=== PATIENT | male | born 1940 | race Caucasian/White ===

== ENCOUNTER → 2018-05-08 | Day surgery (SDC) | payer OTHER ==
[2018-04-22 16:24] VITALS: BMI 30.8
[~2018-05-08] MED LIST: DESFLURANE GAS 240 ML BOTTLE IH ONE; LIDOCAINE 1%/EPI 1:100000 (20 ML MULTI DOSE VIAL) ONE; LIDOCAINE HCL 1%, 10 MG/ML (20ML VIAL) INF ONE; LIDOCAINE HCL 1%, 10 MG/ML (20ML VIAL) ONE; MIDAZOLAM HCL 2 MG/2 ML SINGLE DOSE VIAL ONE; PROPOFOL 20 ML ONE; SUCCINYLCHOLINE CHLORIDE 200 MG/10 ML VIAL ONE; ceFAZolin SODIUM 1 GM VIAL ONE
[2018-05-08 06:16] VITALS: TEMP 97.6
--- NOTE | 2018-05-08 11:03 | OP ---
Operative Note - Note: Operative Date: 05/08/18 Pre-Operative Diagnosis: Multiple Basal Cell Carcinomas- Scalp, Neck, Back Operation: Excision of Basal Cell Carcinoma Right Parietal Region with Frozen Section and Double Rotation Flap Closure, Excision Basal Cell Carcinoma Left Neck with Frozen section and Flap closure, Excision Basal Cell Carcinomas Left temporal scalp and Right Upper Back. Post-Operative Diagnosis: Same as Pre-op Surgeon: Shailesh Ramires Anesthesia: Fractional Specimens Removed: Basal Cell Carcinomas Scalp x 2, LEft neck, Right upper Back Operative Report Dictated: Yes
--- NOTE | 2018-05-08 11:35 | OP ---
DATE OF OPERATION: 05/08/2018 AGE: 78. SEX: Male. PREOPERATIVE DIAGNOSIS: Multiple basal cell carcinomas of the scalp, neck, and back. POSTOPERATIVE DIAGNOSIS: Multiple basal cell carcinomas of the scalp, neck, and back. PROCEDURE PERFORMED: 1. Excision of basal cell carcinoma, right parietal region with frozen section and double rotation flap closure. 2. Excision of basal cell carcinoma, left neck with frozen section and flap closure. 3. Excision of basal cell carcinoma, left temporal scalp. 4. Excision of basal cell carcinoma, right upper back. SURGEON: Shailesh Ramires MD ANESTHESIA: Fractional. PROCEDURE: The patient was on the operating table in supine position, and fractional anesthesia was administered by the anesthesiologist. The surgical areas were each injected with a solution of 1% lidocaine with epinephrine using a 30-gauge needle. After allowing sufficient time for the epinephrine to take effect, the right parietal scalp lesion was addressed first. This lesion was approximately 2 cm in width and required approximately a 2.5-cm excision. This was designed in rhomboid fashion with the plan of using bilateral rhomboid flaps for closure. The incision was made as marked, and the lesion was excised down to galea. Hemostasis was achieved with electrocautery, and the lesion was tagged both anteriorly and inferiorly for pathological orientation. While this lesion was pending frozen section, the second lesion requiring frozen section of the left neck was infiltrated with a solution of 1% lidocaine with epinephrine and excised and also sent for frozen section. Simple excisions of the left temporal scalp lesion and left upper back lesion were performed with elliptical excisions and closed primarily. These closures were performed in layered fashion. Deep tissues were closed with number 4-0 Biosyn suture in interrupted, buried fashion, and skin was closed with number 5-0 nylon suture in simple interrupted fashion. Frozen section of the other 2 lesions revealed complete excisions; so, closure was performed. Closure of the left neck lesion was performed by undermining both sides of the flap modestly using electrocautery and advancing closure in layered fashion. Deep tissues were closed with number 4-0 Biosyn suture in interrupted buried fashion, and skin was closed with number 4-0 and 5-0 nylon suture in continuous horizontal mattress fashion. The right parietal lesion was then approached for closure, and the bilateral rhomboid-type flap closure was designed. These incisions were made as marked, and flaps were undermined and rotated and inset in layered fashion. Deep tissues closed with number 4-0 Biosyn suture in interrupted buried fashion and skin closed with number 4-0 and 5-0 nylon suture in simple interrupted fashion. Sterile dressings were then applied and secured with Tegaderm dressings. The patient was then awoken from anesthesia without any difficulty and taken from the operating room to the recovery room in satisfactory condition, having tolerated the procedure well. Bernardo ROCHE/[id number]
[2018-05-08 13:00] VITALS: BP 127/56; PULSE 75
--- NOTE | 2018-05-13 14:21 | PATH ---
Surgical Pathology Report Patient Name: ELENA MARTINEZ Med. Rec. #: [id number] /Age/Gender: 1940 (Age: 78) / M Account: [id number] Location: [facility] SURGICAL Taken: 05/08/2018 Received: 05/08/2018 Reported: 05/13/2018 Physicians: Shailesh Ramires M.D. Specimen(s) Received A: SCALP RIGHT TEMPORAL AREA B: LEFT NECK C: RIGHT UPPER BACK SKIN LESION Clinical History Basal cell carcinoma Intraoperative Consult Diagnosis A. Lesion right temporal area, excision: Closest inferior (en face) margin is negative. B. Left neck lesion, excision: Medical Office Asst surgical margins are negative. Fran West, 05/08/18. Final Diagnosis A. SKIN, SCALP, TEMPORAL, LESION, RIGHT, EXCISION (FS): INVASIVE SQUAMOUS CELL CARCINOMA, MODERATELY DIFFERENTIATED, KERATINIZING TYPE, ULCERATED AND INFLAMED. TUMOR MEASURES 1.1 x 0.5 CM. NO LYMPHOVASCULAR OR PERINEURAL INVASION IDENTIFIED PRIOR BIOPSY SITE CHANGES PRESENT. SURGICAL MARGINS ARE NEGATIVE; CLOSEST INFERIOR (EN FACE MARGIN IS NEGATIVE). B. SKIN, NECK, LEFT, EXCISION (FS): INVASIVE SQUAMOUS CELL CARCINOMA, MODERATELY DIFFERENTIATED, WITH FOCAL BASALOID FEATURES. TUMOR MEASURES 1 x 0.4 CM IN GREATEST DIMENSION. NO LYMPHOVASCULAR OR PERINEURAL INVASION IDENTIFIED SURGICAL MARGINS ARE NEGATIVE. SEE COMMENT. C. SKIN, UPPER BACK, RIGHT, EXCISION: INVASIVE BASAL CELL CARCINOMA. TUMOR MEASURES 1 x 0.2 CM. NO LYMPHOVASCULAR OR PERINEURAL INVASION IDENTIFIED SURGICAL MARGINS ARE NEGATIVE. Comment: Part B, Immunohistochemical stains performed at [place], [place] ([id number]) and interpreted at [facility] show the tumor is positive for high molecular cytokeratin and ERASMO (patchy); while negative for Butch-Ep4. Overall immunophenotype is consistent with squamous cell carcinoma with focal basaloid features. Prior materials are noted. Electronically Signed Dayana Reddy M.D. Gross Description A. Received fresh for intraoperative consultation, labeled "lesion right temporal area" is a 3 x 1.6 skin ellipse excised to a depth of 0.4 cm, with a short suture designating inferior margin and a long suture designating anterior margin, per surgeon. Clock orientation is used. The specimen is inked as follows: 11-5: blue (including inferior margin, 3:00), 5-11: red (9:00, superior); black deep margin. The surface shows a variegated ulcerated lesion measuring 1.1 x 0.5 cm which abuts the inferior (3:00) margin, 0.2 from superior (9:00) margin, 0.5 cm from superior, 0.7 cm from anterior, and 0.3 from deep margin. Medical Office Asst en face sections are submitted for frozen section analysis. The specimen is entirely submitted in 6 cassettes as follows: FSA1: Frozen section residue (enface margins: inferior (3:00), 12-3, 3-6); FSA2: Perpendicular section, lesion with deep margin; 3-4: Sequential sections of lesion, anterior-posterior; 5- bisected tips (anterior,12:00); 6- bisected tips (posterior,6:00). B. Received fresh for intraoperative consultation, labeled "left neck basal cell carcinoma" is a 3.2 x 1.7 cm skin ellipse excised to a depth of 4 mm, with a short suture designating the anterior margin and a long suture indicating the superior margin, per surgeon. The specimen is inked as follows: anterior-blue, posterior-red, deep margin, superior and inferior tips - black. The surface of the skin shows a 0.9 x 0.4 cm ill-defined brown depressed lesion, 5 mm from the anterior margin and > 1 cm from all other radial margins. Medical Office Asst sections are submitted for frozen section analysis. The specimen is entirely submitted in four cassettes as follows: FSB1: frozen section residue; B2, additional renewals representative sections of lesion with anterior, posterior and deep margins; B3- superior tip; B4: inferior tip. C. Received in formalin labeled "right upper back skin lesion," is a 2.6 x 1.4 cm brown, elliptical, unoriented portion of skin excised to depth of 0.6 cm. The epidermal surface displays a 1.0 x 0.9 cm brown-pink, crusted lesion. The lesion is 0.1 cm from the closest radial margin. The base is inked green and the specimen is serially sectioned. The specimen is entirely submitted in 5 cassettes as follows: 1-undesignated tips; 6-7-zhiyqflkuzfh submitted remainder of specimen (lesion in cassettes 3-4). DL/05/08/2018 ebram/05/08/2018
== END | disposition home or self-care (01) ==
LOC: JASU-SURG 05:07
PROVIDERS: ATTEND Plastic Surgery
PROC: 0JB50ZZ Excision of Left Neck Subcutaneous Tissue and Fascia, Open Approach (ICD-10-PCS; 2018-05-08)
PROC: 0JX50ZZ Transfer Left Neck Subcutaneous Tissue and Fascia, Open Approach (ICD-10-PCS; principal; 2018-05-08 08:00)
DX: C44.41 Basal cell carcinoma of skin of scalp and neck (principal); C44.319 Basal cell carcinoma of skin of other parts of face; C44.519 Basal cell carcinoma of skin of other part of trunk; I10 Essential (primary) hypertension; E11.9 Type 2 diabetes mellitus without complications; Z79.4 Long term (current) use of insulin
CPT/HCPCS: 82962; 88305-TC; 88331-TC

== ENCOUNTER 2019-09-06 16:13 | Inpatient (IN) | payer OTHER ==
--- NOTE | 2019-09-06 17:17 | PDOC ---
Documentation entered by Wesley Pratt SCRIBE, acting as scribe for Camille Schroeder MD. Camille Schroeder MD: This documentation has been prepared by the Terence garcía Daniel, SCRIBE, under my direction and personally reviewed by me in its entirety. I confirm that the documentation accurately reflects all work, treatment, procedures, and medical decision making performed by me. Attending Attestation - Resident Resident Name: Santos Gao - ED Attending Attestation I have performed the following: I have examined & evaluated the patient, The case was reviewed & discussed with the resident, I agree w/resident's findings & plan, Exceptions are as noted - HPI HPI: 09/06/19 17:17 79 yo male BIBA from or hemoglobin of 6 and right lower lobe infiltrate seen on chest x-ray Past medical history significant for chronic blood infusions for chronic anemia Patient has a chronic Tracheostomy 09/06/19 17:43 - Physicial Exam PE: 09/06/19 19:11 alert 79 yo male with chronic trach had c/o shortness of breath when I saw him lungs decreased bs b/l abd g tube, no eboun,nontender neuro alert,poor historian 09/06/19 21:01 - Medical Decision Making 09/06/19 17:46 Due to the reported right lower lobe infiltrate on the anterior chest x-ray patient was given Zosyn and vancomycin after ultrasound was used to establish IV access EKG is normal sinus rhythm with occasional PVCs , premature atrial complexes at a rate of 100 bpm, QTC is equal to 410 no signs of acute ischemia appreciated 09/06/19 17:48 Low grade fever 100.4 09/06/19 18:42 Review of the labs shows a leukocytocysis of about 15,000, hemoglobin 8.3, hematocrit 26.7 and normal platelets The LFTs are elevated Troponin is less than 0.02 INR is 1.74 and review his chemistry shows bumped BNP of 47 and glucose of 218 cxr reveals bilateral infiltrates 09/06/19 21:03 pr admitted to ICU pt is FULL CODE
[2019-09-06] MEDS ORDERED: VANCOMYCIN 1,000 MG in DEXTROSE 5%-WATER - 250 ML IVPB ONE (17:35)
[2019-09-06] MEDS ORDERED: PIPERACILLIN/TAZOB 4.5 GM 4.5 GM in DEXTROSE 5%-WATER 100 ML IVPB ONE (17:35)
[2019-09-06 17:42] LABS: BASO % 0.3 % (0-2.0); EOS % 1.9 % (0-4.5); HEMATOCRIT 26.7 % (35.4-49); HEMOGLOBIN 8.3 GM/dL (11.7-16.9); LYMPH % 7.5 % (8-40); MCH 28.6 pg (25.7-33.7); MCHC 30.9 g/dl (32.0-35.9); MEAN CELL VOLUME 92.4 fl (80-96); MEAN PLT VOLUME 9.3 fl (7.5-11.1); MONO % 9.8 % (3.8-10.2); NEUT % 80.5 % (42.8-82.8); PLATELET COUNT 304 K/MM3 (134-434); RBC 2.89 M/mm3 (4.00-5.60); RDW 19.5 % (11.9-15.9); WHITE BLOOD COUNT 14.9 K/mm3 (4.0-10.0)
[2019-09-06 17:48] LABS: VENOUS PC02 62.9 mmHg (38-52); VENOUS PH 7.34 (7.31-7.41)
[2019-09-06 17:49] LABS: VENOUS PO2 < 49 mmHg (28-48)
[2019-09-06] MEDS ORDERED: PIPERACILLIN/TAZOB 4.5 GM 4.5 GM/100 ML BAG IVPB ONE (17:55)
[2019-09-06 17:56] LABS: INR 1.74 (0.83-1.09); PROTHROMBIN TIME (PATIENT) 20.6 SEC (9.7-13.0)
[2019-09-06] MEDS ORDERED: VANCOMYCIN 1 GRAM (PRE-DOCKED) 1,000 MG/250 ML BAG IVPB ONE (17:56)
[2019-09-06 17:59] LABS: ACTIVATED PTT 43.5 SECONDS (25.2-36.5)
--- NOTE | 2019-09-06 18:03 | PDOC ---
History of Present Illness - General Chief Complaint: Abnormal Lab Results (Outside) Stated Complaint: Abnormal Labs Time Seen by Provider: 09/06/19 16:47 History Source: Patient, Family, Alf Records Exam Limitations: Clinical Condition - History of Present Illness Initial Comments: 09/06/19 18:03 79M with a PMH of COPD, DM, HTN, GERD, hypothyroidism who presents to to the ER from [facility] for abnormal labs. Pt is with his and daughters who help provide the history. The states that the patient had bloodwork that was was abnormal 2 days ago. They state that he had a "high WBC" and he "always has low hemoglobin" secondary to anemia of chronic disease per pt's PCP. The patient admits to a worsening cough x "a few days" with fever and chills. Denies CP, worsening SOB. Past History - Past Medical History Allergies/Adverse Reactions: Allergies Allergy/AdvReac Type Severity Reaction Status Date / Time heparin Allergy Verified 09/06/19 16:50 Home Medications: Ambulatory Orders Atenolol [Tenormin -] 50 mg PO DAILY 12/22/12 Atorvastatin Ca [Lipitor] 40 mg PO DAILY 12/22/12 Colchicine/Probenecid [Col-Benemid] 1 tab PO DAILY 12/22/12 Ezetimibe [Zetia] 10 mg PO DAILY 12/22/12 Insulin Lispro [Humalog] 12 unit SQ AC 12/22/12 Latanoprost 0.005% Eye Drops [Xalatan 0.005% Eye Drops -] 1 drop OU HS 12/22/12 Lisinopril/Hydrochlorothiazide [Lisinopril-Hctz 20-12.5 mg Tab] 1 each PO HS Aspirin [ASA -] 325 mg PO DAILY #0 03/23/15 Exenatide Microspheres [Bydureon Pen] 3.08 mg SQ WEEKLY 03/23/15 Insulin Glargine,Hum.rec.anlog [Lantus (10mL VIAL) -] 40 units SCJ HS 03/23/15 Levothyroxine [Synthroid -] 1 tab PO DAILY 03/23/15 [place]-3 Fatty Acids [Fish Oil] 1 cap PO DAILY 03/23/15 Anemia: No Asthma: No Cancer: Yes (squamous cell on back 2017) Cardiac Disorders: Yes (PAROXYSMAL ATRIAL FIBRILLATION x 1 episode) CVA: No COPD: No CHF: No Dementia: No Diabetes: Yes (IDDM) GI Disorders: Yes (DIVERTICULOSIS,COLON POLYPS,12 ADENOMAS) Disorders: Yes (NEPHROLITHIASIS) HTN: Yes Hypercholesterolemia: Yes Kidney Stones: Yes Liver Disease: No Seizures: No Thyroid Disease: Yes (HYPOTHYROIDISM) - Surgical History Abdominal Surgery: No Appendectomy: No Cardiac Surgery: No (ANGIOPLASTY) Cholecystectomy: No Lung Surgery: No Neurologic Surgery: No Orthopedic Surgery: Yes (FX LEG 1960S, CLOSED REDUCTION OF R ANKLE) - Psycho Social/Smoking Cessation Hx Smoking History: Former smoker Have you smoked in the past 12 months: No If you are a former smoker, when did you quit?: 45 years ago Information on smoking cessation initiated: No Hx Alcohol Use: No Drug/Substance Use Hx: No Substance Use Type: None Hx Substance Use Treatment: No Review of Systems - Review of Systems Able to Perform ROS?: Yes Comments:: 09/06/19 18:45 GENERAL/CONSTITUTIONAL: + for fever or chills. No weakness. HEAD, EYES, EARS, NOSE AND THROAT: No change in vision. No ear pain or discharge. No sore throat. CARDIOVASCULAR: No chest pain, palpitations, or lightheadedness. RESPIRATORY: + for cough. No wheezing, shortness of breath, or hemoptysis. GASTROINTESTINAL: No abdominal pain, nausea, vomiting, diarrhea, or constipation. GENITOURINARY: No dysuria, frequency, hematuria, or change in urination. MUSCULOSKELETAL: No joint or muscle swelling or pain. No neck or back pain. SKIN: No rash or lesions. NEUROLOGIC: No headache, numbness, tingling, focal weakness, loss of consciousness, or change in strength/sensation. Is the patient limited Portuguese proficient: No *Physical Exam - Vital Signs Last Vital Signs Temp Pulse Resp BP Pulse Ox 100.4 F H 102 H 20 161/70 99 09/06/19 17:38 09/06/19 17:38 09/06/19 17:38 09/06/19 16:50 09/06/19 17:38 - Physical Exam 09/06/19 18:46 GENERAL: Well developed, well nourished. Awake and alert. No acute distress. HEENT: Normocephalic, atraumatic. Hearing grossly normal. Moist mucous membranes. PERRLA, EOMI. No conjunctival pallor. Sclera are non-icteric. NECK: Trach in place. No JVD. CARDIOVASCULAR: Regular rate and rhythm. No murmurs, rubs, or gallops. PULMONARY: Decreased lung sounds in b/l lower lobes. Not in respiratory distress. ABDOMINAL: Soft. Non-tender. Non-distended. No rebound or guarding. GENITOURINARY: No CVA tenderness bilaterally. MUSCULOSKELETAL: Normal range of motion at all joints. No bony deformities or tenderness. EXTREMITIES: No cyanosis. No clubbing. No edema. No calf tenderness or swelling. SKIN: Sacral wound noted, stage 3. R heel wound noted. R latissimus wound noted. Otherwise, warm and dry. Normal capillary refill. No rashes. No jaundice. NEUROLOGICAL: Alert, awake, appropriate. Cranial nerves 2-12 grossly intact. Normal speech. PSYCHIATRIC: Cooperative. Good eye contact. Appropriate mood and affect. ED Treatment Course - LABORATORY CBC & Chemistry Diagram: 09/06/19 17:00 09/06/19 17:00 - ADDITIONAL ORDERS Additional order review: Laboratory Results 09/06/19 17:00 VBG pH 7.34 POC VBG pCO2 62.9 H POC VBG pO2 < 49 H VBG HCO3 32.7 H VBG O2 Sat (Gayle) 50.6 L VBG Base Excess 6.3 H 09/06/19 17:00 RBC 2.89 L MCV 92.4 MCHC 30.9 L RDW 19.5 H MPV 9.3 Neutrophils % 80.5 D Lymphocytes % 7.5 L D Monocytes % 9.8 Eosinophils % 1.9 Basophils % 0.3 - RADIOLOGY Radiology Studies Ordered: Category Date Time Status CHEST X-RAY PORTABLE* [RAD] Stat Radiology 09/06/19 16:53 Taken Medical Decision Making - Medical Decision Making 09/06/19 18:47 79M with MMP who presents to the ER with abnormal labs (increased WBC and decreased Hgb). CXR here shows b/l PNA. WBC 14. Hgb 8.4, not requiring immediate transfusion. Will give broad spectrum abx and admit. Discharge - Discharge Information Problems reviewed: Yes Clinical Impression/Diagnosis: Pneumonia Qualifiers: Pneumonia type: due to unspecified organism Laterality: bilateral Lung location : lower lobe of lung Qualified Code(s): J18.9 - Pneumonia, unspecified organism Sepsis Qualifiers: Sepsis type: sepsis due to unspecified organism Sepsis acute organ dysfunction status: unspecified Qualified Code(s): A41.9 - Sepsis, unspecified organism Condition: Guarded - Admission Yes - Follow up/Referral Referrals: Ed Jackson MD [Primary Care Provider] - - Patient Discharge Instructions - Post Discharge Activity
[2019-09-06 18:11] LABS: BILIRUBIN,TOTAL 0.3 mg/dL (0.2-1); BLOOD UREA NITROGEN 47.4 mg/dL (7-18); CALCIUM 8.5 mg/dL (8.5-10.1); CREATININE 0.7 mg/dL (0.55-1.3); POTASSIUM 4.3 mmol/L (3.5-5.1); TOT PROT 6.9 g/dl (6.4-8.2)
[2019-09-06] MEDS ORDERED: ACETAMINOPHEN 1000 MG/100 ML VIAL (NON FORMULARY) IVPB ONE (18:32)
[2019-09-06] MEDS ORDERED: SODIUM CHLORIDE 0.9% 1000 ML INFUS.BAG IV ONE (18:52)
[2019-09-06] MEDS ORDERED: ACETAMINOPHEN INJECTION 100 ML IVPB ONE (19:21)
[2019-09-06] MEDS ORDERED: LACTATED RINGERS SOLUTION 1,000 ML/1,000 ML INFUS.BAG IV SCH (22:00)
[2019-09-06] MEDS ORDERED: CHLORHEXIDINE GLUCONATE 4% CLEANSER FOR DECOLONIZATION TP SCH (22:00)
[2019-09-06] MEDS ORDERED: MUPIROCIN 2% TOPICAL OINTMENT FOR DECOLONIZATION NS SCH (22:00)
--- NOTE | 2019-09-06 22:09 | HP ---
Admitting History and Physical - Primary Care Physician PCP: Cheryl Joseph ([facility]) - Admission Chief Complaint: Abnormal Lab Values, Cough, Fever, Chills History of Present Illness: This is a 79 y/o man from [facility] with a PMHx of Chronic Respiratory Failure s/ p Trach, COPD, Chronic Anemia (blood transfusions), pAfib, HTN, HLD, DM, GERD, Nephrolithasis, Squamous Ca (Back,2017). Who presents to the ED for abnormal lab value- hemoglobin of 6 and right lower lobe infiltrate seen on chest x-ray done at the facility. The patient's family reported to the ED that the patient has had increased cough, fever and chills for several days. ED course was noted for: (1) T max 100.4 (2) Hgb 8.5, Hct 26.7 (3) Chest Xray image- bilateral infiltrates History Source: Family Member, Transfer Record Limitations to Obtaining History: Clinical Condition - Past Medical History Cardiovascular: Yes: AFIB, HTN, Hyperlipdemia Pulmonary: Yes: COPD, O2 Dependent (trach-vent) Gastrointestinal: Yes: GERD Renal/: Yes: Renal Calculi Heme/Onc: Yes: Anemia Infectious Disease: Yes: MRSA (sputum) Endocrine: Yes: Diabetes Mellitus, Hypothyroidism Dermatology: Yes: Squamous Cell (lumbar) - Past Surgical History Additional Past Surgical History: Tracheotomy G-Tube R-Ankle - Smoking History Smoking history: Former smoker Have you smoked in the past 12 months: No If you are a former smoker, when did you quit?: 45 years ago - Alcohol/Substance Use Hx Alcohol Use: No History of Substance Use: reports: None - Social History Usual Living Arrangement: Yes: [facility]pc ADL: Support Services History of Recent Travel: No Home Medications - Allergies Allergies/Adverse Reactions: Allergies Allergy/AdvReac Type Severity Reaction Status Date / Time heparin Allergy Verified 09/06/19 16:50 - Home Medications Home Medications: Ambulatory Orders Atorvastatin Ca [Lipitor] 80 mg PO DAILY 12/22/12 Colchicine/Probenecid [Col-Benemid] 1 tab PO DAILY 12/22/12 Ezetimibe [Zetia] 10 mg PO DAILY 12/22/12 Insulin Lispro [Humalog] 12 unit SQ AC 12/22/12 Latanoprost 0.005% Eye Drops [Xalatan 0.005% Eye Drops -] 1 drop OU HS 12/22/12 Lisinopril/Hydrochlorothiazide [Lisinopril-Hctz 20-12.5 mg Tab] 1 each PO HS Aspirin [ASA -] 325 mg PO DAILY #0 03/23/15 Exenatide Microspheres [Bydureon Pen] 3.08 mg SQ WEEKLY 03/23/15 Insulin Glargine,Hum.rec.anlog [Lantus (10mL VIAL) -] 40 units SCJ HS 03/23/15 Levothyroxine [Synthroid -] 1 tab PO DAILY 03/23/15 Banks-3 Fatty Acids [Fish Oil] 1 cap PO DAILY 03/23/15 Albuterol 2.5/Ipratropium 0.5 [Duoneb -] 1 neb NEB Q4H 09/06/19 Amiodarone HCl 200 mg PO DAILY 09/06/19 Apixaban [Eliquis] 5 mg PO BID 09/06/19 Metoprolol Tartrate 25 mg PO DAILY 09/06/19 Family Medical History Family History: Unable to Obtain Review of Systems - Review of Systems Constitutional: reports: Chills, Fever Eyes: reports: No Symptoms HENT: reports: No Symptoms Neck: reports: No Symptoms Respiratory: reports: Cough Gastrointestinal: reports: No Symptoms Genitourinary: reports: Incontinence Breasts: reports: No Symptoms Reported Musculoskeletal: reports: No Symptoms Integumentary: reports: No Symptoms Neurological: reports: No Symptoms Endocrine: reports: No Symptoms Hematology/Lymphatic: reports: No Symptoms Psychiatric: reports: No Symptoms Pain Intensity: 0 Physical Examination Vital Signs: Vital Signs Temperature 100.4 F H 09/06/19 17:38 Pulse Rate 102 H 09/06/19 17:38 Respiratory Rate 23 H 09/06/19 20:00 Blood Pressure 161/70 09/06/19 16:50 O2 Sat by Pulse Oximetry (%) 99 09/06/19 17:38 Constitutional: Yes: Mild Distress Eyes: Yes: WNL, Conjunctiva Clear, EOM Intact, PERRL HENT: Yes: WNL, Atraumatic, Normocephalic Neck: Yes: Other (trach- vent dependent) Cardiovascular: Yes: Tachycardia, Pulse Irregular, S1, S2 Respiratory: Yes: Diminished, Rhonchi, Wheezes, Other (trach- vent) Gastrointestinal: Yes: Soft, Other (PEG) Renal/: Yes: Incontinence Breast(s): Yes: WNL Musculoskeletal: Yes: WNL Extremities: Yes: WNL Edema: No Peripheral Pulses WNL: Yes Integumentary: Yes: Pressure Ulcer (stage 3- sacrum stage 2- right heel unstageable- left heel) Neurological: Yes: Alert, Oriented, Cran Nerves II-XII Intact ...Motor Strength: WNL Psychiatric: Yes: WNL, Alert, Oriented Labs: CBC, BMP 09/06/19 17:00 09/06/19 17:00 Laboratory Results - last 24 hr 09/06/19 09/06/19 09/06/19 17:00 17:00 17:00 WBC 14.9 H RBC 2.89 L Hgb 8.3 L Hct 26.7 L D MCV 92.4 MCH 28.6 MCHC 30.9 L RDW 19.5 H Plt Count 304 MPV 9.3 Absolute Neuts (auto) 12.0 H Neutrophils % 80.5 D Lymphocytes % 7.5 L D Monocytes % 9.8 Eosinophils % 1.9 Basophils % 0.3 Nucleated RBC % 0 PT with INR 20.60 H INR 1.74 H PTT (Actin FS) 43.5 H VBG pH POC VBG pCO2 POC VBG pO2 VBG HCO3 VBG O2 Sat (Gayle) VBG Base Excess Sodium Potassium Chloride Carbon Dioxide Anion Gap BUN Creatinine Est GFR (CKD-EPI)AfAm Est GFR (CKD-EPI)NonAf POC Glucometer Random Glucose Lactic Acid Calcium Total Bilirubin AST ALT Alkaline Phosphatase Troponin I < 0.02 Total Protein Albumin Influenza A (Rapid) Influenza B (Rapid) Blood Type Antibody Screen 09/06/19 09/06/19 09/06/19 17:00 17:00 17:00 WBC RBC Hgb Hct MCV MCH MCHC RDW Plt Count MPV Absolute Neuts (auto) Neutrophils % Lymphocytes % Monocytes % Eosinophils % Basophils % Nucleated RBC % PT with INR INR PTT (Actin FS) VBG pH 7.34 POC VBG pCO2 62.9 H POC VBG pO2 < 49 H VBG HCO3 32.7 H VBG O2 Sat (Gayle) 50.6 L VBG Base Excess 6.3 H Sodium 150 H Potassium 4.3 Chloride 113 H Carbon Dioxide 33 H Anion Gap 5 L BUN 47.4 H Creatinine 0.7 Est GFR (CKD-EPI)AfAm 104.03 Est GFR (CKD-EPI)NonAf 89.76 POC Glucometer Random Glucose 218 H Lactic Acid Calcium 8.5 Total Bilirubin 0.3 AST 79 H ALT 96 H Alkaline Phosphatase 159 H Troponin I Total Protein 6.9 Albumin 2.0 L Influenza A (Rapid) Influenza B (Rapid) Blood Type A NEGATIVE Antibody Screen Negative 09/06/19 09/06/19 09/06/19 17:15 18:50 19:05 WBC RBC Hgb Hct MCV MCH MCHC RDW Plt Count MPV Absolute Neuts (auto) Neutrophils % Lymphocytes % Monocytes % Eosinophils % Basophils % Nucleated RBC % PT with INR INR PTT (Actin FS) VBG pH POC VBG pCO2 POC VBG pO2 VBG HCO3 VBG O2 Sat (Gayle) VBG Base Excess Sodium Potassium Chloride Carbon Dioxide Anion Gap BUN Creatinine Est GFR (CKD-EPI)AfAm Est GFR (CKD-EPI)NonAf POC Glucometer Random Glucose Lactic Acid 1.3 Calcium Total Bilirubin AST ALT Alkaline Phosphatase Troponin I Total Protein Albumin Influenza A (Rapid) Negative Influenza B (Rapid) Negative Blood Type Cancelled Antibody Screen Cancelled 09/06/19 22:36 WBC RBC Hgb Hct MCV MCH MCHC RDW Plt Count MPV Absolute Neuts (auto) Neutrophils % Lymphocytes % Monocytes % Eosinophils % Basophils % Nucleated RBC % PT with INR INR PTT (Actin FS) VBG pH POC VBG pCO2 POC VBG pO2 VBG HCO3 VBG O2 Sat (Gayle) VBG Base Excess Sodium Potassium Chloride Carbon Dioxide Anion Gap BUN Creatinine Est GFR (CKD-EPI)AfAm Est GFR (CKD-EPI)NonAf POC Glucometer 289 Random Glucose Lactic Acid Calcium Total Bilirubin AST ALT Alkaline Phosphatase Troponin I Total Protein Albumin Influenza A (Rapid) Influenza B (Rapid) Blood Type Antibody Screen Current Medications Generic Name Dose Route Start Last Admin Trade Name Freq PRN Reason Stop Dose Admin Albuterol/Ipratropium 1 amp 09/07/19 00:00 09/07/19 01:05 Duoneb - NEB 1 amp RQ4H EFREN Administration Amiodarone HCl 200 mg 09/07/19 10:00 Cordarone - PO DAILY EFREN Apixaban 5 mg 09/07/19 10:00 Eliquis - PO BID EFREN Atorvastatin Calcium 80 mg 09/07/19 22:00 Lipitor - PO HS EFREN Chlorhexidine Gluconate 1 applic 09/06/19 22:00 Hibiclens For Decolonization - TP HS EFREN Lactated Ringer's 1,000 ml in 1,000 mls @ 60 mls/hr 09/06/19 22:00 09/06/19 23:24 Lactated Ringers Solution IV 60 mls/hr ASDIR EFREN Administration Piperacillin Sod/Tazobactam 100 mls @ 200 mls/hr 09/07/19 02:00 Sod 4.5 gm/ Dextrose IVPB Q8H-IV EFREN Protocol Piperacillin Sod/Tazobactam 100 mls @ 200 mls/hr 09/07/19 02:00 Sod 4.5 gm/ Dextrose IVPB 09/07/19 18:29 Q8H-IV EFREN Protocol Insulin Aspart 1 vial 09/06/19 22:00 09/06/19 23:25 Novolog Vial Sliding Scale - SQ 6 units ACHS EFREN Administration Protocol Levothyroxine Sodium 50 mcg 09/07/19 07:00 Synthroid - PO ACBK EFREN Metoprolol Tartrate 25 mg 09/07/19 10:00 Lopressor - PO DAILY EFREN Mupirocin 1 applic 09/06/19 22:00 Bactroban Ointment (For Decolonization) - NS 09/11/19 21:59 BID EFREN Intake & Output 09/04/19 09/05/19 09/06/19 09/07/19 23:59 23:59 23:59 23:59 Weight 86.137 kg Imaging - Results Chest X-ray: Image Reviewed EKG: Image Reviewed Problem List - Problems (1) Sepsis Assessment/Plan: Likely due to Pneumonia Blood Cultures-pending Urine Cultures-pending Urine Legionella-pending Sputum Culture-pending Sepsis Criteria Met IV: T Max 100.4, P 119,WBC 15.0, BUN 47 qSOFA 2 Zosyn and Vancomycin given in ED, will continue Appreciate ID consult Monitor CBC, BMP MAP>65 Gentle IVF Code(s): A41.9 - SEPSIS, UNSPECIFIED ORGANISM Qualifiers: Sepsis type: sepsis due to unspecified organism Sepsis acute organ dysfunction status: unspecified Qualified Code(s): A41.9 - Sepsis, unspecified organism (2) Pneumonia Assessment/Plan: Will treat for HAP vs VAP [id number] 2 Chest xray from [place]- right infiltrate Chest xray image obtained today- bilateral infiltrates +Leukocytosis T Max 100.4 Blood Cultures, Urine Cultures, Urine Legionella-pending Sputum Culture-pending Zosyn, Vancomycin given in ED, will continue Appreciate ID consult Monitor CBC, BMP O2- trach-vent Monitor vent settings Duonebs Code(s): J18.9 - PNEUMONIA, UNSPECIFIED ORGANISM Qualifiers: Pneumonia type: due to unspecified organism Laterality: bilateral Lung location: lower lobe of lung Qualified Code(s): J18.9 - Pneumonia, unspecified organism (3) Chronic respiratory failure with hypoxia and hypercapnia Assessment/Plan: s/p Trach- vent dependent Appreciate Pulm consult Monitor Spo2 Duonebs Code(s): J96.11 - CHRONIC RESPIRATORY FAILURE WITH HYPOXIA; J96.12 - CHRONIC RESPIRATORY FAILURE WITH HYPERCAPNIA (4) COPD (chronic obstructive pulmonary disease) Assessment/Plan: Continue Duonebs Chest Xray image- bilateral infiltrates Appreciate Pulm consult Monitor vitals Code(s): J44.9 - CHRONIC OBSTRUCTIVE PULMONARY DISEASE, UNSPECIFIED (5) Paroxysmal A-fib Assessment/Plan: stable Continue cardiac monitoring EKG- NSR with occasional PVCs, QTc 410 [id number] Continue BB, Eliquis Code(s): I48.0 - PAROXYSMAL ATRIAL FIBRILLATION (6) HTN (hypertension) Assessment/Plan: stable Monitor BP Continue Metoprolol Monitor renal function Code(s): I10 - ESSENTIAL (PRIMARY) HYPERTENSION (7) Diabetes mellitus Assessment/Plan: stable BGMs ISS Continue home med Code(s): E11.9 - TYPE 2 DIABETES MELLITUS WITHOUT COMPLICATIONS (8) HLD (hyperlipidemia) Code(s): E78.5 - HYPERLIPIDEMIA, UNSPECIFIED (9) GERD (gastroesophageal reflux disease) Code(s): K21.9 - GASTRO-ESOPHAGEAL REFLUX DISEASE WITHOUT ESOPHAGITIS Assessment/Plan This is a 79 y/o man from [facility] with a PMHx of Chronic Respiratory Failure s/ p Trach, COPD, Chronic Anemia (blood transfusions), pAfib, HTN, HLD, DM, GERD, Nephrolithasis, Squamous Ca (Back,2016). Admitted to ICU for Sepsis secondary to Pneumonia for further evaluation of their emergent condition. Plan: See Problem List FEN Replete lytes prn NPO DVT ppx OOB SCDs Continue Eliquis Code Status: Full Code Dispo: Requires Inpatient Care Visit type - Emergency Visit Emergency Visit: Yes ED Registration Date: 09/06/19 Care time: The patient presented to the Emergency Department on the above date and was hospitalized for further evaluation of their emergent condition. - New Patient This patient is new to me today: Yes Date on this admission: 09/06/19 - Critical Care Critical Care patient: Yes Total Critical Care Time (in minutes): 35 Critical Care Statement: The care of this patient involved high complexity decision making to prevent further life threatening deterioration of the patient 's condition and/or to evaluate & treat vital organ system(s) failure or risk of failure.
--- NOTE | 2019-09-06 22:23 | CONSULT ---
Consultation: REQUESTING PROVIDER: CONSULT REQUEST: We have been asked to medically evaluate this patient for acute respiratory distress. HISTORY OF PRESENT ILLNESS: 79 y.o. M PMH A-fib (on eliquis), cardiac stent placements, COPD, DM, HTN, GERD , diverticulosis, gout, chronic anemia, bladder & renal stones, hypothyroidism, multiple basal cell CA's (s/p excision) presenting from [facility] for pulmonary infiltrates seen on chest XR w/ complaints of mild dyspnea as well as anemia w/ hgb to 7.8. As per patient's (also his HCP), the patient was seen at a [facility] facility ([facility]) in July for respiratory distress 2/2 aspiration PNA; was subsequently intubated and trached after ~2weeks intubation; had + MRSA in sputum at this time. Since this time he has had chronic LLL infiltrates but as per [place] records CXR infiltrates are now b/l-- started on Ceftin @ [facility]. Pt also presenting with low grade fever, tachycardia & leukocytosis. Of note, pt's states he has been altered from baseline x 2-3 days. REVIEW OF SYSTEMS: CONSTITUTIONAL: Absent: fever, chills, diaphoresis, generalized weakness, malaise, loss of appetite, weight change HEENT: Absent: rhinorrhea, nasal congestion, throat pain, throat swelling, difficulty swallowing, mouth swelling, ear pain, eye pain, visual changes CARDIOVASCULAR: Absent: chest pain, syncope, palpitations, irregular heart rate, lightheadedness , peripheral edema RESPIRATORY: cough, shortness of breath, dyspnea Absent: orthopnea, wheezing, stridor, hemoptysis GASTROINTESTINAL: Absent: abdominal pain, abdominal distension, nausea, vomiting, diarrhea, constipation, melena, hematochezia GENITOURINARY: Absent: dysuria, frequency, urgency, hesitancy, hematuria, flank pain, genital pain MUSCULOSKELETAL: Absent: myalgia, arthralgia, joint swelling, back pain, neck pain SKIN: Absent: rash, itching, pallor HEMATOLOGIC/IMMUNOLOGIC: Absent: easy bleeding, easy bruising, lymphadenopathy, frequent infections ENDOCRINE: Absent: unexplained weight gain, unexplained weight loss, heat intolerance, cold intolerance NEUROLOGIC: mental status changes Absent: headache, focal weakness or paresthesias, dizziness, unsteady gait, seizure, bladder or bowel incontinence PSYCHIATRIC: Absent: anxiety, depression, suicidal or homicidal ideation, hallucinations. PHYSICAL EXAMINATION Vital Signs - 24 hr 09/06/19 09/06/19 09/06/19 16:40 16:50 17:38 Temperature 100.4 F H 100.4 F H Pulse Rate 94 H 102 H Respiratory 31 H 16 20 Rate Blood Pressure 161/70 O2 Sat by Pulse 98 99 Oximetry (%) 09/06/19 20:00 Temperature Pulse Rate Respiratory 23 H Rate Blood Pressure O2 Sat by Pulse Oximetry (%) GENERAL: AOx3. NAD. HEENT: Trached to vent, trach site C/D/I. Conjunctiva clear. LUNGS: Diffuse crackling throughout lower lung lobes HEART: RRR S1S2 heard no mrg ABDOMEN: Soft, nontender, not distended, normoactive bowel sounds, no guarding, no rebound, no masses. No hepatomegaly or splenomegaly. EXTR: no peripheral edema. 2+ pulses present b/l UE & LE NEUROLOGICAL: Cranial nerves II-XII intact. Able to speak relatively clearly w / trach. PSYCHIATRIC: Cooperative. Good eye contact. Appropriate mood and affect. SKIN: stage II sacral ulcer, unstageable L heel ulcer Laboratory Results - last 24 hr 09/06/19 09/06/19 09/06/19 17:00 17:00 17:00 WBC 14.9 H RBC 2.89 L Hgb 8.3 L Hct 26.7 L D MCV 92.4 MCH 28.6 MCHC 30.9 L RDW 19.5 H Plt Count 304 MPV 9.3 Absolute Neuts (auto) 12.0 H Neutrophils % 80.5 D Lymphocytes % 7.5 L D Monocytes % 9.8 Eosinophils % 1.9 Basophils % 0.3 Nucleated RBC % 0 PT with INR 20.60 H INR 1.74 H PTT (Actin FS) 43.5 H VBG pH POC VBG pCO2 POC VBG pO2 VBG HCO3 VBG O2 Sat (Gayle) VBG Base Excess Sodium Potassium Chloride Carbon Dioxide Anion Gap BUN Creatinine Est GFR (CKD-EPI)AfAm Est GFR (CKD-EPI)NonAf Random Glucose Lactic Acid Calcium Total Bilirubin AST ALT Alkaline Phosphatase Troponin I < 0.02 Total Protein Albumin Influenza A (Rapid) Influenza B (Rapid) Blood Type Antibody Screen 09/06/19 09/06/19 09/06/19 17:00 17:00 17:00 WBC RBC Hgb Hct MCV MCH MCHC RDW Plt Count MPV Absolute Neuts (auto) Neutrophils % Lymphocytes % Monocytes % Eosinophils % Basophils % Nucleated RBC % PT with INR INR PTT (Actin FS) VBG pH 7.34 POC VBG pCO2 62.9 H POC VBG pO2 < 49 H VBG HCO3 32.7 H VBG O2 Sat (Gayle) 50.6 L VBG Base Excess 6.3 H Sodium 150 H Potassium 4.3 Chloride 113 H Carbon Dioxide 33 H Anion Gap 5 L BUN 47.4 H Creatinine 0.7 Est GFR (CKD-EPI)AfAm 104.03 Est GFR (CKD-EPI)NonAf 89.76 Random Glucose 218 H Lactic Acid Calcium 8.5 Total Bilirubin 0.3 AST 79 H ALT 96 H Alkaline Phosphatase 159 H Troponin I Total Protein 6.9 Albumin 2.0 L Influenza A (Rapid) Influenza B (Rapid) Blood Type A NEGATIVE Antibody Screen Negative 09/06/19 09/06/19 09/06/19 17:15 18:50 19:05 WBC RBC Hgb Hct MCV MCH MCHC RDW Plt Count MPV Absolute Neuts (auto) Neutrophils % Lymphocytes % Monocytes % Eosinophils % Basophils % Nucleated RBC % PT with INR INR PTT (Actin FS) VBG pH POC VBG pCO2 POC VBG pO2 VBG HCO3 VBG O2 Sat (Gayle) VBG Base Excess Sodium Potassium Chloride Carbon Dioxide Anion Gap BUN Creatinine Est GFR (CKD-EPI)AfAm Est GFR (CKD-EPI)NonAf Random Glucose Lactic Acid 1.3 Calcium Total Bilirubin AST ALT Alkaline Phosphatase Troponin I Total Protein Albumin Influenza A (Rapid) Negative Influenza B (Rapid) Negative Blood Type Cancelled Antibody Screen Cancelled ASSESSMENT/PLAN: 79 y.o. M PMH A-fib (on eliquis 5mg BID), cardiac stent placements, COPD, DM, HTN, GERD, diverticulosis, gout, chronic anemia, bladder & renal stones, hypothyroidism, multiple basal cell CA's (s/p excision) presenting from [facility] for pneumonia. 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 pneumo ag -C/w duonebs, -Flu negative #Endo -hold home oral agents -ISS -BGMs ACHS -C/w synthroid 50mcg/daily -Sees Dr. elder outpatient #ID -leukocytosis, trend cbc -c/w vanc, zosyn; s/p 1 day Ceftin as per [facility] records -Hx +MRSA sputum cx -Contact precautions -ID consulted, Dr. Roberts -F/u urine, blood, sputum cx's #Heme/Onc -normocytic anemia -trend h&h; hgb today 8.3 -no signs of bleeding #GI -Transaminitis in setting of sepsis; trend lfts -f/u abd U/S #PPX -DVT: on eliquis #FEN -s/p 500mL NS bolus in ED; started LR @ 60mL/hr -hypernatremia -F/u speech & swallow #Code status: FULL CODE Dispo: We will continue to follow the patient. Thank you for this consultative opportunity. Visit type - Emergency Visit Emergency Visit: Yes ED Registration Date: 09/06/19 Care time: The patient presented to the Emergency Department on the above date and was hospitalized for further evaluation of their emergent condition. - New Patient This patient is new to me today: Yes Date on this admission: 09/07/19 - Critical Care Critical Care patient: Yes Total Critical Care Time (in minutes): 36 Critical Care Statement: The care of this patient involved high complexity decision making to prevent further life threatening deterioration of the patient 's condition and/or to evaluate & treat vital organ system(s) failure or risk of failure. ATTENDING PHYSICIAN STATEMENT I saw and evaluated the patient. I reviewed the resident's note and discussed the case with the resident. I agree with the resident's findings and plan as documented. SUBJECTIVE: OBJECTIVE: ASSESSMENT AND PLAN:
[2019-09-06] MEDS: INSULIN SLIDING SCALE (NOVOLOG) 1 VIAL SQ SCH (23:25)
[2019-09-07] MEDS: ALBUTEROL SO4 2.5/IPRATROPIUM 0.5 INH SOL 3 ML VIAL.NEB. NEB SCH ×5 (01:05→20:45)
[2019-09-07] MEDS ORDERED: PIPERACILLIN/TAZOB 4.5 GM 4.5 GM in DEXTROSE 5%-WATER 100 ML IVPB SCH (02:00)
[2019-09-07] MEDS: PIPERACILLIN/TAZOB 4.5 GM 4.5 GM in DEXTROSE 5%-WATER 100 ML IVPB SCH ×2 (02:30→10:01)
[2019-09-07] MEDS ORDERED: PIPERACILLIN/TAZOBACTAM 4.5 GM VIAL IVPB ONE ×2 (03:56→08:55)
[2019-09-07] MEDS ORDERED: DEXTROSE 5%-WATER 100 ML IVPB ONE ×2 (03:57→08:55)
[2019-09-07] MEDS: INSULIN SLIDING SCALE (NOVOLOG) 1 VIAL SQ SCH ×4 (06:00→22:23)
[2019-09-07] MEDS: LEVOTHYROXINE NA 50 MCG TABLET (FP) PO SCH (06:00)
[2019-09-07 06:31] LABS: BASO % 0.6 % (0-2.0); EOS % 1.9 % (0-4.5); HEMATOCRIT 25.6 % (35.4-49); LYMPH % 8.1 % (8-40); MCH 28.7 pg (25.7-33.7); MCHC 31.4 g/dl (32.0-35.9); MEAN CELL VOLUME 91.4 fl (80-96); MEAN PLT VOLUME 9.2 fl (7.5-11.1); MONO % 9.3 % (3.8-10.2); NEUT % 80.1 % (42.8-82.8); PLATELET COUNT 258 K/MM3 (134-434); RBC 2.81 M/mm3 (4.00-5.60); WHITE BLOOD COUNT 12.5 K/mm3 (4.0-10.0)
[2019-09-07 07:09] LABS: ALBUMIN 1.7 g/dl (3.4-5.0); BILIRUBIN,TOTAL 0.3 mg/dL (0.2-1); BLOOD UREA NITROGEN 36.6 mg/dL (7-18); CREATININE 0.6 mg/dL (0.55-1.3); MAGNESIUM 2.4 mg/dL (1.8-2.4); PHOSPHOROUS 4.3 mg/dL (2.5-4.9); POTASSIUM 4.3 mmol/L (3.5-5.1); TOT PROT 5.9 g/dl (6.4-8.2)
[2019-09-07 08:04] LABS: URINE APPEARANCE CLEAR; URINE BILIRUBIN NEGATIVE (NEGATIVE); URINE COLOR YELLOW; URINE GLUCOSE (UA) NEGATIVE (NEGATIVE); URINE KETONE NEGATIVE (NEGATIVE); URINE LEUK ESTERASE NEGATIVE (NEGATIVE); URINE NITRITE NEGATIVE (NEGATIVE); URINE PROTEIN NEGATIVE (NEGATIVE)
[2019-09-07] MEDS ORDERED: VANCOMYCIN HCL 1,500 MG in DEXTROSE 5%-WATER - 500 ML IVPB SCH (09:00)
--- NOTE | 2019-09-07 09:36 | PN ---
Progress Note, Physician - Current Medication List Current Medications: Active Medications Albuterol/Ipratropium (Duoneb -) 1 amp NEB RQ4H [facility] Last Admin: 09/07/19 05:22 Dose: 1 amp Amiodarone HCl (Cordarone -) 200 mg PO DAILY [facility] Apixaban (Eliquis -) 5 mg PO BID [facility] Atorvastatin Calcium (Lipitor -) 80 mg PO HS [facility] Chlorhexidine Gluconate (Hibiclens For Decolonization -) 1 applic TP HS [facility] Lactated Ringer's (Lactated Ringers Solution) 1,000 ml in 1,000 mls @ 60 mls/ hr IV ASDIR [facility] Last Admin: 09/06/19 23:24 Dose: 60 mls/hr Piperacillin Sod/Tazobactam (Sod 4.5 gm/ Dextrose) 100 mls @ 200 mls/hr IVPB Q8H-IV [facility]; Protocol Piperacillin Sod/Tazobactam (Sod 4.5 gm/ Dextrose) 100 mls @ 200 mls/hr IVPB Q8H-IV [facility]; Protocol Stop: 09/07/19 18:29 Last Admin: 09/07/19 02:30 Dose: 200 mls/hr Vancomycin HCl 1,500 mg/ (Dextrose) 250 mls @ 125 mls/hr IVPB Q12H [facility]; Protocol Vancomycin HCl 1,500 mg/ (Dextrose) 500 mls @ 250 mls/hr IVPB Q12H [facility] Stop: 09/07/19 22:59 Insulin Aspart (Novolog Vial Sliding Scale -) 1 vial SQ ACHS [facility]; Protocol Last Admin: 09/07/19 06:00 Dose: 4 units Levothyroxine Sodium (Synthroid -) 50 mcg PO ACBK [facility] Last Admin: 09/07/19 06:00 Dose: Not Given Metoprolol Tartrate (Lopressor -) 25 mg PO DAILY [facility] Mupirocin (Bactroban Ointment (For Decolonization) -) 1 applic NS BID [facility] Stop: 09/12/19 21:59 - Objective Vital Signs: Vital Signs Temperature 99.8 F H 09/07/19 02:00 Pulse Rate 118 H 09/07/19 07:44 Respiratory Rate 30 H 09/07/19 07:44 Blood Pressure 130/75 09/07/19 07:44 O2 Sat by Pulse Oximetry (%) 100 09/07/19 06:48 Cardiovascular: Yes: S1, S2 Respiratory: Yes: Mechanically Ventilated Gastrointestinal: Yes: Normal Bowel Sounds, Soft Labs: CBC, BMP 09/07/19 05:35 09/07/19 05:35 INR, PTT INR 1.74 (0.83-1.09) H 09/06/19 17:00 Problem List - Problems (1) Paroxysmal A-fib Assessment/Plan: - stable Continue icu monitoring Continue Alba FATIMA Code(s): I48.0 - PAROXYSMAL ATRIAL FIBRILLATION (2) Sepsis Assessment/Plan: Likely due to Pneumonia Microbiology 09/07/19 05:30 Urine For Antigen Detection Legionella Antigen - Preliminary 09/07/19 05:30 Urine For Antigen Detection Streptococcus pneumoniae Antigen (M - Preliminary Zosyn and Vancomycin Appreciate ID consult Monitor CBC, BMP Code(s): A41.9 - SEPSIS, UNSPECIFIED ORGANISM Qualifiers: Sepsis type: sepsis due to unspecified organism Sepsis acute organ dysfunction status: unspecified Qualified Code(s): A41.9 - Sepsis, unspecified organism (3) Pneumonia Assessment/Plan: Microbiology 09/06/19 17:00 Blood - Peripheral Venous Blood Culture - Preliminary NO GROWTH OBTAINED AFTER 24 HOURS, INCUBATION TO CONTINUE FOR 4 DAYS. 09/06/19 17:15 Blood - Peripheral Venous Blood Culture - Preliminary NO GROWTH OBTAINED AFTER 24 HOURS, INCUBATION TO CONTINUE FOR 4 DAYS. 09/07/19 05:30 Sputum - Endotrachea Suction/Ventilator Gram Stain - Final 09/07/19 05:30 Urine For Antigen Detection Legionella Antigen - Preliminary 09/07/19 05:30 Urine For Antigen Detection Streptococcus pneumoniae Antigen (M - Preliminary Zosyn, Vancomycin given in ED, will continue Appreciate ID consult Monitor CBC, BMP O2- trach-vent Monitor vent settings Duonebs Code(s): J18.9 - PNEUMONIA, UNSPECIFIED ORGANISM Qualifiers: Pneumonia type: due to unspecified organism Laterality: bilateral Lung location: lower lobe of lung Qualified Code(s): J18.9 - Pneumonia, unspecified organism (4) Chronic respiratory failure with hypoxia and hypercapnia Assessment/Plan: s/p Trach- vent dependent Appreciate Pulm consult Monitor Spo2 Duonebs Code(s): J96.11 - CHRONIC RESPIRATORY FAILURE WITH HYPOXIA; J96.12 - CHRONIC RESPIRATORY FAILURE WITH HYPERCAPNIA
[2019-09-07] MEDS ORDERED: VANCOMYCIN HCL 1,500 MG in DEXTROSE 5%-WATER - 250 ML IVPB SCH (10:00)
[2019-09-07] MEDS: APIXABAN 5 MG TABLET PO SCH ×2 (10:02→22:10)
[2019-09-07] MEDS: AMIODARONE HCL 200 MG TABLET PO SCH (10:02)
[2019-09-07] MEDS: METOPROLOL TARTRATE 25 MG TABLET (FP) PO SCH (10:02)
--- NOTE | 2019-09-07 10:08 | EKG ---
Test Reason : Blood Pressure : / mmHG Vent. Rate : 100 BPM Atrial Rate : 100 BPM P-R Int : 136 ms QRS Dur : 078 ms QT Int : 318 ms P-R-T Axes : 000 025 -74 degrees QTc Int : 410 ms SINUS RHYTHM WITH OCCASIONAL PREMATURE VENTRICULAR COMPLEXES AND PREMATURE ATRIAL COMPLEXES NONSPECIFIC ST AND T WAVE ABNORMALITY ABNORMAL ECG WHEN COMPARED WITH ECG OF 06-JUL-2015 17:07, PREMATURE VENTRICULAR COMPLEXES ARE NOW PRESENT Confirmed by LAUREN GRUBBS, DICK ([id number]) on 09/07/2019 10:07:47 AM Referred By: Confirmed By:DICK AGUILAR MD
--- NOTE | 2019-09-07 11:59 | PN ---
Progress Note (short form) - Note Progress Note: ID CONSULT DICTATED PNEUMONIA R/O SEPSIS SECONDARY TO PNEUMONIA CHRONIC RESP FAILURE LEUKOCYTOSIS ANEMIA HX MRSA AWAIT CULTURES EMPIRIC ZOSYN/ ZITHROMAX RESP SUPPORT CRITICAL CARE TIME 35MIN
[2019-09-07] MEDS: AZITHROMYCIN IVPB 500 MG/250 ML BAG IVPB SCH (12:37)
[2019-09-07] MEDS: SODIUM CHLORIDE 0.45% 1,000 ML IV SCH (12:38)
--- NOTE | 2019-09-07 12:50 | CONSULT ---
Admitting History and Physical - Primary Care Physician PCP: Cheryl Joseph - Admission History of Present Illness: Per emr- 79 y/o man from [facility] with a PMHx of Chronic Respiratory Failure s/p Trach, COPD, Chronic Anemia (blood transfusions), pAfib, HTN, HLD, DM, GERD, Nephrolithasis, Squamous Ca (Back,2016) who presents to the ED for abnormal lab value- hemoglobin of 6 and right lower lobe infiltrate at [facility]. PNEUMONIA R/O SEPSIS SECONDARY TO PNEUMONIA CHRONIC RESP FAILURE LEUKOCYTOSIS ANEMIA HX MRSA AWAIT CULTURES EMPIRIC ZOSYN/ ZITHROMAX RESP SUPPORT CRITICAL CARE TIME 35MIN Pt has had recurrent PNA, at [facility], [facility] and now at [facility]. Pt has been on GT feedings, will trial of PO at [facility] and at [facility] by speech pathology only. Pt was on PMV at [facility] when they were visiting. History Source: Patient (verbal confused, periods of delerium reported by family ), Family Member Limitations to Obtaining History: Clinical Condition (vent, speaking around the cuff of trach tube) - Past Medical History Cardiovascular: Yes: AFIB, HTN, Hyperlipdemia Pulmonary: Yes: COPD, O2 Dependent (trach-vent) Gastrointestinal: Yes: GERD Renal/: Yes: Renal Calculi Heme/Onc: Yes: Anemia Infectious Disease: Yes: MRSA (sputum) Endocrine: Yes: Diabetes Mellitus, Hypothyroidism Dermatology: Yes: Squamous Cell (lumbar) - Past Surgical History Additional Past Surgical History: Tracheotomy G-Tube R-Ankle - Smoking History Smoking history: Former smoker Have you smoked in the past 12 months: No If you are a former smoker, when did you quit?: 45 years ago - Alcohol/Substance Use Hx Alcohol Use: No History of Substance Use: reports: None - Social History ADL: Support Services History of Recent Travel: No History - Admission Reason For Visit: PNEUMONIA, SEPSIS - Diagnostics X-ray: Report Reviewed - General Mental Status: Awake and Alert, Able to Follow Commands, Forgetful, Vague, Intermittently Confused Attention: Distractible, Mild Impairment Ability to Follow Directions: Fair Head/Neck Control: Good - Hearing Hearing: Functional Speech Evaluation - Communication Primary Language: VIET[place]ESE Communication: Yes: Simple Responses - Speech Production Intelligibility: Yes: WNL (when able to speak over cuff) - Speech Characteristics Voice Loudness: Normal Voice Pitch: Yes: Normal Voice Phonatory-based Quality: Yes: Normal Nasal Resonance: Normal Articulation: Yes: Precise - Language/Auditory Comprehension Follows: Yes: 1 Stage Simple Commands - Swallow Evaluation/Bedside Assessment Current Nutritional Intake: NPO Oral Secretions: Yes: Copious Secretions (reported) Tracheostomy Present: Yes Patient on Ventilator: Yes Facial Symmetry at Rest: Symmetrical Facial Symmetry on Retraction: Symmetrical Facial Movement: Controlled Against Resistance Opening: Normal Against Resistance Closing: Normal Pucker Lips: Normal Smile: Normal Lingual Movement: Normal Lingual Speed of Movement: Normal Lingual Movement Strgth Against Opposition: Normal Lingual Movement Characteristics: Normal Velopharyngeal Movement: Normal Laryngeal Movement: Able to Palpate Recommendations - Speech Evaluation, Impression/Plan Impression: Ventilator dependent pt with recurrent PNA. Recent use of PMV at [facility] and PO trials by Speech Pathology, per family report. Pt speaking over the trach cuff-Insufficiently inflated or not functioning? - Disposition Discharge to: [facility] Facility - Dysphagia Impressions/Plan Dysphagia Impressions: Ongoing Evaluation, Suspect Aspiration *Silent aspiration: cannot be R/O at bedside Recommendations: Modified Barium Swallow, Passy Castaner Valve, Other (GT feedings per RD) - Recommendations Diet Consistency: NPO Liquids: NPO
--- NOTE | 2019-09-07 13:12 | PN ---
Teaching Attending Note Name of Resident: Wade Larios ATTENDING PHYSICIAN STATEMENT I saw and evaluated the patient. I reviewed the resident's note and discussed the case with the resident. I agree with the resident's findings and plan as documented. SUBJECTIVE: Pt seen and examined in the ICU. Vented, awake. Fever curve trending down. + thick secretions upon suctioning. OBJECTIVE: Vital Signs Period Temp Pulse Resp BP Sys/Wynne Pulse Ox Last 24 Hr 98 F-100.4 F 94-119 16-31 116-162/59-93 98-100 Intake & Output 09/04/19 09/05/19 09/06/19 09/07/19 23:59 23:59 23:59 23:59 Intake Total 700 Output Total 600 Balance 100 Weight 86.137 kg 83.325 kg Gen: vented, awake Heart: RRR Lung: bilateral rhonchi Abd: soft, nontender Ext: no edema CBC, BMP 09/07/19 05:35 09/07/19 05:35 Active Medications Albuterol/Ipratropium (Duoneb -) 1 amp NEB RQID [facility] Amiodarone HCl (Cordarone -) 200 mg PO DAILY [facility] Last Admin: 09/07/19 10:02 Dose: 200 mg Apixaban (Eliquis -) 5 mg PO BID [facility] Last Admin: 09/07/19 10:02 Dose: 5 mg Atorvastatin Calcium (Lipitor -) 80 mg PO HS [facility] Chlorhexidine Gluconate (Hibiclens For Decolonization -) 1 applic TP HS [facility] Sodium Chloride (1/2 Normal Saline) 1,000 mls @ 75 mls/hr IV ASDIR [facility] Last Admin: 09/07/19 12:38 Dose: 75 mls/hr Piperacillin Sod/Tazobactam (Sod 3.375 gm/ Dextrose) 50 mls @ 100 mls/hr IVPB Q8H-IV [facility]; Protocol Azithromycin (Zithromax 500mg Ivpb (Pre-Docked)) 500 mg in 250 mls @ 250 mls/ hr IVPB DAILY [facility] Last Admin: 09/07/19 12:37 Dose: 250 mls/hr Insulin Aspart (Novolog Vial Sliding Scale -) 1 vial SQ ACHS [facility]; Protocol Last Admin: 09/07/19 12:38 Dose: 4 units Levothyroxine Sodium (Synthroid -) 50 mcg PO ACBK [facility] Last Admin: 09/07/19 06:00 Dose: Not Given Metoprolol Tartrate (Lopressor -) 25 mg PO DAILY [facility] Last Admin: 09/07/19 10:02 Dose: 25 mg Mupirocin (Bactroban Ointment (For Decolonization) -) 1 applic NS BID [facility] Stop: 09/12/19 21:59 ASSESSMENT AND PLAN: Chronic Respiratory Failure Pneumonia Sepsis COPD Atrial Fibrillation CAD HTN DM Hypothyroidism Diverticulosis Anemia - continue antibiotics per ID - f/u cultures - inhaled bronchodilators - O2 to keep SpO2 >90% - IVF - monitor lytes - rate controlled - continue anticoagulation - spontaneous breathing trials when stable - enteral feeds - DVT/GI prophylaxis - can monitor on vent floor
--- NOTE | 2019-09-07 14:04 | CONS ---
INFECTIOUS DISEASE CONSULTATION DATE OF CONSULTATION: 09/07/2019 HISTORY: Patient is a 79-year-old male with a history of chronic respiratory failure status post tracheostomy, recent LTAC admission transferred from a detention facility for evaluation of anemia. According to the notes, the patient was noted at the facility to have a hemoglobin of 6. In addition, he has had a worsening cough over the past several days as well as fever and elevated white blood cell count to 22.9. He had been treated with Ceftin at the halfway for a right lower lobe pneumonia. He was evaluated in the emergency room where his temperature was 100.4, white blood cell count 15,000. Chest x-ray shows bibasilar infiltrates. Cultures were obtained. He was empirically treated with vancomycin and Zosyn. He is awake and alert. He has no complaints at the present time. When questioned, he denied chest pain, shortness of breath. No complaints of abdominal pain. No reported rigors. PAST MEDICAL HISTORY: Positive for respiratory failure status post tracheostomy. Patient reports he had a cholecystectomy complicated by respiratory failure subsequently required tracheostomy and feeding gastrostomy. Past medical history also includes COPD, atrial fibrillation, insulin-dependent diabetes mellitus, hypertension, gastroesophageal reflux, hypothyroidism, chronic anemia, nephrolithiasis, coronary artery disease, basal cell carcinoma. PAST SURGICAL HISTORY: Status post tracheostomy, feeding gastrostomy, and coronary artery stents. ALLERGIES: HEPARIN. MEDICATIONS: Albuterol, amiodarone, Eliquis, Lipitor, Synthroid, metoprolol, vancomycin, Zosyn. SOCIAL HISTORY: Resides in a detention facility. Former smoker. 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 SYSTEMS REVIEW: Neurologic: No loss of consciousness, seizure activity, focal weakness. Cardiac: Positive for atrial fibrillation. Respiratory: As per HPI. Gastrointestinal: Status post feeding gastrostomy. Genitourinary: Negative for urinary tract infection. LABORATORY DATA: White count on admission 14.9, presently 12.5, hematocrit 25.6, platelets 258. Sodium 149, creatinine 0.6, lactic acid 1.3, total bilirubin 0.3, alkaline phosphatase 130, AST 55, ALT 79. Urinalysis negative. Flu swab negative. PHYSICAL EXAMINATION: General: He is awake and alert in no acute distress. Breathing nonlabored on tracheostomy collar. Vital Signs: Temperature 99.8, maximum temperature 100.4, blood pressure 130/75, pulse 118 irregular, respirations 22 per minute. HEENT: Sclerae anicteric. Tracheostomy in place. Heart: S1, S2. Irregular. Lungs: Air entry bilaterally. Abdomen: Soft. Nontender. Feeding gastrostomy tube is in place. No evidence of infection. Extremities: 1+ edema. Stage 3 sacral decubitus. IMPRESSION: 1. Bibasilar pneumonia. 2. Rule out sepsis secondary to pneumonia. 3. Chronic renal failure. 4. Leukocytosis. 5. Anemia. PLAN: Would empirically cover for nosocomial respiratory treatment pathogens with Zosyn. Add Zithromax for coverage of atypical pathogens. Continue respiratory support. Prognosis is guarded. Critical care time spent, 35 minutes. Thank you for the kind referral. DORA DUARTE M.D. [id number]
--- NOTE | 2019-09-07 14:35 | PN ---
Physical Exam: SUBJECTIVE: Patient seen and examined in the morning. Patient was admitted to ICU overnight, no events on cardiac monitoring overnight. Patient has no complaints of chest pain, shortness of breath, abdominal pain, nausea, vomiting, diarrhea. OBJECTIVE: Vital Signs Period Temp Pulse Resp BP Sys/Wynne Pulse Ox Last 24 Hr 98 F-100.4 F 94-119 16-31 116-162/59-93 98-100 GENERAL: Alert and oriented x3. Not in acute distress. HEENT: Trached to vent. LUNGS: Diffuse crackles HEART: normal rate and rhythm, s1 s2 present, no murmurs rubs or gallops ABDOMEN: Soft, nontender, not distended, normoactive bowel sounds, no guarding, no rebound, no masses. No hepatomegaly or splenomegaly. EXTREMITIES: Peripheral pulses present, 2+. Non edematous. NEUROLOGICAL: Cranial nerves II-XII intact. PSYCHIATRIC: Cooperative. Good eye contact. Appropriate mood and affect. Laboratory Results - last 24 hr 09/06/19 09/06/19 09/06/19 17:00 17:00 17:00 WBC 14.9 H RBC 2.89 L Hgb 8.3 L Hct 26.7 L D MCV 92.4 MCH 28.6 MCHC 30.9 L RDW 19.5 H Plt Count 304 MPV 9.3 Absolute Neuts (auto) 12.0 H Neutrophils % 80.5 D Lymphocytes % 7.5 L D Monocytes % 9.8 Eosinophils % 1.9 Basophils % 0.3 Nucleated RBC % 0 PT with INR 20.60 H INR 1.74 H PTT (Actin FS) 43.5 H VBG pH POC VBG pCO2 POC VBG pO2 VBG HCO3 VBG O2 Sat (Gayle) VBG Base Excess Sodium Potassium Chloride Carbon Dioxide Anion Gap BUN Creatinine Est GFR (CKD-EPI)AfAm Est GFR (CKD-EPI)NonAf POC Glucometer Random Glucose Lactic Acid Calcium Phosphorus Magnesium Total Bilirubin AST ALT Alkaline Phosphatase Troponin I < 0.02 Total Protein Albumin TSH Urine Color Urine Appearance Urine pH Ur Specific Guffey Urine Protein Urine Glucose (UA) Urine Ketones Urine Blood Urine Nitrite Urine Bilirubin Urine Urobilinogen Ur Leukocyte Esterase Influenza A (Rapid) Influenza B (Rapid) Blood Type Antibody Screen 09/06/19 09/06/19 09/06/19 17:00 17:00 17:00 WBC RBC Hgb Hct MCV MCH MCHC RDW Plt Count MPV Absolute Neuts (auto) Neutrophils % Lymphocytes % Monocytes % Eosinophils % Basophils % Nucleated RBC % PT with INR INR PTT (Actin FS) VBG pH 7.34 POC VBG pCO2 62.9 H POC VBG pO2 < 49 H VBG HCO3 32.7 H VBG O2 Sat (Gayle) 50.6 L VBG Base Excess 6.3 H Sodium 150 H Potassium 4.3 Chloride 113 H Carbon Dioxide 33 H Anion Gap 5 L BUN 47.4 H Creatinine 0.7 Est GFR (CKD-EPI)AfAm 104.03 Est GFR (CKD-EPI)NonAf 89.76 POC Glucometer Random Glucose 218 H Lactic Acid Calcium 8.5 Phosphorus Magnesium Total Bilirubin 0.3 AST 79 H ALT 96 H Alkaline Phosphatase 159 H Troponin I Total Protein 6.9 Albumin 2.0 L TSH Urine Color Urine Appearance Urine pH Ur Specific Guffey Urine Protein Urine Glucose (UA) Urine Ketones Urine Blood Urine Nitrite Urine Bilirubin Urine Urobilinogen Ur Leukocyte Esterase Influenza A (Rapid) Influenza B (Rapid) Blood Type A NEGATIVE Antibody Screen Negative 09/06/19 09/06/19 09/06/19 17:15 18:50 19:05 WBC RBC Hgb Hct MCV MCH MCHC RDW Plt Count MPV Absolute Neuts (auto) Neutrophils % Lymphocytes % Monocytes % Eosinophils % Basophils % Nucleated RBC % PT with INR INR PTT (Actin FS) VBG pH POC VBG pCO2 POC VBG pO2 VBG HCO3 VBG O2 Sat (Gayle) VBG Base Excess Sodium Potassium Chloride Carbon Dioxide Anion Gap BUN Creatinine Est GFR (CKD-EPI)AfAm Est GFR (CKD-EPI)NonAf POC Glucometer Random Glucose Lactic Acid 1.3 Calcium Phosphorus Magnesium Total Bilirubin AST ALT Alkaline Phosphatase Troponin I Total Protein Albumin TSH Urine Color Urine Appearance Urine pH Ur Specific Guffey Urine Protein Urine Glucose (UA) Urine Ketones Urine Blood Urine Nitrite Urine Bilirubin Urine Urobilinogen Ur Leukocyte Esterase Influenza A (Rapid) Negative Influenza B (Rapid) Negative Blood Type Cancelled Antibody Screen Cancelled 09/06/19 09/07/19 09/07/19 22:36 05:35 05:35 WBC 12.5 H RBC 2.81 L Hgb 8.0 L Hct 25.6 L MCV 91.4 MCH 28.7 MCHC 31.4 L RDW 19.0 H Plt Count 258 MPV 9.2 Absolute Neuts (auto) 10.0 H Neutrophils % 80.1 Lymphocytes % 8.1 Monocytes % 9.3 Eosinophils % 1.9 Basophils % 0.6 Nucleated RBC % 0 PT with INR INR PTT (Actin FS) VBG pH POC VBG pCO2 POC VBG pO2 VBG HCO3 VBG O2 Sat (Gayle) VBG Base Excess Sodium 149 H Potassium 4.3 Chloride 113 H Carbon Dioxide 30 Anion Gap 6 L BUN 36.6 H Creatinine 0.6 Est GFR (CKD-EPI)AfAm 110.83 Est GFR (CKD-EPI)NonAf 95.63 POC Glucometer 289 Random Glucose 247 H Lactic Acid Calcium 8.0 L Phosphorus 4.3 Magnesium 2.4 Total Bilirubin 0.3 AST 55 H ALT 79 H Alkaline Phosphatase 130 H Troponin I Total Protein 5.9 L Albumin 1.7 L TSH 2.01 Urine Color Urine Appearance Urine pH Ur Specific Guffey Urine Protein Urine Glucose (UA) Urine Ketones Urine Blood Urine Nitrite Urine Bilirubin Urine Urobilinogen Ur Leukocyte Esterase Influenza A (Rapid) Influenza B (Rapid) Blood Type Antibody Screen 09/07/19 09/07/19 09/07/19 05:39 06:30 12:21 WBC RBC Hgb Hct MCV MCH MCHC RDW Plt Count MPV Absolute Neuts (auto) Neutrophils % Lymphocytes % Monocytes % Eosinophils % Basophils % Nucleated RBC % PT with INR INR PTT (Actin FS) VBG pH POC VBG pCO2 POC VBG pO2 VBG HCO3 VBG O2 Sat (Gayle) VBG Base Excess Sodium Potassium Chloride Carbon Dioxide Anion Gap BUN Creatinine Est GFR (CKD-EPI)AfAm Est GFR (CKD-EPI)NonAf POC Glucometer 240 268 Random Glucose Lactic Acid Calcium Phosphorus Magnesium Total Bilirubin AST ALT Alkaline Phosphatase Troponin I Total Protein Albumin TSH Urine Color Yellow Urine Appearance Clear Urine pH 7.0 D Ur Specific Guffey 1.023 Urine Protein Negative Urine Glucose (UA) Negative Urine Ketones Negative Urine Blood Negative Urine Nitrite Negative Urine Bilirubin Negative Urine Urobilinogen 1.0 Ur Leukocyte Esterase Negative Influenza A (Rapid) Influenza B (Rapid) Blood Type Antibody Screen Active Medications Generic Name Dose Route Start Last Admin Trade Name Freq PRN Reason Stop Dose Admin Albuterol/Ipratropium 1 amp 09/07/19 16:00 Duoneb - NEB RQID [facility] Amiodarone HCl 200 mg 09/07/19 10:00 09/07/19 10:02 Cordarone - PO 200 mg DAILY [facility] Administration Apixaban 5 mg 09/07/19 10:00 09/07/19 10:02 Eliquis - PO 5 mg BID [facility] Administration Atorvastatin Calcium 80 mg 09/07/19 22:00 Lipitor - PO HS [facility] Chlorhexidine Gluconate 1 applic 09/07/19 22:00 Hibiclens For Decolonization - TP HS [facility] Sodium Chloride 1,000 mls @ 75 mls/hr 09/07/19 11:45 09/07/19 12:38 1/2 Normal Saline IV 75 mls/hr ASDIR [facility] Administration Piperacillin Sod/Tazobactam 50 mls @ 100 mls/hr 09/07/19 18:00 Sod 3.375 gm/ Dextrose IVPB Q8H-IV [facility] Protocol Azithromycin 500 mg in 250 mls @ 250 mls/hr 09/07/19 12:15 09/07/19 12:37 Zithromax 500mg Ivpb (Pre-Docked) IVPB 250 mls/hr DAILY [facility] Administration Insulin Aspart 1 vial 09/06/19 22:00 09/07/19 12:38 Novolog Vial Sliding Scale - SQ 4 units ACHS [facility] Administration Protocol Levothyroxine Sodium 50 mcg 09/07/19 07:00 09/07/19 06:00 Synthroid - PO Not Given ACBK [facility] Metoprolol Tartrate 25 mg 09/07/19 10:00 09/07/19 10:02 Lopressor - PO 25 mg DAILY [facility] Administration Mupirocin 1 applic 09/07/19 22:00 Bactroban Ointment (For Decolonization) - NS 09/12/19 21:59 BID [facility] ASSESSMENT/PLAN: 79 M PMH Afib (Eliquis 5mg BID), cardiac stent placements, COPD, DM, HTN, GERD, Diverticulosis, gout, chronic anemia, bladder &renal stones, hypothyroidism, multiple basal cell carcinomas (s/p excision) presenting with pneumonia. Neuro - noted that patient was Altered the past few days at CT. -Patient is AOx3 today Cardiovascular -Hx of A-fib. Continuing Eliquis -EKG NSR, PVCs, PAC rate 100 bpm, QTc 410 no signs of ischemia -Continue metoprolol 25mg, amiodarone 200 mg, lipitor -Continue telemetry monitoring Pulmonary -Hx of Afib on Eliquis -Patient has history of LLL infiltrate -Patient has new infiltrate in right lung -Continue duonebs QID -Vent: 400, RR 16, PEEP 5 ID -Continue Vanc/zoysn -Continue fluids GI -Follow up Abdomen U/S -Restart feeds -Glucerna 1.5 PEG Renal -Continue /2 NS @ 75ml/hr Endo -Hx of hypothyroid and DM -Synthroid -ISS F: 1/2 NS @ 75 ml/hr E: Monitor CMP N: Restart tube feeds Dispo: Transfer to Med/Surg Visit type - Emergency Visit Emergency Visit: Yes ED Registration Date: 09/06/19 Care time: The patient presented to the Emergency Department on the above date and was hospitalized for further evaluation of their emergent condition. - New Patient This patient is new to me today: Yes Date on this admission: 09/07/19 - Critical Care Critical Care patient: Yes Total Critical Care Time (in minutes): 45 Critical Care Statement: The care of this patient involved high complexity decision making to prevent further life threatening deterioration of the patient's condition and/or to evaluate & treat vital organ system(s) failure or risk of failure. ATTENDING PHYSICIAN STATEMENT I saw and evaluated the patient. I reviewed the resident's note and discussed the case with the resident. I agree with the resident's findings and plan as documented. SUBJECTIVE: OBJECTIVE: ASSESSMENT AND PLAN:
--- NOTE | 2019-09-07 14:38 | CONSULT ---
Passy-[place] Valve Eval - Assessment Prior to PMV Placement Patient and/or family educated re PMV: Yes Mental Status: Awake, Alert, Attempting to Communicate O2 Sat by Pulse Oximetry (%): 100 Secretions: Moderate Amount Patient on Ventilator: Yes Patient on Trach Collar: No Suctioned: Yes Cuff Status: Inflated (but voice audible over inflated cuff.) Passy-[place] Valve in Place - Speech Characteristics Able to Phonate with PMV in place: Yes Voice Loudness: Normal Voice Pitch: Normal Voice Phonatory-based Quality: Normal Speech Pattern: Normal Speech Clarity: < 100% Nasal Resonance: Normal Articulation: Precise Rate of Speech: Intact - Assessment with PMV in Place O2 Sat by Pulse Oximetry (%): 100 Change in Mental Status with PMV in Place: No Able to Manage Secretions: Yes Length of time with PMV in place: 20 min - Recommendations Recommendations: PMV as tolerated, Remove PMV while sleeping, Monitor Pulse Ox PMV on, Supervision while PMV on, Other (Increase time on PMV, as tolerated to improve upper airway function and communication, improve swallowing function and expedite weaning from vent. MBS to assess swallowing function.)
[2019-09-07] MEDS ORDERED: DEXTROSE 5%-WATER - 50 ML IVPB ONE (16:45)
[2019-09-07] MEDS ORDERED: PIPERACILLIN/TAZOBACTAM 3.375 GM VIAL IVPB ONE (16:45)
[2019-09-07] MEDS: PIPERACILLIN/TAZOB 3.375 GM 3.375 GM in DEXTROSE 5%-WATER - 50 ML IVPB SCH (17:10)
[2019-09-07] MEDS: MUPIROCIN 2% TOPICAL OINTMENT FOR DECOLONIZATION NS SCH (22:09)
[2019-09-07] MEDS: CHLORHEXIDINE GLUCONATE 4% CLEANSER FOR DECOLONIZATION TP SCH (22:10)
[2019-09-07] MEDS: ATORVASTATIN CA 40 MG TABLET (FP) PO SCH (22:10)
[2019-09-07] MEDS ORDERED: LORazepam 2 MG/ML SDV VIAL IVPUSH ONE (23:19)
[2019-09-08] MEDS: PIPERACILLIN/TAZOB 3.375 GM 3.375 GM in DEXTROSE 5%-WATER - 50 ML IVPB SCH ×3 (02:30→17:28)
[2019-09-08] MEDS ORDERED: PIPERACILLIN/TAZOBACTAM 3.375 GM VIAL IVPB ONE ×3 (04:55→16:22)
[2019-09-08] MEDS ORDERED: DEXTROSE 5%-WATER - 50 ML IVPB ONE ×3 (04:56→16:22)
[2019-09-08] MEDS: SODIUM CHLORIDE 0.45% 1,000 ML IV SCH ×2 (04:58→12:00)
[2019-09-08] MEDS: INSULIN SLIDING SCALE (NOVOLOG) 1 VIAL SQ SCH ×4 (06:04→22:49)
[2019-09-08] MEDS: LEVOTHYROXINE NA 50 MCG TABLET (FP) PO SCH (06:05)
[2019-09-08 06:49] LABS: BASO % 0.6 % (0-2.0); EOS % 5.7 % (0-4.5); HEMATOCRIT 22.8 % (35.4-49); HEMOGLOBIN 7.1 GM/dL (11.7-16.9); LYMPH % 9.1 % (8-40); MCH 28.7 pg (25.7-33.7); MCHC 31.3 g/dl (32.0-35.9); MEAN CELL VOLUME 91.7 fl (80-96); MONO % 7.8 % (3.8-10.2); NEUT % 76.8 % (42.8-82.8); PLATELET COUNT 279 K/MM3 (134-434); RBC 2.49 M/mm3 (4.00-5.60); RDW 18.2 % (11.9-15.9); WHITE BLOOD COUNT 11.3 K/mm3 (4.0-10.0)
[2019-09-08 07:26] LABS: ALBUMIN 1.7 g/dl (3.4-5.0); BILIRUBIN,TOTAL 0.4 mg/dL (0.2-1); BLOOD UREA NITROGEN 28.5 mg/dL (7-18); CALCIUM 8.4 mg/dL (8.5-10.1); CREATININE 0.7 mg/dL (0.55-1.3); MAGNESIUM 2.6 mg/dL (1.8-2.4); PHOSPHOROUS 3.8 mg/dL (2.5-4.9); POTASSIUM 4.7 mmol/L (3.5-5.1); TOT PROT 5.7 g/dl (6.4-8.2)
[2019-09-08] MEDS: ALBUTEROL SO4 2.5/IPRATROPIUM 0.5 INH SOL 3 ML VIAL.NEB. NEB SCH ×4 (07:35→20:58)
--- NOTE | 2019-09-08 08:46 | PN ---
Progress Note, Physician - Current Medication List Current Medications: Active Medications Albuterol/Ipratropium (Duoneb -) 1 amp NEB RQID [facility] Last Admin: 09/08/19 07:35 Dose: 1 amp Amiodarone HCl (Cordarone -) 200 mg PO DAILY [facility] Last Admin: 09/07/19 10:02 Dose: 200 mg Apixaban (Eliquis -) 5 mg PO BID [facility] Last Admin: 09/07/19 22:10 Dose: 5 mg Atorvastatin Calcium (Lipitor -) 80 mg PO HS [facility] Last Admin: 09/07/19 22:10 Dose: 80 mg Chlorhexidine Gluconate (Hibiclens For Decolonization -) 1 applic TP HS [facility] Last Admin: 09/07/19 22:10 Dose: 1 applic Sodium Chloride (1/2 Normal Saline) 1,000 mls @ 75 mls/hr IV ASDIR [facility] Last Admin: 09/08/19 04:58 Dose: 75 mls/hr Piperacillin Sod/Tazobactam (Sod 3.375 gm/ Dextrose) 50 mls @ 100 mls/hr IVPB Q8H-IV [facility]; Protocol Last Admin: 09/08/19 02:30 Dose: 100 mls/hr Azithromycin (Zithromax 500mg Ivpb (Pre-Docked)) 500 mg in 250 mls @ 250 mls/ hr IVPB DAILY [facility] Last Admin: 09/07/19 12:37 Dose: 250 mls/hr Insulin Aspart (Novolog Vial Sliding Scale -) 1 vial SQ ACHS [facility]; Protocol Last Admin: 09/08/19 06:04 Dose: 2 units Levothyroxine Sodium (Synthroid -) 50 mcg PO ACBK [facility] Last Admin: 09/08/19 06:05 Dose: 50 mcg Metoprolol Tartrate (Lopressor -) 25 mg PO DAILY [facility] Last Admin: 09/07/19 10:02 Dose: 25 mg Mupirocin (Bactroban Ointment (For Decolonization) -) 1 applic NS BID [facility] Stop: 09/12/19 21:59 Last Admin: 09/07/19 22:09 Dose: 1 applic - Objective Vital Signs: Vital Signs Temperature 98.2 F 09/08/19 02:00 Pulse Rate 78 09/08/19 08:25 Respiratory Rate 28 H 09/08/19 08:03 Blood Pressure 109/64 09/08/19 08:03 O2 Sat by Pulse Oximetry (%) 99 09/08/19 08:25 Cardiovascular: Yes: Pulse Irregular, S1, S2 Respiratory: Yes: Mechanically Ventilated, Rhonchi Gastrointestinal: Yes: Normal Bowel Sounds, Soft Labs: CBC, BMP 09/08/19 05:38 09/08/19 05:38 INR, PTT INR 1.74 (0.83-1.09) H 09/06/19 17:00 Problem List - Problems (1) Paroxysmal A-fib Assessment/Plan: - stable Continue icu Continue BB, Eliquis Code(s): I48.0 - PAROXYSMAL ATRIAL FIBRILLATION (2) Sepsis Assessment/Plan: Likely due to Pneumonia Zosyn and Vancomycin Appreciate ID consult Monitor CBC, BMP Microbiology 09/06/19 17:00 Blood - Peripheral Venous Blood Culture - Preliminary NO GROWTH OBTAINED AFTER 24 HOURS, INCUBATION TO CONTINUE FOR 4 DAYS. 09/06/19 17:15 Blood - Peripheral Venous Blood Culture - Preliminary NO GROWTH OBTAINED AFTER 24 HOURS, INCUBATION TO CONTINUE FOR 4 DAYS. 09/07/19 05:30 Sputum - Endotrachea Suction/Ventilator Gram Stain - Final 09/07/19 05:30 Urine For Antigen Detection Legionella Antigen - Preliminary 09/07/19 05:30 Urine For Antigen Detection Streptococcus pneumoniae Antigen (M - Preliminary Code(s): A41.9 - SEPSIS, UNSPECIFIED ORGANISM Qualifiers: Sepsis type: sepsis due to unspecified organism Sepsis acute organ dysfunction status: unspecified Qualified Code(s): A41.9 - Sepsis, unspecified organism (3) Pneumonia Assessment/Plan: Microbiology 09/06/19 17:00 Blood - Peripheral Venous Blood Culture - Preliminary NO GROWTH OBTAINED AFTER 24 HOURS, INCUBATION TO CONTINUE FOR 4 DAYS. 09/06/19 17:15 Blood - Peripheral Venous Blood Culture - Preliminary NO GROWTH OBTAINED AFTER 24 HOURS, INCUBATION TO CONTINUE FOR 4 DAYS. 09/07/19 05:30 Sputum - Endotrachea Suction/Ventilator Gram Stain - Final 09/07/19 05:30 Urine For Antigen Detection Legionella Antigen - Preliminary 09/07/19 05:30 Urine For Antigen Detection Streptococcus pneumoniae Antigen (M - Preliminary Zosyn, Vancomycin given in ED, will continue Appreciate ID consult Monitor CBC, BMP O2- trach-vent Monitor vent settings Duonebs Code(s): J18.9 - PNEUMONIA, UNSPECIFIED ORGANISM Qualifiers: Pneumonia type: due to unspecified organism Laterality: bilateral Lung location: lower lobe of lung Qualified Code(s): J18.9 - Pneumonia, unspecified organism (4) Chronic respiratory failure with hypoxia and hypercapnia Assessment/Plan: s/p Trach- vent dependent Appreciate Pulm consult Monitor Spo2 Duonebs Code(s): J96.11 - CHRONIC RESPIRATORY FAILURE WITH HYPOXIA; J96.12 - CHRONIC RESPIRATORY FAILURE WITH HYPERCAPNIA
[2019-09-08] MEDS: APIXABAN 5 MG TABLET PO SCH ×2 (09:22→22:42)
[2019-09-08] MEDS: MUPIROCIN 2% TOPICAL OINTMENT FOR DECOLONIZATION NS SCH ×2 (09:22→22:42)
[2019-09-08] MEDS: METOPROLOL TARTRATE 25 MG TABLET (FP) PO SCH (09:22)
[2019-09-08] MEDS: AMIODARONE HCL 200 MG TABLET PO SCH (09:23)
[2019-09-08] MEDS: AZITHROMYCIN IVPB 500 MG/250 ML BAG IVPB SCH (09:24)
[2019-09-08] MEDS ORDERED: LIDOCAINE HCL 1%, 10 MG/ML (50 mL VIAL) SQ ONE (12:49)
--- NOTE | 2019-09-08 13:42 | PN ---
Teaching Attending Note Name of Resident: Wade Larios ATTENDING PHYSICIAN STATEMENT I saw and evaluated the patient. I reviewed the resident's note and discussed the case with the resident. I agree with the resident's findings and plan as documented. SUBJECTIVE: Pt seen and examined in the ICU. Vented, awake. Phonating. Heart rates improved. OBJECTIVE: Vital Signs Period Temp Pulse Resp BP Sys/Wynne Pulse Ox Last 24 Hr 98 F-98.7 F 74-88 20-32 103-153/50-72 97-100 Intake & Output 09/05/19 09/06/19 09/07/19 09/08/19 23:59 23:59 23:59 23:59 Intake Total 2070 2414 Output Total 1250 750 Balance 820 1664 Weight 86.137 kg 83.007 kg 84.141 kg Gen: vented, awake Heart: RRR Lung: decreased breath sounds at the bases Abd: soft, nontender Ext: + edema CBC, BMP 09/08/19 05:38 09/08/19 05:38 Active Medications Albuterol/Ipratropium (Duoneb -) 1 amp NEB RQID [facility] Last Admin: 09/08/19 11:40 Dose: 1 amp Amiodarone HCl (Cordarone -) 200 mg PO DAILY [facility] Last Admin: 09/08/19 09:23 Dose: 200 mg Apixaban (Eliquis -) 5 mg PO BID [facility] Last Admin: 09/08/19 09:22 Dose: 5 mg Atorvastatin Calcium (Lipitor -) 80 mg PO [facility] Last Admin: 09/07/19 22:10 Dose: 80 mg Chlorhexidine Gluconate (Hibiclens For Decolonization -) 1 applic TP HS [facility] Last Admin: 09/07/19 22:10 Dose: 1 applic Sodium Chloride (1/2 Normal Saline) 1,000 mls @ 75 mls/hr IV ASDIR [facility] Last Admin: 09/08/19 12:00 Dose: 75 mls/hr Piperacillin Sod/Tazobactam (Sod 3.375 gm/ Dextrose) 50 mls @ 100 mls/hr IVPB Q8H-IV [facility]; Protocol Last Admin: 09/08/19 09:21 Dose: 100 mls/hr Azithromycin (Zithromax 500mg Ivpb (Pre-Docked)) 500 mg in 250 mls @ 250 mls/ hr IVPB DAILY [facility] Last Admin: 09/08/19 09:24 Dose: 250 mls/hr Insulin Aspart (Novolog Vial Sliding Scale -) 1 vial SQ ACHS [facility]; Protocol Last Admin: 09/08/19 13:02 Dose: 8 units Levothyroxine Sodium (Synthroid -) 50 mcg PO ACBK [facility] Last Admin: 09/08/19 06:05 Dose: 50 mcg Metoprolol Tartrate (Lopressor -) 25 mg PO DAILY [facility] Last Admin: 09/08/19 09:22 Dose: 25 mg Mupirocin (Bactroban Ointment (For Decolonization) -) 1 applic NS BID [facility] Stop: 09/12/19 21:59 Last Admin: 09/08/19 09:22 Dose: 1 applic ASSESSMENT AND PLAN: Chronic Respiratory Failure Pneumonia Sepsis COPD Atrial Fibrillation CAD HTN DM Hypothyroidism Diverticulosis Anemia - continue antibiotics per ID - f/u cultures - inhaled bronchodilators - O2 to keep SpO2 >90% - IVF - monitor lytes - rate controlled - continue anticoagulation - spontaneous breathing trials when stable - enteral feeds - DVT/GI prophylaxis - can monitor on vent floor
--- NOTE | 2019-09-08 13:44 | PN ---
Progress Note, LINING [employer]PER - Note Progress Note: Speaking over cuff with possible leak? PMV performed with good tolerance. Pt oriented and appropriate during my session. Said to have been more confused this am. Voice fairly strong, at times dysphonic with need for deeper inhalation and more forceful phonation. Counting exercises performed with improved voicing Suggest daily use of PMV, as tolerated, increasing time on valve to increase upper airway function, voicing,communication, socialization, swallowing and to expedite weaning MBS
--- NOTE | 2019-09-08 18:25 | PN ---
Physical Exam: SUBJECTIVE: Patient seen and examined in the morning. Patient had no acute events overnight, no acute events on cardiac monitoring. Patient's trach cuff is likely leaking, patient is talking without passy adalgisa device. No complaints of chest pain, SOB, abd pain, nausea, vomiting, diarrhea. OBJECTIVE: Vital Signs Period Temp Pulse Resp BP Sys/Wynne Pulse Ox Last 24 Hr 98.2 F-98.7 F 74-87 20-32 103-153/50-72 97-99 GENERAL: Alert and oriented x3. Not in acute distress. HEENT: Trached to vent. LUNGS: Diffuse crackles HEART: normal rate and rhythm, s1 s2 present, no murmurs rubs or gallops ABDOMEN: Soft, nontender, not distended, normoactive bowel sounds, no guarding, no rebound, no masses. No hepatomegaly or splenomegaly. EXTREMITIES: Peripheral pulses present, 2+. Non edematous. NEUROLOGICAL: Cranial nerves II-XII intact. PSYCHIATRIC: Cooperative. Good eye contact. Appropriate mood and affect. Laboratory Results - last 24 hr 09/07/19 09/08/19 09/08/19 22:12 05:38 05:38 WBC 11.3 H RBC 2.49 L Hgb 7.1 L Hct 22.8 L MCV 91.7 MCH 28.7 MCHC 31.3 L RDW 18.2 H Plt Count 279 MPV 9.0 Absolute Neuts (auto) 8.7 H Neutrophils % 76.8 Lymphocytes % 9.1 Monocytes % 7.8 Eosinophils % 5.7 H D Basophils % 0.6 Nucleated RBC % 0 Sodium 146 H Potassium 4.7 Chloride 110 H Carbon Dioxide 33 H Anion Gap 2 L BUN 28.5 H Creatinine 0.7 Est GFR (CKD-EPI)AfAm 104.03 Est GFR (CKD-EPI)NonAf 89.76 POC Glucometer 188 Random Glucose 216 H Calcium 8.4 L Phosphorus 3.8 Magnesium 2.6 H Total Bilirubin 0.4 AST 73 H ALT 93 H Alkaline Phosphatase 133 H Total Protein 5.7 L Albumin 1.7 L 09/08/19 09/08/19 12:55 17:21 WBC RBC Hgb Hct MCV MCH MCHC RDW Plt Count MPV Absolute Neuts (auto) Neutrophils % Lymphocytes % Monocytes % Eosinophils % Basophils % Nucleated RBC % Sodium Potassium Chloride Carbon Dioxide Anion Gap BUN Creatinine Est GFR (CKD-EPI)AfAm Est GFR (CKD-EPI)NonAf POC Glucometer 307 249 Random Glucose Calcium Phosphorus Magnesium Total Bilirubin AST ALT Alkaline Phosphatase Total Protein Albumin Active Medications Generic Name Dose Route Start Last Admin Trade Name Pérezq PRN Reason Stop Dose Admin Albuterol/Ipratropium 1 amp 09/07/19 16:00 09/08/19 16:02 Duoneb - NEB 1 amp RQID [facility] Administration Amiodarone HCl 200 mg 09/07/19 10:00 09/08/19 09:23 Cordarone - PO 200 mg DAILY [facility] Administration Apixaban 5 mg 09/07/19 10:00 09/08/19 09:22 Eliquis - PO 5 mg BID [facility] Administration Atorvastatin Calcium 80 mg 09/07/19 22:00 09/07/19 22:10 Lipitor - PO 80 mg HS [facility] Administration Chlorhexidine Gluconate 1 applic 09/07/19 22:00 09/07/19 22:10 Hibiclens For Decolonization - TP 1 applic HS [facility] Administration Sodium Chloride 1,000 mls @ 75 mls/hr 09/07/19 11:45 09/08/19 12:00 1/2 Normal Saline IV 75 mls/hr ASDIR [facility] Administration Piperacillin Sod/Tazobactam 50 mls @ 100 mls/hr 09/07/19 18:00 09/08/19 17:28 Sod 3.375 gm/ Dextrose IVPB 100 mls/hr Q8H-IV [facility] Administration Protocol Azithromycin 500 mg in 250 mls @ 250 mls/hr 09/07/19 12:15 09/08/19 09:24 Zithromax 500mg Ivpb (Pre-Docked) IVPB 250 mls/hr DAILY [facility] Administration Insulin Aspart 1 vial 09/06/19 22:00 09/08/19 17:28 Novolog Vial Sliding Scale - SQ 4 units ACHS [facility] Administration Protocol Levothyroxine Sodium 50 mcg 09/07/19 07:00 09/08/19 06:05 Synthroid - PO 50 mcg ACBK [facility] Administration Metoprolol Tartrate 25 mg 09/07/19 10:00 09/08/19 09:22 Lopressor - PO 25 mg DAILY [facility] Administration Mupirocin 1 applic 09/07/19 22:00 09/08/19 09:22 Bactroban Ointment (For Decolonization) - NS 09/12/19 21:59 1 applic BID [facility] Administration ASSESSMENT/PLAN: 79 M PMH Afib (Eliquis 5mg BID), cardiac stent placements, COPD, DM, HTN, GERD, Diverticulosis, gout, chronic anemia, bladder &renal stones, hypothyroidism, multiple basal cell carcinomas (s/p excision) presenting with pneumonia. Neuro - noted that patient was Altered at NH. Is a sign of infection for him. -Patient is AOx3 today Cardiovascular -Hx of A-fib. Continuing Eliquis -EKG NSR, PVCs, PAC rate 100 bpm, QTc 410 no signs of ischemia -Continue metoprolol 25mg, amiodarone 200 mg, lipitor -Continue telemetry monitoring Pulmonary -Hx of Afib on Eliquis -Patient has history of LLL infiltrate -Patient has new infiltrate in right lung -Continue duonebs QID -Was put on SIMV mode for vent for short wean trail -Passy adalgisa valve as tolerated ID -Continue Vanc/zoysn -Continue fluids -Sputum culture positive of MRSA and pseudomonas. GI -Abdomen U/S shows fatty liver -Restart feeds -Glucerna 1.5 PEG -Swallow eval with modified barium likely tomorrow. Renal -Continue 1/2 NS @ 75ml/hr Endo -Hx of hypothyroid and DM -Synthroid -ISS F: 1/2 NS @ 75 ml/hr E: Monitor CMP N: Tube feeds glucerna Dispo: Transfer to Med/Surg Visit type - Emergency Visit Emergency Visit: Yes ED Registration Date: 09/06/19 Care time: The patient presented to the Emergency Department on the above date and was hospitalized for further evaluation of their emergent condition. - New Patient This patient is new to me today: No - Critical Care Critical Care patient: Yes Total Critical Care Time (in minutes): 45 Critical Care Statement: The care of this patient involved high complexity decision making to prevent further life threatening deterioration of the patient's condition and/or to evaluate & treat vital organ system(s) failure or risk of failure. ATTENDING PHYSICIAN STATEMENT I saw and evaluated the patient. I reviewed the resident's note and discussed the case with the resident. I agree with the resident's findings and plan as documented. SUBJECTIVE: OBJECTIVE: ASSESSMENT AND PLAN:
[2019-09-08] MEDS: ATORVASTATIN CA 40 MG TABLET (FP) PO SCH (22:43)
[2019-09-08] MEDS: CHLORHEXIDINE GLUCONATE 4% CLEANSER FOR DECOLONIZATION TP SCH (22:43)
[2019-09-09] MEDS ORDERED: LORazepam 2 MG/ML SDV VIAL IVPUSH ONE (00:18)
[2019-09-09] MEDS ORDERED: DEXTROSE 5%-WATER - 50 ML IVPB ONE ×3 (01:08→17:10)
[2019-09-09] MEDS ORDERED: PIPERACILLIN/TAZOBACTAM 3.375 GM VIAL IVPB ONE ×3 (01:08→17:09)
[2019-09-09] MEDS: PIPERACILLIN/TAZOB 3.375 GM 3.375 GM in DEXTROSE 5%-WATER - 50 ML IVPB SCH ×3 (01:10→17:13)
[2019-09-09] MEDS: LEVOTHYROXINE NA 50 MCG TABLET (FP) PO SCH (06:03)
[2019-09-09] MEDS: INSULIN SLIDING SCALE (NOVOLOG) 1 VIAL SQ SCH ×4 (06:03→22:32)
[2019-09-09 07:01] LABS: BASO % 0.7 % (0-2.0); EOS % 6.4 % (0-4.5); HEMATOCRIT 23.7 % (35.4-49); HEMOGLOBIN 7.4 GM/dL (11.7-16.9); LYMPH % 9.8 % (8-40); MCH 28.8 pg (25.7-33.7); MCHC 31.3 g/dl (32.0-35.9); MEAN CELL VOLUME 92.1 fl (80-96); MONO % 8.8 % (3.8-10.2); NEUT % 74.3 % (42.8-82.8); PLATELET COUNT 309 K/MM3 (134-434); RBC 2.57 M/mm3 (4.00-5.60); RDW 18.3 % (11.9-15.9); WHITE BLOOD COUNT 11.4 K/mm3 (4.0-10.0)
[2019-09-09 07:41] LABS: ALBUMIN 1.7 g/dl (3.4-5.0); BILIRUBIN,TOTAL 0.2 mg/dL (0.2-1); BLOOD UREA NITROGEN 26.8 mg/dL (7-18); CALCIUM 7.8 mg/dL (8.5-10.1); CREATININE 0.6 mg/dL (0.55-1.3); MAGNESIUM 2.3 mg/dL (1.8-2.4); PHOSPHOROUS 2.9 mg/dL (2.5-4.9); POTASSIUM 4.4 mmol/L (3.5-5.1); TOT PROT 5.8 g/dl (6.4-8.2)
[2019-09-09] MEDS ORDERED: FUROSEMIDE 40 MG/4 ML INJECTABLE VIAL IVPUSH ONE (07:54)
[2019-09-09] MEDS: ALBUTEROL SO4 2.5/IPRATROPIUM 0.5 INH SOL 3 ML VIAL.NEB. NEB SCH ×4 (08:20→21:19)
[2019-09-09] MEDS: AZITHROMYCIN IVPB 500 MG/250 ML BAG IVPB SCH (09:14)
[2019-09-09] MEDS: APIXABAN 5 MG TABLET PO SCH ×2 (09:14→22:32)
[2019-09-09] MEDS: AMIODARONE HCL 200 MG TABLET PO SCH (09:14)
[2019-09-09] MEDS: METOPROLOL TARTRATE 25 MG TABLET (FP) PO SCH (09:14)
--- NOTE | 2019-09-09 09:18 | PN ---
Progress Note, Physician - Current Medication List Current Medications: Active Medications Albuterol/Ipratropium (Duoneb -) 1 amp NEB RQID [facility] Last Admin: 09/08/19 20:58 Dose: 1 amp Amiodarone HCl (Cordarone -) 200 mg PO DAILY [facility] Last Admin: 09/09/19 09:14 Dose: 200 mg Apixaban (Eliquis -) 5 mg PO BID [facility] Last Admin: 09/09/19 09:14 Dose: 5 mg Atorvastatin Calcium (Lipitor -) 80 mg PO HS [facility] Last Admin: 09/08/19 22:43 Dose: 80 mg Chlorhexidine Gluconate (Hibiclens For Decolonization -) 1 applic TP HS [facility] Last Admin: 09/08/19 22:43 Dose: 1 applic Piperacillin Sod/Tazobactam (Sod 3.375 gm/ Dextrose) 50 mls @ 100 mls/hr IVPB Q8H-IV [facility]; Protocol Last Admin: 09/09/19 01:10 Dose: 100 mls/hr Azithromycin (Zithromax 500mg Ivpb (Pre-Docked)) 500 mg in 250 mls @ 250 mls/ hr IVPB DAILY [facility] Last Admin: 09/09/19 09:14 Dose: 250 mls/hr Insulin Aspart (Novolog Vial Sliding Scale -) 1 vial SQ ACHS [facility]; Protocol Last Admin: 09/09/19 06:03 Dose: 2 units Levothyroxine Sodium (Synthroid -) 50 mcg PO ACBK [facility] Last Admin: 09/09/19 06:03 Dose: 50 mcg Metoprolol Tartrate (Lopressor -) 25 mg PO DAILY [facility] Last Admin: 09/09/19 09:14 Dose: 25 mg Mupirocin (Bactroban Ointment (For Decolonization) -) 1 applic NS BID [facility] Stop: 09/12/19 21:59 Last Admin: 09/08/19 22:42 Dose: 1 applic - Objective Vital Signs: Vital Signs Temperature 97.3 F L 09/09/19 06:49 Pulse Rate 75 09/09/19 08:00 Respiratory Rate 27 H 09/09/19 09:01 Blood Pressure 138/62 09/09/19 08:00 O2 Sat by Pulse Oximetry (%) 100 09/09/19 09:01 Cardiovascular: Yes: S1, S2 Respiratory: Yes: Mechanically Ventilated Gastrointestinal: Yes: Normal Bowel Sounds, Soft Neurological: Yes: Lethargy Labs: CBC, BMP 09/09/19 05:50 09/09/19 05:50 INR, PTT INR 1.74 (0.83-1.09) H 09/06/19 17:00 Problem List - Problems (1) Paroxysmal A-fib Assessment/Plan: - stable Continue icu Continue BB, Mandaquis Code(s): I48.0 - PAROXYSMAL ATRIAL FIBRILLATION (2) Sepsis Assessment/Plan: Likely due to Pneumonia Zosyn and Vancomycin Appreciate ID consult Monitor CBC, BMP Microbiology 09/06/19 17:00 Blood - Peripheral Venous Blood Culture - Preliminary NO GROWTH OBTAINED AFTER 24 HOURS, INCUBATION TO CONTINUE FOR 4 DAYS. 09/06/19 17:15 Blood - Peripheral Venous Blood Culture - Preliminary NO GROWTH OBTAINED AFTER 24 HOURS, INCUBATION TO CONTINUE FOR 4 DAYS. 09/07/19 05:30 Sputum - Endotrachea Suction/Ventilator Gram Stain - Final 09/07/19 05:30 Urine For Antigen Detection Legionella Antigen - Preliminary 09/07/19 05:30 Urine For Antigen Detection Streptococcus pneumoniae Antigen (M - Preliminary Code(s): A41.9 - SEPSIS, UNSPECIFIED ORGANISM Qualifiers: Sepsis type: sepsis due to unspecified organism Sepsis acute organ dysfunction status: unspecified Qualified Code(s): A41.9 - Sepsis, unspecified organism (3) Pneumonia Assessment/Plan: Microbiology 09/06/19 17:00 Blood - Peripheral Venous Blood Culture - Preliminary NO GROWTH OBTAINED AFTER 24 HOURS, INCUBATION TO CONTINUE FOR 4 DAYS. 09/06/19 17:15 Blood - Peripheral Venous Blood Culture - Preliminary NO GROWTH OBTAINED AFTER 24 HOURS, INCUBATION TO CONTINUE FOR 4 DAYS. 09/07/19 05:30 Sputum - Endotrachea Suction/Ventilator Gram Stain - Final 09/07/19 05:30 Urine For Antigen Detection Legionella Antigen - Preliminary 09/07/19 05:30 Urine For Antigen Detection Streptococcus pneumoniae Antigen (M - Preliminary Zosyn, Vancomycin given in ED, will continue Appreciate ID consult Monitor CBC, BMP O2- trach-vent Monitor vent settings Duonebs Code(s): J18.9 - PNEUMONIA, UNSPECIFIED ORGANISM Qualifiers: Pneumonia type: due to unspecified organism Laterality: bilateral Lung location: lower lobe of lung Qualified Code(s): J18.9 - Pneumonia, unspecified organism (4) Chronic respiratory failure with hypoxia and hypercapnia Assessment/Plan: s/p Trach- vent dependent Appreciate Pulm consult Monitor Spo2 [facility] Code(s): J96.11 - CHRONIC RESPIRATORY FAILURE WITH HYPOXIA; J96.12 - CHRONIC RESPIRATORY FAILURE WITH HYPERCAPNIA (5) Anemia Assessment/Plan: prbc monitor labs w/u ordered Code(s): D64.9 - ANEMIA, UNSPECIFIED
[2019-09-09] MEDS: MUPIROCIN 2% TOPICAL OINTMENT FOR DECOLONIZATION NS SCH ×2 (09:48→22:31)
[2019-09-09 09:49] LABS: ANISOCYTOSIS 1+; MACROCYTOSIS 0; PLATELET ESTIMATE NORMAL
--- NOTE | 2019-09-09 09:53 | PN ---
Physical Exam: SUBJECTIVE: Patient seen and examined no ovenight events today OBJECTIVE: Vital Signs Period Temp Pulse Resp BP Sys/Wynne Pulse Ox Last 24 Hr 97.3 F-98.7 F 70-90 16-32 107-142/46-69 97-100 GENERAL: The patient is awake and alert HEAD: Normal with no signs of trauma. EYES: PERRL, ENT: Ears normal, nares patent, oropharynx clear without exudates, moist mucous membranes. NECK: Trach to vent LUNGS: rhonchi. HEART: Regular rate and rhythm, S1, S2 without murmur, rub or gallop. ABDOMEN: Soft, nontender, nondistended, normoactive bowel sounds, no guarding, no rebound, no hepatosplenomegaly, no masses. EXTREMITIES: 2+ pulses, warm, well-perfused, no edema. NEUROLOGICAL: Cranial nerves II through XII grossly intact. Normal speech, gait not observed. PSYCH: Normal mood, normal affect. SKIN: Warm, dry, normal turgor, no rashes or lesions noted Laboratory Results - last 24 hr 09/06/19 09/08/19 09/08/19 17:00 12:55 17:21 WBC RBC Hgb Hct MCV MCH MCHC RDW Plt Count MPV Absolute Neuts (auto) Neutrophils % Lymphocytes % Monocytes % Eosinophils % Basophils % Nucleated RBC % Sodium Potassium Chloride Carbon Dioxide Anion Gap BUN Creatinine Est GFR (CKD-EPI)AfAm Est GFR (CKD-EPI)NonAf POC Glucometer 307 249 Random Glucose Calcium Phosphorus Magnesium Total Bilirubin AST ALT Alkaline Phosphatase Total Protein Albumin Blood Type A NEGATIVE Antibody Screen Negative Crossmatch See Detail 09/08/19 09/09/19 09/09/19 22:47 04:58 05:50 WBC 11.4 H RBC 2.57 L Hgb 7.4 L Hct 23.7 L MCV 92.1 MCH 28.8 MCHC 31.3 L RDW 18.3 H Plt Count 309 MPV 9.0 Absolute Neuts (auto) 8.5 H Neutrophils % 74.3 Lymphocytes % 9.8 Monocytes % 8.8 Eosinophils % 6.4 H Basophils % 0.7 Nucleated RBC % 0 Sodium Potassium Chloride Carbon Dioxide Anion Gap BUN Creatinine Est GFR (CKD-EPI)AfAm Est GFR (CKD-EPI)NonAf POC Glucometer 195 200 Random Glucose Calcium Phosphorus Magnesium Total Bilirubin AST ALT Alkaline Phosphatase Total Protein Albumin Blood Type Antibody Screen Crossmatch 09/09/19 05:50 WBC RBC Hgb Hct MCV MCH MCHC RDW Plt Count MPV Absolute Neuts (auto) Neutrophils % Lymphocytes % Monocytes % Eosinophils % Basophils % Nucleated RBC % Sodium 143 Potassium 4.4 Chloride 108 H Carbon Dioxide 31 Anion Gap 5 L BUN 26.8 H Creatinine 0.6 Est GFR (CKD-EPI)AfAm 110.83 Est GFR (CKD-EPI)NonAf 95.63 POC Glucometer Random Glucose 201 H Calcium 7.8 L Phosphorus 2.9 Magnesium 2.3 Total Bilirubin 0.2 AST 48 H ALT 84 H Alkaline Phosphatase 139 H Total Protein 5.8 L Albumin 1.7 L Blood Type Antibody Screen Crossmatch Active Medications Generic Name Dose Route Start Last Admin Trade Name Freq PRN Reason Stop Dose Admin Albuterol/Ipratropium 1 amp 09/07/19 16:00 09/08/19 20:58 Duoneb - NEB 1 amp RQID [facility] Administration Amiodarone HCl 200 mg 09/07/19 10:00 09/09/19 09:14 Cordarone - PO 200 mg DAILY [facility] Administration Apixaban 5 mg 09/07/19 10:00 09/09/19 09:14 Eliquis - PO 5 mg BID [facility] Administration Atorvastatin Calcium 80 mg 09/07/19 22:00 09/08/19 22:43 Lipitor - PO 80 mg HS [facility] Administration Chlorhexidine Gluconate 1 applic 09/07/19 22:00 09/08/19 22:43 Hibiclens For Decolonization - TP 1 applic HS [facility] Administration Piperacillin Sod/Tazobactam 50 mls @ 100 mls/hr 09/07/19 18:00 09/09/19 09:48 Sod 3.375 gm/ Dextrose IVPB 100 mls/hr Q8H-IV [facility] Administration Protocol Azithromycin 500 mg in 250 mls @ 250 mls/hr 09/07/19 12:15 09/09/19 09:14 Zithromax 500mg Ivpb (Pre-Docked) IVPB 250 mls/hr DAILY [facility] Administration Insulin Aspart 1 vial 09/06/19 22:00 09/09/19 06:03 Novolog Vial Sliding Scale - SQ 2 units ACHS [facility] Administration Protocol Levothyroxine Sodium 50 mcg 09/07/19 07:00 09/09/19 06:03 Synthroid - PO 50 mcg ACBK [facility] Administration Metoprolol Tartrate 25 mg 09/07/19 10:00 09/09/19 09:14 Lopressor - PO 25 mg DAILY [facility] Administration Mupirocin 1 applic 09/07/19 22:00 09/09/19 09:48 Bactroban Ointment (For Decolonization) - NS 09/12/19 21:59 1 applic BID [facility] Administration ASSESSMENT/PLAN: 79 M PMH Afib (Eliquis 5mg BID), cardiac stent placements, COPD, DM, HTN, GERD, Diverticulosis, gout, chronic anemia, bladder &renal stones, hypothyroidism, multiple basal cell carcinomas (s/p excision) presenting with pneumonia. Neuro Patient alert today -Do not give ativan for agitation -Seroquel/ haldol preferable Head CT 09/09/2019 moderate atrophy no focal intracranial lesion or hemorrhage Cardiovascular -Hx of A-fib. Continuing Eliquis -Continue metoprolol 25mg, amiodarone 200 mg, lipitor -Continue telemetry monitoring Pulmonary -Bilateral infiltrates CXR today congestion and superimposed infiltrates with fluid no change of adverse nature since yesterday -Continue duonebs QID -Trach changed today ID -On azithromycin and Zosyn -Continue fluids -Sputum culture positive of MRSA and pseudomonas. GI -Abdomen U/S shows fatty liver -Restart feeds -Glucerna 1.5 PEG -modified barified swallow today could not swallow -will remain NPO Renal -hold fluids -Lasix 40 mg IV Endo -Hx of hypothyroid and DM -Synthroid -ISS Heme/Onc Hb 7.1 yesterday goal Hgb is 8 due to CAD hx 1 unit of PRBC F: no fluids at this time E: Monitor CMP N: Tube feeds glucerna Dispo: Transfer to Med/Surg Visit type - Emergency Visit Emergency Visit: Yes ED Registration Date: 09/06/19 Care time: The patient presented to the Emergency Department on the above date and was hospitalized for further evaluation of their emergent condition. - New Patient This patient is new to me today: No - Critical Care Critical Care patient: No - Discharge Referral Referred to [facility] No ATTENDING PHYSICIAN STATEMENT I saw and evaluated the patient. I reviewed the resident's note and discussed the case with the resident. I agree with the resident's findings and plan as documented. SUBJECTIVE: OBJECTIVE: ASSESSMENT AND PLAN:
--- NOTE | 2019-09-09 13:01 | PN ---
Teaching Attending Note Name of Resident: Marylu Mckeon ATTENDING PHYSICIAN STATEMENT I saw and evaluated the patient. I reviewed the resident's note and discussed the case with the resident. I agree with the resident's findings and plan as documented. SUBJECTIVE: Pt seen and examined in the ICU. Vented, awake. Rates controlled. No fevers recorded. OBJECTIVE: Vital Signs Period Temp Pulse Resp BP Sys/Wynne Pulse Ox Last 24 Hr 97.3 F-98.6 F 70-90 16-30 107-142/46-69 97-100 Intake & Output 09/06/19 09/07/19 09/08/19 09/09/19 23:59 23:59 23:59 23:59 Intake Total 2070 2464 761 Output Total 1250 850 Balance 820 1614 761 Weight 86.137 kg 83.007 kg 84.141 kg 86.5 kg Gen: vented, awake Heart: RRR Lung: scattered rhonchi Abd: soft, nontender Ext: + edema CBC, BMP 09/09/19 05:50 09/09/19 05:50 Active Medications Albuterol/Ipratropium (Duoneb -) 1 amp NEB RQID [facility] Last Admin: 09/08/19 20:58 Dose: 1 amp Amiodarone HCl (Cordarone -) 200 mg PO DAILY [facility] Last Admin: 09/09/19 09:14 Dose: 200 mg Apixaban (Eliquis -) 5 mg PO BID [facility] Last Admin: 09/09/19 09:14 Dose: 5 mg Atorvastatin Calcium (Lipitor -) 80 mg PO [facility] Last Admin: 09/08/19 22:43 Dose: 80 mg Chlorhexidine Gluconate (Hibiclens For Decolonization -) 1 applic TP [facility] Last Admin: 09/08/19 22:43 Dose: 1 applic Piperacillin Sod/Tazobactam (Sod 3.375 gm/ Dextrose) 50 mls @ 100 mls/hr IVPB Q8H-IV [facility]; Protocol Last Admin: 09/09/19 09:48 Dose: 100 mls/hr Azithromycin (Zithromax 500mg Ivpb (Pre-Docked)) 500 mg in 250 mls @ 250 mls/ hr IVPB DAILY [facility] Last Admin: 09/09/19 09:14 Dose: 250 mls/hr Insulin Aspart (Novolog Vial Sliding Scale -) 1 vial SQ ACHS [facility]; Protocol Last Admin: 09/09/19 06:03 Dose: 2 units Levothyroxine Sodium (Synthroid -) 50 mcg PO ACBK [facility] Last Admin: 09/09/19 06:03 Dose: 50 mcg Metoprolol Tartrate (Lopressor -) 25 mg PO DAILY [facility] Last Admin: 09/09/19 09:14 Dose: 25 mg Mupirocin (Bactroban Ointment (For Decolonization) -) 1 applic NS BID [facility] Stop: 09/12/19 21:59 Last Admin: 09/09/19 09:48 Dose: 1 applic ASSESSMENT AND PLAN: Chronic Respiratory Failure Pneumonia Sepsis COPD Atrial Fibrillation CAD HTN DM Hypothyroidism Diverticulosis Anemia - continue antibiotics per ID - f/u cultures - inhaled bronchodilators - O2 to keep SpO2 >90% - lasix today - monitor urine output, creatinine - monitor lytes - rate controlled - continue anticoagulation - spontaneous breathing trials when stable - enteral feeds - DVT/GI prophylaxis - can monitor on vent floor
[2019-09-09] MEDS ORDERED: ACETAMINOPHEN 325 MG TABLET (FP) PO PRN (13:09)
--- NOTE | 2019-09-09 16:35 | PN ---
Progress Note (short form) - Note Progress Note: awake trach to vent silent aspiration by MBS Vital Signs Period Temp Pulse Resp BP Sys/Wynne Pulse Ox Last 24 Hr 97.3 F-98.8 F 66-90 16-28 107-149/46-86 99-100 cor-rrr lungs decreased bs at bases abd soft, +gt ext no edema CBC, BMP 09/09/19 05:50 09/09/19 05:50 Microbiology 09/07/19 05:30 Sputum - Endotrachea Suction/Ventilator Gram Stain - Final 09/07/19 05:30 Sputum - Endotrachea Suction/Ventilator Sputum Culture - Preliminary Mr S Aureus Pseudomonas Species Lactose Fermenting Neg Bacilli 09/06/19 17:00 Blood - Peripheral Venous Blood Culture - Preliminary NO GROWTH OBTAINED AFTER 48 HOURS, INCUBATION TO CONTINUE FOR 3 DAYS. 09/06/19 17:15 Blood - Peripheral Venous Blood Culture - Preliminary NO GROWTH OBTAINED AFTER 48 HOURS, INCUBATION TO CONTINUE FOR 3 DAYS. 09/07/19 05:30 Urine For Antigen Detection Legionella Antigen - Final 09/07/19 05:30 Urine For Antigen Detection Streptococcus pneumoniae Antigen (M - Final 09/07/19 06:30 Urine - Urine Clean Catch Urine Culture - Final NO GROWTH OBTAINED a/p chronic respiratory failure pneumonia continue zosyn resume vancomycin d/c zithromax
[2019-09-09] MEDS: VANCOMYCIN 1 GRAM (PRE-DOCKED) 1,000 MG/250 ML BAG IVPB SCH (17:13)
[2019-09-09 17:45] LABS: HEMATOCRIT 26.5 % (35.4-49); HEMOGLOBIN 8.4 GM/dL (11.7-16.9); MCHC 31.9 g/dl (32.0-35.9); MEAN CELL VOLUME 90.8 fl (80-96); MEAN PLT VOLUME 9.2 fl (7.5-11.1); PLATELET COUNT 282 K/MM3 (134-434); RBC 2.92 M/mm3 (4.00-5.60); RDW 17.9 % (11.9-15.9); WHITE BLOOD COUNT 12.1 K/mm3 (4.0-10.0)
[2019-09-09] MEDS: CHLORHEXIDINE GLUCONATE 4% CLEANSER FOR DECOLONIZATION TP SCH (22:32)
[2019-09-09] MEDS: ATORVASTATIN CA 40 MG TABLET (FP) PO SCH (22:32)
[2019-09-10] MEDS: PIPERACILLIN/TAZOB 3.375 GM 3.375 GM in DEXTROSE 5%-WATER - 50 ML IVPB SCH ×2 (03:30→10:14)
[2019-09-10] MEDS ORDERED: DEXTROSE 5%-WATER - 50 ML IVPB ONE ×2 (03:37→09:56)
[2019-09-10] MEDS ORDERED: PIPERACILLIN/TAZOBACTAM 3.375 GM VIAL IVPB ONE ×2 (03:37→09:56)
[2019-09-10] MEDS: VANCOMYCIN 1 GRAM (PRE-DOCKED) 1,000 MG/250 ML BAG IVPB SCH ×2 (05:18→16:34)
[2019-09-10] MEDS: LEVOTHYROXINE NA 50 MCG TABLET (FP) PO SCH (06:41)
[2019-09-10] MEDS: INSULIN SLIDING SCALE (NOVOLOG) 1 VIAL SQ SCH ×4 (06:41→21:20)
--- NOTE | 2019-09-10 09:14 | PN ---
Progress Note, Physician - Current Medication List Current Medications: Active Medications Acetaminophen (Tylenol -) 650 mg PO Q6H PRN PRN Reason: FEVER Last Admin: 09/09/19 13:19 Dose: 650 mg Albuterol/Ipratropium (Duoneb -) 1 amp NEB RQID [facility] Last Admin: 09/09/19 21:19 Dose: 1 amp Amiodarone HCl (Cordarone -) 200 mg PO DAILY [facility] Last Admin: 09/09/19 09:14 Dose: 200 mg Apixaban (Eliquis -) 5 mg PO BID [facility] Last Admin: 09/09/19 22:32 Dose: 5 mg Atorvastatin Calcium (Lipitor -) 80 mg PO HS [facility] Last Admin: 09/09/19 22:32 Dose: 80 mg Chlorhexidine Gluconate (Hibiclens For Decolonization -) 1 applic TP [facility] Last Admin: 09/09/19 22:32 Dose: 1 applic Furosemide (Lasix Injection -) 40 mg IVPUSH ONCE ONE Stop: 09/10/19 09:16 Piperacillin Sod/Tazobactam (Sod 3.375 gm/ Dextrose) 50 mls @ 100 mls/hr IVPB Q8H-IV [facility]; Protocol Last Admin: 09/10/19 03:30 Dose: 100 mls/hr Vancomycin HCl (Vancomycin (Pre-Docked)) 1,000 mg in 250 mls @ 166.667 mls/hr IVPB BID@0500,1700 [facility]; Protocol Last Admin: 09/10/19 05:18 Dose: 166.667 mls/hr Insulin Aspart (Novolog Vial Sliding Scale -) 1 vial SQ ACHS [facility]; Protocol Last Admin: 09/10/19 06:41 Dose: 6 units Levothyroxine Sodium (Synthroid -) 50 mcg PO ACBK [facility] Last Admin: 09/10/19 06:41 Dose: 50 mcg Metoprolol Tartrate (Lopressor -) 25 mg PO DAILY [facility] Last Admin: 09/09/19 09:14 Dose: 25 mg Mupirocin (Bactroban Ointment (For Decolonization) -) 1 applic NS BID [facility] Stop: 09/12/19 21:59 Last Admin: 09/09/19 22:31 Dose: 1 applic - Objective Vital Signs: Vital Signs Temperature 98.0 F 09/10/19 05:00 Pulse Rate 73 09/10/19 05:00 Respiratory Rate 21 H 09/10/19 06:34 Blood Pressure 131/58 L 09/10/19 05:00 O2 Sat by Pulse Oximetry (%) 100 09/09/19 21:00 Cardiovascular: Yes: S1, S2 Respiratory: Yes: Mechanically Ventilated Gastrointestinal: Yes: Normal Bowel Sounds, Soft Neurological: Yes: Alert Labs: CBC, BMP 09/09/19 17:30 09/09/19 05:50 INR, PTT INR 1.74 (0.83-1.09) H 09/06/19 17:00 Problem List - Problems (1) Paroxysmal A-fib Assessment/Plan: - stable Continue icu Continue Alba FATIMA Code(s): I48.0 - PAROXYSMAL ATRIAL FIBRILLATION (2) Sepsis Assessment/Plan: Likely due to Pneumonia Zosyn and Vancomycin Appreciate ID consult Monitor CBC, BMP Microbiology 09/06/19 17:00 Blood - Peripheral Venous Blood Culture - Preliminary NO GROWTH OBTAINED AFTER 72 HOURS, INCUBATION TO CONTINUE FOR 2 DAYS. 09/06/19 17:15 Blood - Peripheral Venous Blood Culture - Preliminary NO GROWTH OBTAINED AFTER 72 HOURS, INCUBATION TO CONTINUE FOR 2 DAYS. 09/07/19 05:30 Sputum - Endotrachea Suction/Ventilator Gram Stain - Final 09/07/19 05:30 Sputum - Endotrachea Suction/Ventilator Sputum Culture - Preliminary Mr S Aureus Pseudomonas Species Lactose Fermenting Neg Bacilli 09/07/19 05:30 Urine For Antigen Detection Legionella Antigen - Final 09/07/19 05:30 Urine For Antigen Detection Streptococcus pneumoniae Antigen (M - Final 09/07/19 06:30 Urine - Urine Clean Catch Urine Culture - Final NO GROWTH OBTAINED Code(s): A41.9 - SEPSIS, UNSPECIFIED ORGANISM Qualifiers: Sepsis type: sepsis due to unspecified organism Sepsis acute organ dysfunction status: unspecified Qualified Code(s): A41.9 - Sepsis, unspecified organism (3) Pneumonia Assessment/Plan: Microbiology 09/06/19 17:00 Blood - Peripheral Venous Blood Culture - Preliminary NO GROWTH OBTAINED AFTER 24 HOURS, INCUBATION TO CONTINUE FOR 4 DAYS. 09/06/19 17:15 Blood - Peripheral Venous Blood Culture - Preliminary NO GROWTH OBTAINED AFTER 24 HOURS, INCUBATION TO CONTINUE FOR 4 DAYS. 09/07/19 05:30 Sputum - Endotrachea Suction/Ventilator Gram Stain - Final 09/07/19 05:30 Urine For Antigen Detection Legionella Antigen - Preliminary 09/07/19 05:30 Urine For Antigen Detection Streptococcus pneumoniae Antigen (M - Preliminary Zosyn, Vancomycin Appreciate ID consult Monitor CBC, BMP O2- trach-vent Monitor vent settings Duonebs Code(s): J18.9 - PNEUMONIA, UNSPECIFIED ORGANISM Qualifiers: Pneumonia type: due to unspecified organism Laterality: bilateral Lung location: lower lobe of lung Qualified Code(s): J18.9 - Pneumonia, unspecified organism (4) Chronic respiratory failure with hypoxia and hypercapnia Assessment/Plan: s/p Trach- vent dependent Appreciate Pulm consult Monitor Spo2 Duonebs Code(s): J96.11 - CHRONIC RESPIRATORY FAILURE WITH HYPOXIA; J96.12 - CHRONIC RESPIRATORY FAILURE WITH HYPERCAPNIA (5) Anemia Assessment/Plan: prbc monitor labs w/u ordered Code(s): D64.9 - ANEMIA, UNSPECIFIED
[2019-09-10] MEDS ORDERED: FUROSEMIDE 40 MG/4 ML INJECTABLE VIAL IVPUSH ONE ×3 (09:15→14:00)
[2019-09-10] MEDS: ALBUTEROL SO4 2.5/IPRATROPIUM 0.5 INH SOL 3 ML VIAL.NEB. NEB SCH ×4 (09:23→20:25)
[2019-09-10] MEDS ORDERED: PT OWN MED DRAWER 7, Y5N ONE (09:56)
[2019-09-10] MEDS: AMIODARONE HCL 200 MG TABLET PO SCH (10:13)
[2019-09-10] MEDS: APIXABAN 5 MG TABLET PO SCH ×2 (10:13→21:12)
[2019-09-10] MEDS: METOPROLOL TARTRATE 25 MG TABLET (FP) PO SCH (10:14)
[2019-09-10] MEDS: MUPIROCIN 2% TOPICAL OINTMENT FOR DECOLONIZATION NS SCH ×2 (10:26→21:17)
--- NOTE | 2019-09-10 12:13 | PN ---
Teaching Attending Note Name of Resident: Marylu Mckeon ATTENDING PHYSICIAN STATEMENT I saw and evaluated the patient. I reviewed the resident's note and discussed the case with the resident. I agree with the resident's findings and plan as documented. SUBJECTIVE: Pt seen and examined in the ICU. Vented, awake. No fevers recorded. Heart rates controlled. OBJECTIVE: Vital Signs Period Temp Pulse Resp BP Sys/Wynne Pulse Ox Last 24 Hr 97.6 F-98.8 F 66-111 13-28 106-162/56-86 100-100 Intake & Output 09/07/19 09/08/19 09/09/19 09/10/19 23:59 23:59 23:59 23:59 Intake Total 2070 2464 3886 3138 Output Total 1250 850 Balance 820 1614 3886 3138 Weight 83.007 kg 84.141 kg 86.5 kg Gen: vented, awake Heart: irregular Lung: scattered rhonchi Abd: soft, nontender Ext: + edema CBC, BMP 09/09/19 17:30 Active Medications Acetaminophen (Tylenol -) 650 mg PO Q6H PRN PRN Reason: FEVER Last Admin: 09/09/19 13:19 Dose: 650 mg Albuterol/Ipratropium (Duoneb -) 1 amp NEB RQID [facility] Last Admin: 09/10/19 11:37 Dose: 1 amp Amiodarone HCl (Cordarone -) 200 mg PO DAILY [facility] Last Admin: 09/10/19 10:13 Dose: 200 mg Apixaban (Eliquis -) 5 mg PO BID [facility] Last Admin: 09/10/19 10:13 Dose: 5 mg Atorvastatin Calcium (Lipitor -) 80 mg PO HS [facility] Last Admin: 09/09/19 22:32 Dose: 80 mg Chlorhexidine Gluconate (Hibiclens For Decolonization -) [address] [facility] Last Admin: 09/09/19 22:32 Dose: 1 applic Furosemide (Lasix Injection -) 40 mg IVPUSH ONCE ONE Stop: 09/10/19 14:01 Piperacillin Sod/Tazobactam (Sod 3.375 gm/ Dextrose) 50 mls @ 100 mls/hr IVPB Q8H-IV [facility]; Protocol Last Admin: 09/10/19 10:14 Dose: 100 mls/hr Vancomycin HCl (Vancomycin (Pre-Docked)) 1,000 mg in 250 mls @ 166.667 mls/hr IVPB BID@0500,1700 [facility]; Protocol Last Admin: 09/10/19 05:18 Dose: 166.667 mls/hr Insulin Aspart (Novolog Vial Sliding Scale -) 1 vial SQ ACHS [facility]; Protocol Last Admin: 09/10/19 06:41 Dose: 6 units Levothyroxine Sodium (Synthroid -) 50 mcg PO ACBK [facility] Last Admin: 09/10/19 06:41 Dose: 50 mcg Metoprolol Tartrate (Lopressor -) 25 mg PO DAILY [facility] Last Admin: 09/10/19 10:14 Dose: 25 mg Mupirocin (Bactroban Ointment (For Decolonization) -) 1 applic NS BID [facility] Stop: 09/12/19 21:59 Last Admin: 09/10/19 10:26 Dose: 1 applic ASSESSMENT AND PLAN: Chronic Respiratory Failure Pneumonia Sepsis COPD Atrial Fibrillation CAD HTN DM Hypothyroidism Diverticulosis Anemia - continue antibiotics per ID - f/u cultures - inhaled bronchodilators - O2 to keep SpO2 >90% - continue lasix - monitor urine output, creatinine - monitor lytes - rate controlled - continue anticoagulation - can use PMV as tolerated - spontaneous breathing trials when stable - enteral feeds - DVT/GI prophylaxis - can monitor on vent floor
[2019-09-10 12:51] LABS: ALBUMIN 1.8 g/dl (3.4-5.0); BILIRUBIN,TOTAL 0.3 mg/dL (0.2-1); BLOOD UREA NITROGEN 23.8 mg/dL (7-18); CREATININE 0.6 mg/dL (0.55-1.3); MAGNESIUM 2.1 mg/dL (1.8-2.4); PHOSPHOROUS 2.8 mg/dL (2.5-4.9); POTASSIUM 4.2 mmol/L (3.5-5.1)
--- NOTE | 2019-09-10 14:20 | PN ---
Physical Exam: SUBJECTIVE: Patient seen and examined increased edema in lower extremities OBJECTIVE: Vital Signs Period Temp Pulse Resp BP Sys/Wynne Pulse Ox Last 24 Hr 97.6 F-98.8 F 66-111 13-28 106-162/56-90 100-100 GENERAL: The patient is awake, alert, in no acute distress. HEAD: Normal with no signs of trauma. EYES: PERRL, extraocular movements intact, sclera anicteric ENT: Ears normal, nares patent, oropharynx clear without exudates. NECK: Trachea midline, full range of motion, supple. tracheostomy attached to vent LUNGS: rhonchi, crackles at bases. HEART: Regular rate and rhythm, S1, S2 without murmur, rub or gallop. ABDOMEN: Soft, nontender, nondistended, normoactive bowel sounds, no guarding, EXTREMITIES: 2+ pulses, warm, well-perfused, +edema. NEUROLOGICAL: Cranial nerves II through XII grossly intact. non-verbal (trached) SKIN: Warm, dry, normal turgor, no rashes or lesions noted Laboratory Results - last 24 hr 09/06/19 09/09/19 09/09/19 17:00 17:30 17:41 WBC 12.1 H RBC 2.92 L Hgb 8.4 L Hct 26.5 L MCV 90.8 MCH 29.0 MCHC 31.9 L RDW 17.9 H Plt Count 282 MPV 9.2 Sodium Potassium Chloride Carbon Dioxide Anion Gap BUN Creatinine Est GFR (CKD-EPI)AfAm Est GFR (CKD-EPI)NonAf POC Glucometer 223 Random Glucose Calcium Phosphorus Magnesium Total Bilirubin AST ALT Alkaline Phosphatase Total Protein Albumin Stool Occult Blood Crossmatch See Detail 09/09/19 09/09/19 09/10/19 18:55 21:27 06:33 WBC RBC Hgb Hct MCV MCH MCHC RDW Plt Count MPV Sodium Potassium Chloride Carbon Dioxide Anion Gap BUN Creatinine Est GFR (CKD-EPI)AfAm Est GFR (CKD-EPI)NonAf POC Glucometer 242 257 Random Glucose Calcium Phosphorus Magnesium Total Bilirubin AST ALT Alkaline Phosphatase Total Protein Albumin Stool Occult Blood Negative Crossmatch 09/10/19 11:45 WBC RBC Hgb Hct MCV MCH MCHC RDW Plt Count MPV Sodium 140 Potassium 4.2 Chloride 101 Carbon Dioxide 36 H Anion Gap 2 L BUN 23.8 H Creatinine 0.6 Est GFR (CKD-EPI)AfAm 110.83 Est GFR (CKD-EPI)NonAf 95.63 POC Glucometer Random Glucose 249 H Calcium 8.0 L Phosphorus 2.8 Magnesium 2.1 Total Bilirubin 0.3 AST 28 ALT 63 H Alkaline Phosphatase 134 H Total Protein 6.0 L Albumin 1.8 L Stool Occult Blood Crossmatch Active Medications Generic Name Dose Route Start Last Admin Trade Name Freq PRN Reason Stop Dose Admin Acetaminophen 650 mg 09/09/19 13:09 09/09/19 13:19 Tylenol - PO 650 mg Q6H PRN Administration FEVER Albuterol/Ipratropium 1 amp 09/07/19 16:00 09/10/19 11:37 Duoneb - NEB 1 amp RQID [facility] Administration Amiodarone HCl 200 mg 09/07/19 10:00 09/10/19 10:13 Cordarone - PO 200 mg DAILY [facility] Administration Apixaban 5 mg 09/07/19 10:00 09/10/19 10:13 Eliquis - PO 5 mg BID [facility] Administration Atorvastatin Calcium 80 mg 09/07/19 22:00 09/09/19 22:32 Lipitor - PO 80 mg HS [facility] Administration Chlorhexidine Gluconate 1 applic 09/07/19 22:00 09/09/19 22:32 Hibiclens For Decolonization - TP 1 applic HS [facility] Administration Piperacillin Sod/Tazobactam 50 mls @ 100 mls/hr 09/07/19 18:00 09/10/19 10:14 Sod 3.375 gm/ Dextrose IVPB 100 mls/hr Q8H-IV [facility] Administration Protocol Vancomycin HCl 1,000 mg in 250 mls @ 166.667 mls/hr 09/09/19 17:00 09/10/19 05:18 Vancomycin (Pre-Docked) IVPB 166.667 mls/hr BID@0500,1700 [facility] Administration Protocol Insulin Aspart 1 vial 09/06/19 22:00 09/10/19 06:41 Novolog Vial Sliding Scale - SQ 6 units ACHS [facility] Administration Protocol Levothyroxine Sodium 50 mcg 09/07/19 07:00 09/10/19 06:41 Synthroid - PO 50 mcg ACBK [facility] Administration Metoprolol Tartrate 25 mg 09/07/19 10:00 09/10/19 10:14 Lopressor - PO 25 mg DAILY [facility] Administration Mupirocin 1 applic 09/07/19 22:00 09/10/19 10:26 Bactroban Ointment (For Decolonization) - NS 09/12/19 21:59 1 applic BID [facility] Administration ASSESSMENT/PLAN: 79 M PMH Afib (Eliquis 5mg BID), cardiac stent placements, COPD, DM, HTN, GERD, Diverticulosis, gout, chronic anemia, bladder &renal stones, hypothyroidism, multiple basal cell carcinomas (s/p excision) presenting with pneumonia. Neuro Patient alert today -Do not give ativan for agitation -Seroquel/ haldol preferable Head CT 09/09/2019 moderate atrophy no focal intracranial lesion or hemorrhage Cardiovascular -Hx of A-fib. Continuing Eliquis -Continue metoprolol 25mg, amiodarone 200 mg, lipitor -Continue telemetry monitoring Pulmonary -Bilateral infiltrates CXR still showing congestive changes -Continue duonebs QID -Trach changed yesterday ID -sputum culure for pseudomonas, mrsa and klebsiella pneumoniae esbl -switching from zosyn to meropenem because of zosyn resistant Klebsiella ebsl GI -Abdomen U/S shows fatty liver -Restart feeds -Glucerna 1.5 PEG -modified barified swallow today could not swallow -will remain NPO Renal -hold fluids -Lasix 40 mg IV bid today fo peripheral edema Endo -Hx of hypothyroid and DM -Synthroid -ISS Heme/Onc Hb yesterday evening 8.4 goal Hgb is 8 due to CAD hx transfuse at <7 F: no fluids at this time E: Monitor CMP N: Tube feeds glucerna Dispo: Transfer to Med/Surg ATTENDING PHYSICIAN STATEMENT I saw and evaluated the patient. I reviewed the resident's note and discussed the case with the resident. I agree with the resident's findings and plan as documented. Visit type - Emergency Visit Emergency Visit: Yes ED Registration Date: 09/06/19 Care time: The patient presented to the Emergency Department on the above date and was hospitalized for further evaluation of their emergent condition. - New Patient This patient is new to me today: No - Critical Care Critical Care patient: No - Discharge Referral Referred to [facility] No ATTENDING PHYSICIAN STATEMENT I saw and evaluated the patient. I reviewed the resident's note and discussed the case with the resident. I agree with the resident's findings and plan as documented. SUBJECTIVE: OBJECTIVE: ASSESSMENT AND PLAN:
[2019-09-10] MEDS ORDERED: MEROPENEM 1 GM in DEXTROSE 5%-WATER 100 ML IVPB SCH (15:00)
--- NOTE | 2019-09-10 15:14 | PN ---
Progress Note, POT WASHER - Note Progress Note: Pt on PMV, with excellent voicing and tolerance. Educated pt and her on results of mbs, with silent aspiration demonstrated. Case discussed with medical team. Suggest daily use of PMV, as tolerated, increasing time on valve to increase upper airway function, voicing,communication, socialization, swallowing and to expedite weaning Intensive swallowing tx with use of PMV Suggest no PO trials until MBS repeated. Use PMV-Suggest daily use of PMV, as tolerated, increasing time on valve to increase upper airway function, voicing,communication, socialization, swallowing and to expedite weaning 1-Take deep breath and push out voice LOUD eg Breathe in, shout 1, Breathe in, shout 2, Breathe in, shout 3, Breathe in, shout 4, ........... 2 syllables- eg Saturday, Saturday,..... Multisyllabic words- September, October, .... Short sentences- I love you, Please sit down etc 2-Breathe in say sudden loud EEEEE Breathe in and then hold EEEE as long as you can-Watch the clock- Try to increase breath support 3- Swallow saliva, HARD, With effort 4- Tongue out, hold b/n your lips and swallow - Several times a day 5- Cough, re-swallow 6- Push tongue up against roof of mouth, hold 5 sec, relax, repeat 10 times 7- Vocal slide- Say eeeee low pitch, slide to high pitch to elevate larynx.
--- NOTE | 2019-09-10 15:23 | PN ---
Progress Note, DRIER AND EVAPORATOR OPERATOR - Note Progress Note: Pt/Family education Use PMV-Suggest daily use of PMV, as tolerated, increasing time on valve to increase upper airway function, voicing,communication, socialization, swallowing and to expedite weaning 1-Take deep breath and push out voice LOUD eg Breathe in, shout 1, Breathe in, shout 2, Breathe in, shout 3, Breathe in, shout 4, ........... 2 syllables- eg Saturday, Saturday,..... Multisyllabic words- September, October, .... Short sentences- I love you, Please sit down etc 2-Breathe in say sudden loud EEEEE Breathe in and then hold EEEE as long as you can-Watch the clock- Try to increase breath support 3- Swallow saliva, HARD, With effort 4- Tongue out, hold b/n your lips and swallow - Several times a day 5- Cough, re-swallow 6- Push tongue up against roof of mouth, hold 5 sec, relax, repeat 10 times 7- Vocal slide- Say eeeee low pitch, slide to high pitch to elevate larynx.
[2019-09-10] MEDS: ACETAMINOPHEN 650 MG/20.3 ML ORAL SOLUTION (CUPS) PO PRN (15:40)
--- NOTE | 2019-09-10 15:44 | PN ---
Progress Note, Physician History of Present Illness: AWAKE, ALERT NO ACUTE DISTRESS BREATHING NON-LABORED AFEBRILE MILD LEUKOCYTOSIS SPUTUM MRSA/ PSEUDOMONAS/ ESBL - Current Medication List Current Medications: Active Medications Acetaminophen (Tylenol Oral Solution -) 650 mg PO Q4H PRN PRN Reason: PAIN LEVEL 6-10 Albuterol/Ipratropium (Duoneb -) 1 amp NEB RQID [facility] Last Admin: 09/10/19 11:37 Dose: 1 amp Amiodarone HCl (Cordarone -) 200 mg PO DAILY [facility] Last Admin: 09/10/19 10:13 Dose: 200 mg Apixaban (Eliquis -) 5 mg PO BID [facility] Last Admin: 09/10/19 10:13 Dose: 5 mg Atorvastatin Calcium (Lipitor -) 80 mg PO [facility] Last Admin: 09/09/19 22:32 Dose: 80 mg Chlorhexidine Gluconate (Hibiclens For Decolonization -) 1 applic TP [facility] Last Admin: 09/09/19 22:32 Dose: 1 applic Vancomycin HCl (Vancomycin (Pre-Docked)) 1,000 mg in 250 mls @ 166.667 mls/hr IVPB BID@0500,1700 [facility]; Protocol Last Admin: 09/10/19 05:18 Dose: 166.667 mls/hr Meropenem 1 gm/ Dextrose 100 mls @ 200 mls/hr IVPB Q8H-IV [facility] Meropenem 1 gm/ Dextrose 100 mls @ 200 mls/hr IVPB Q8H-IV [facility] Stop: 09/11/19 14:59 Insulin Aspart (Novolog Vial Sliding Scale -) 1 vial SQ ACHS [facility]; Protocol Last Admin: 09/10/19 15:05 Dose: 6 units Levothyroxine Sodium (Synthroid -) 50 mcg PO ACBK [facility] Last Admin: 09/10/19 06:41 Dose: 50 mcg Metoprolol Tartrate (Lopressor -) 25 mg PO DAILY [facility] Last Admin: 09/10/19 10:14 Dose: 25 mg Mupirocin (Bactroban Ointment (For Decolonization) -) 1 applic NS BID [facility] Stop: 09/12/19 21:59 Last Admin: 09/10/19 10:26 Dose: 1 applic - Objective Vital Signs: Vital Signs Temperature 98.7 F 09/10/19 13:00 Pulse Rate 97 H 01/09/20 13:00 Respiratory Rate 09/10/19 13:49 Blood Pressure 153/90 09/10/19 13:00 O2 Sat by Pulse Oximetry (%) 100 09/10/19 14:30 Constitutional: Yes: No Distress Eyes: Yes: Conjunctiva Clear Cardiovascular: Yes: Regular Rate and Rhythm, S1, S2 Respiratory: Yes: Diminished Gastrointestinal: Yes: Normal Bowel Sounds, Soft. No: Tenderness Labs: CBC, BMP 09/09/19 17:30 09/10/19 11:45 INR, PTT INR 1.74 (0.83-1.09) H 09/06/19 17:00 Assessment/Plan PNEUMONIA SEPSIS SECONDARY TO PNEUMONIA CHRONIC RESPIRATORY FAILURE LEUKOCYTOSIS CONTINUE MEROPENEM/ VANCOMYCIN
[2019-09-10] MEDS ORDERED: MEROPENEM 1 GM VIAL (RESTRICTED TO ID) IVPB ONE ×2 (16:19→20:42)
[2019-09-10] MEDS ORDERED: DEXTROSE 5%-WATER 100 ML IVPB ONE ×2 (16:19→20:42)
[2019-09-10 17:12] LABS: BASO % 0.5 % (0-2.0); HEMATOCRIT 29.3 % (35.4-49); HEMOGLOBIN 9.2 GM/dL (11.7-16.9); LYMPH % 7.9 % (8-40); MCH 28.4 pg (25.7-33.7); MCHC 31.5 g/dl (32.0-35.9); MEAN CELL VOLUME 90.3 fl (80-96); MEAN PLT VOLUME 8.9 fl (7.5-11.1); MONO % 8.6 % (3.8-10.2); PLATELET COUNT 338 K/MM3 (134-434); RBC 3.25 M/mm3 (4.00-5.60); RDW 17.7 % (11.9-15.9); WHITE BLOOD COUNT 15.5 K/mm3 (4.0-10.0)
[2019-09-10] MEDS: MEROPENEM 1 GM in DEXTROSE 5%-WATER 100 ML IVPB SCH (17:28)
[2019-09-10] MEDS: ATORVASTATIN CA 40 MG TABLET (FP) PO SCH (21:12)
[2019-09-10] MEDS: CHLORHEXIDINE GLUCONATE 4% CLEANSER FOR DECOLONIZATION TP SCH (21:17)
[2019-09-11] MEDS: MEROPENEM 1 GM in DEXTROSE 5%-WATER 100 ML IVPB SCH ×3 (01:14→18:17)
[2019-09-11] MEDS: VANCOMYCIN 1 GRAM (PRE-DOCKED) 1,000 MG/250 ML BAG IVPB SCH ×2 (05:49→16:43)
[2019-09-11] MEDS: LEVOTHYROXINE NA 50 MCG TABLET (FP) PO SCH (06:04)
[2019-09-11] MEDS: INSULIN SLIDING SCALE (NOVOLOG) 1 VIAL SQ SCH ×4 (06:04→21:26)
[2019-09-11 06:45] LABS: BASO % 0.5 % (0-2.0); EOS % 4.2 % (0-4.5); HEMATOCRIT 28.7 % (35.4-49); HEMOGLOBIN 9.2 GM/dL (11.7-16.9); LYMPH % 7.2 % (8-40); MCH 28.9 pg (25.7-33.7); MCHC 32.2 g/dl (32.0-35.9); MEAN CELL VOLUME 89.5 fl (80-96); MEAN PLT VOLUME 8.8 fl (7.5-11.1); MONO % 8.5 % (3.8-10.2); NEUT % 79.6 % (42.8-82.8); PLATELET COUNT 380 K/MM3 (134-434); RDW 17.6 % (11.9-15.9); WHITE BLOOD COUNT 13.5 K/mm3 (4.0-10.0)
[2019-09-11 06:55] LABS: ALBUMIN 1.8 g/dl (3.4-5.0); BILIRUBIN,TOTAL 0.3 mg/dL (0.2-1); BLOOD UREA NITROGEN 22.9 mg/dL (7-18); CALCIUM 8.1 mg/dL (8.5-10.1); CREATININE 0.6 mg/dL (0.55-1.3); POTASSIUM 4.4 mmol/L (3.5-5.1); TOT PROT 6.3 g/dl (6.4-8.2)
[2019-09-11] MEDS ORDERED: DEXTROSE 5%-WATER 100 ML IVPB ONE ×2 (07:56→17:46)
[2019-09-11] MEDS ORDERED: MEROPENEM 1 GM VIAL (RESTRICTED TO ID) IVPB ONE ×2 (07:56→17:46)
[2019-09-11] MEDS: ALBUTEROL SO4 2.5/IPRATROPIUM 0.5 INH SOL 3 ML VIAL.NEB. NEB SCH ×4 (08:15→21:45)
--- NOTE | 2019-09-11 09:30 | PN ---
Progress Note, Physician - Current Medication List Current Medications: Active Medications Acetaminophen (Tylenol Oral Solution -) 650 mg PO Q4H PRN PRN Reason: PAIN LEVEL 6-10 Last Admin: 09/10/19 15:40 Dose: 650 mg Albuterol/Ipratropium (Duoneb -) 1 amp NEB RQID [facility] Last Admin: 09/11/19 08:15 Dose: 1 amp Amiodarone HCl (Cordarone -) 200 mg PO DAILY [facility] Last Admin: 09/10/19 10:13 Dose: 200 mg Apixaban (Eliquis -) 5 mg PO BID [facility] Last Admin: 09/10/19 21:12 Dose: 5 mg Atorvastatin Calcium (Lipitor -) 80 mg PO HS [facility] Last Admin: 09/10/19 21:12 Dose: 80 mg Chlorhexidine Gluconate (Hibiclens For Decolonization -) 1 applic TP [facility] Last Admin: 09/10/19 21:17 Dose: 1 applic Vancomycin HCl (Vancomycin (Pre-Docked)) 1,000 mg in 250 mls @ 166.667 mls/hr IVPB BID@0500,1700 [facility]; Protocol Last Admin: 09/11/19 05:49 Dose: 166.667 mls/hr Meropenem 1 gm/ Dextrose 100 mls @ 200 mls/hr IVPB Q8H-IV [facility] Last Admin: 09/11/19 01:14 Dose: 200 mls/hr Insulin Aspart (Novolog Vial Sliding Scale -) 1 vial SQ ACHS [facility]; Protocol Last Admin: 09/11/19 06:04 Dose: 6 units Levothyroxine Sodium (Synthroid -) 50 mcg PO ACBK [facility] Last Admin: 09/11/19 06:04 Dose: 50 mcg Metoprolol Tartrate (Lopressor -) 25 mg PO DAILY [facility] Last Admin: 09/10/19 10:14 Dose: 25 mg Mupirocin (Bactroban Ointment (For Decolonization) -) 1 applic NS BID [facility] Stop: 09/12/19 21:59 Last Admin: 09/10/19 21:17 Dose: 1 applic - Objective Vital Signs: Vital Signs Temperature 98.3 F 09/11/19 06:00 Pulse Rate 112 H 09/11/19 06:00 Respiratory Rate 24 H 09/11/19 08:16 Blood Pressure 146/68 09/11/19 06:00 O2 Sat by Pulse Oximetry (%) 100 09/10/19 20:16 Cardiovascular: Yes: S1, S2 Respiratory: Yes: Diminished, Rales, Wheezes Gastrointestinal: Yes: Normal Bowel Sounds, Soft Labs: CBC, BMP 09/11/19 05:35 09/11/19 05:35 INR, PTT INR 1.74 (0.83-1.09) H 09/06/19 17:00 Problem List - Problems (1) Paroxysmal A-fib Assessment/Plan: - stable Continue icu Continue BBAlba Code(s): I48.0 - PAROXYSMAL ATRIAL FIBRILLATION (2) Sepsis Assessment/Plan: Likely due to Pneumonia Zosyn and Vancomycin Appreciate ID consult Monitor CBC, BMP Microbiology 09/06/19 17:00 Blood - Peripheral Venous Blood Culture - Preliminary NO GROWTH OBTAINED AFTER 96 HOURS, INCUBATION TO CONTINUE FOR 1 DAYS. 09/06/19 17:15 Blood - Peripheral Venous Blood Culture - Preliminary NO GROWTH OBTAINED AFTER 96 HOURS, INCUBATION TO CONTINUE FOR 1 DAYS. 09/07/19 05:30 Sputum - Endotrachea Suction/Ventilator Gram Stain - Final 09/07/19 05:30 Sputum - Endotrachea Suction/Ventilator Sputum Culture - Final S Aureus Pseudomonas Aeruginosa Klebsiella Pneumoniae - Esbl 09/07/19 05:30 Urine For Antigen Detection Legionella Antigen - Final 09/07/19 05:30 Urine For Antigen Detection Streptococcus pneumoniae Antigen (M - Final 09/07/19 06:30 Urine - Urine Clean Catch Urine Culture - Final NO GROWTH OBTAINED Code(s): A41.9 - SEPSIS, UNSPECIFIED ORGANISM Qualifiers: Sepsis type: sepsis due to unspecified organism Sepsis acute organ dysfunction status: unspecified Qualified Code(s): A41.9 - Sepsis, unspecified organism (3) Pneumonia Assessment/Plan: Zosyn, Vancomycin per ID Appreciate ID consult Monitor CBC, BMP O2- trach-vent Monitor vent settings Duonebs Code(s): J18.9 - PNEUMONIA, UNSPECIFIED ORGANISM Qualifiers: Pneumonia type: due to unspecified organism Laterality: bilateral Lung location: lower lobe of lung Qualified Code(s): J18.9 - Pneumonia, unspecified organism (4) Chronic respiratory failure with hypoxia and hypercapnia Assessment/Plan: s/p Trach- vent dependent Appreciate Pulm consult Monitor Spo2 Duonebs Code(s): J96.11 - CHRONIC RESPIRATORY FAILURE WITH HYPOXIA; J96.12 - CHRONIC RESPIRATORY FAILURE WITH HYPERCAPNIA (5) Anemia Assessment/Plan: prbc monitor labs w/u ordered Code(s): D64.9 - ANEMIA, UNSPECIFIED (6) CHF (congestive heart failure) Assessment/Plan: Continue with iv lasix cxr Code(s): I50.9 - HEART FAILURE, UNSPECIFIED (7) COPD (chronic obstructive pulmonary disease) Assessment/Plan: iv solumedrol nebs Code(s): J44.9 - CHRONIC OBSTRUCTIVE PULMONARY DISEASE, UNSPECIFIED
[2019-09-11] MEDS ORDERED: FUROSEMIDE 40 MG/4 ML INJECTABLE VIAL IVPUSH SCH (10:00)
[2019-09-11] MEDS: AMIODARONE HCL 200 MG TABLET PO SCH (10:30)
[2019-09-11] MEDS: MUPIROCIN 2% TOPICAL OINTMENT FOR DECOLONIZATION NS SCH ×2 (10:30→21:26)
[2019-09-11] MEDS: methylPREDNISolone NA SUCC 40 MG/1 ML VIAL IVPUSH SCH ×3 (10:30→21:18)
[2019-09-11] MEDS: METOPROLOL TARTRATE 25 MG TABLET (FP) PO SCH (10:30)
[2019-09-11] MEDS: APIXABAN 5 MG TABLET PO SCH ×2 (10:30→21:24)
--- NOTE | 2019-09-11 10:36 | PN ---
Progress Note, Physician History of Present Illness: LETHARGIC TODAY NO ACUTE DISTRESS BREATHING NON-LABORED AFEBRILE MILD LEUKOCYTOSIS SPUTUM MRSA/ PSEUDOMONAS/ ESBL - Current Medication List Current Medications: Active Medications Acetaminophen (Tylenol Oral Solution -) 650 mg PO Q4H PRN PRN Reason: PAIN LEVEL 6-10 Last Admin: 09/10/19 15:40 Dose: 650 mg Albuterol/Ipratropium (Duoneb -) 1 amp NEB RQID [facility] Last Admin: 09/11/19 08:15 Dose: 1 amp Amiodarone HCl (Cordarone -) 200 mg PO DAILY [facility] Last Admin: 09/10/19 10:13 Dose: 200 mg Apixaban (Eliquis -) 5 mg PO BID [facility] Last Admin: 09/10/19 21:12 Dose: 5 mg Atorvastatin Calcium (Lipitor -) 80 mg PO HS [facility] Last Admin: 09/10/19 21:12 Dose: 80 mg Chlorhexidine Gluconate (Hibiclens For Decolonization -) 1 applic TP [facility] Last Admin: 09/10/19 21:17 Dose: 1 applic Furosemide (Lasix Injection -) 40 mg IVPUSH BID@0600,1400 [facility] Furosemide (Lasix Injection -) 40 mg IVPUSH DAILY [facility] Vancomycin HCl (Vancomycin (Pre-Docked)) 1,000 mg in 250 mls @ 166.667 mls/hr IVPB BID@0500,1700 [facility]; Protocol Last Admin: 09/11/19 05:49 Dose: 166.667 mls/hr Meropenem 1 gm/ Dextrose 100 mls @ 200 mls/hr IVPB Q8H-IV [facility] Last Admin: 09/11/19 01:14 Dose: 200 mls/hr Insulin Aspart (Novolog Vial Sliding Scale -) 1 vial SQ ACHS [facility]; Protocol Last Admin: 09/11/19 06:04 Dose: 6 units Levothyroxine Sodium (Synthroid -) 50 mcg PO ACBK [facility] Last Admin: 09/11/19 06:04 Dose: 50 mcg Methylprednisolone Sodium Succinate (Solu-Medrol -) 40 mg IVPUSH Q6H-IV [facility] Metoprolol Tartrate (Lopressor -) 25 mg PO DAILY [facility] Last Admin: 09/10/19 10:14 Dose: 25 mg Mupirocin (Bactroban Ointment (For Decolonization) -) 1 applic NS BID [facility] Stop: 09/12/19 21:59 Last Admin: 09/10/19 21:17 Dose: 1 applic - Objective Vital Signs: Vital Signs Temperature 98.3 F 09/11/19 06:00 Pulse Rate 112 H 09/11/19 06:00 Respiratory Rate 24 H 09/11/19 08:16 Blood Pressure 146/68 09/11/19 06:00 O2 Sat by Pulse Oximetry (%) 100 09/10/19 20:16 Constitutional: Yes: No Distress Eyes: Yes: Conjunctiva Clear Cardiovascular: Yes: Regular Rate and Rhythm, Tachycardia, S1, S2 Respiratory: Yes: Diminished Gastrointestinal: Yes: Normal Bowel Sounds, Soft. No: Tenderness Edema: Yes Labs: CBC, BMP 09/11/19 05:35 09/11/19 05:35 INR, PTT INR 1.74 (0.83-1.09) H 09/06/19 17:00 Assessment/Plan PNEUMONIA SEPSIS SECONDARY TO PNEUMONIA + SPUTUM C/S MDRO CHRONIC RESPIRATORY FAILURE LEUKOCYTOSIS CONTINUE MEROPENEM/ VANCOMYCIN CONTACT PRECAUTIONS
--- NOTE | 2019-09-11 10:56 | PN ---
Teaching Attending Note Name of Resident: Wade Larios ATTENDING PHYSICIAN STATEMENT I saw and evaluated the patient. I reviewed the resident's note and discussed the case with the resident. I agree with the resident's findings and plan as documented. SUBJECTIVE: Patient seen and examined in the ICU. Vented, awake. No fevers recorded. Heart rates better controlled. OBJECTIVE: Intake & Output 09/08/19 09/09/19 09/10/19 09/11/19 23:59 23:59 23:59 23:59 Intake Total 2464 3886 6289 1394 Output Total 850 Balance 1614 3886 6289 1394 Weight 185 lb 8 oz 190 lb 11.2 oz 194 lb 11.2 oz Last Vital Signs Temp Pulse Resp BP Pulse Ox 98.3 F 112 H 24 H 146/68 100 09/11/19 06:00 09/11/19 06:00 09/11/19 08:16 09/11/19 06:00 09/10/19 20:16 Active Medications Acetaminophen (Tylenol Oral Solution -) 650 mg PO Q4H PRN PRN Reason: PAIN LEVEL 6-10 Last Admin: 09/10/19 15:40 Dose: 650 mg Albuterol/Ipratropium (Duoneb -) 1 amp NEB RQID [facility] Last Admin: 09/11/19 08:15 Dose: 1 amp Amiodarone HCl (Cordarone -) 200 mg PO DAILY [facility] Last Admin: 09/10/19 10:13 Dose: 200 mg Apixaban (Eliquis -) 5 mg PO BID [facility] Last Admin: 09/10/19 21:12 Dose: 5 mg Atorvastatin Calcium (Lipitor -) 80 mg PO [facility] Last Admin: 09/10/19 21:12 Dose: 80 mg Chlorhexidine Gluconate (Hibiclens For Decolonization -) 1 applic TP [facility] Last Admin: 09/10/19 21:17 Dose: 1 applic Furosemide (Lasix Injection -) 40 mg IVPUSH BID@0600,1400 [facility] Furosemide (Lasix Injection -) 40 mg IVPUSH DAILY [facility] Vancomycin HCl (Vancomycin (Pre-Docked)) 1,000 mg in 250 mls @ 166.667 mls/hr IVPB BID@0500,1700 [facility]; Protocol Last Admin: 09/11/19 05:49 Dose: 166.667 mls/hr Meropenem 1 gm/ Dextrose 100 mls @ 200 mls/hr IVPB Q8H-IV [facility] Last Admin: 09/11/19 01:14 Dose: 200 mls/hr Insulin Aspart (Novolog Vial Sliding Scale -) 1 vial SQ ACHS [facility]; Protocol Last Admin: 09/11/19 06:04 Dose: 6 units Levothyroxine Sodium (Synthroid -) 50 mcg PO ACBK [facility] Last Admin: 09/11/19 06:04 Dose: 50 mcg Methylprednisolone Sodium Succinate (Solu-Medrol -) 40 mg IVPUSH Q6H-IV [facility] Metoprolol Tartrate (Lopressor -) 25 mg PO DAILY [facility] Last Admin: 09/10/19 10:14 Dose: 25 mg Mupirocin (Bactroban Ointment (For Decolonization) -) 1 applic NS BID [facility] Stop: 09/12/19 21:59 Last Admin: 09/10/19 21:17 Dose: 1 applic Gen: vented, awake Heart: irregular Lung: scattered rhonchi Abd: soft, nontender Ext: + edema Laboratory Results - last 24 hr 09/10/19 09/10/19 09/10/19 11:45 14:57 16:45 WBC 15.5 H RBC 3.25 L Hgb 9.2 L Hct 29.3 L MCV 90.3 MCH 28.4 MCHC 31.5 L RDW 17.7 H Plt Count 338 MPV 8.9 Absolute Neuts (auto) 12.4 H Neutrophils % 80.0 Lymphocytes % 7.9 L Monocytes % 8.6 Eosinophils % 3.0 Basophils % 0.5 Nucleated RBC % 0 Sodium 140 Potassium 4.2 Chloride 101 Carbon Dioxide 36 H Anion Gap 2 L BUN 23.8 H Creatinine 0.6 Est GFR (CKD-EPI)AfAm 110.83 Est GFR (CKD-EPI)NonAf 95.63 POC Glucometer 275 Random Glucose 249 H Calcium 8.0 L Phosphorus 2.8 Magnesium 2.1 Total Bilirubin 0.3 AST 28 ALT 63 H Alkaline Phosphatase 134 H Total Protein 6.0 L Albumin 1.8 L 09/10/19 09/10/19 09/11/19 17:37 21:18 05:35 WBC 13.5 H RBC 3.20 L Hgb 9.2 L Hct 28.7 L MCV 89.5 MCH 28.9 MCHC 32.2 RDW 17.6 H Plt Count 380 MPV 8.8 Absolute Neuts (auto) 10.7 H Neutrophils % 79.6 Lymphocytes % 7.2 L Monocytes % 8.5 Eosinophils % 4.2 Basophils % 0.5 Nucleated RBC % 0 Sodium Potassium Chloride Carbon Dioxide Anion Gap BUN Creatinine Est GFR (CKD-EPI)AfAm Est GFR (CKD-EPI)NonAf POC Glucometer 271 305 Random Glucose Calcium Phosphorus Magnesium Total Bilirubin AST ALT Alkaline Phosphatase Total Protein Albumin 09/11/19 09/11/19 05:35 05:52 WBC RBC Hgb Hct MCV MCH MCHC RDW Plt Count MPV Absolute Neuts (auto) Neutrophils % Lymphocytes % Monocytes % Eosinophils % Basophils % Nucleated RBC % Sodium 138 Potassium 4.4 Chloride 97 L Carbon Dioxide 37 H Anion Gap 4 L BUN 22.9 H Creatinine 0.6 Est GFR (CKD-EPI)AfAm 110.83 Est GFR (CKD-EPI)NonAf 95.63 POC Glucometer 278 Random Glucose 265 H Calcium 8.1 L Phosphorus 3.0 Magnesium 2.0 Total Bilirubin 0.3 AST 24 ALT 53 Alkaline Phosphatase 144 H Total Protein 6.3 L Albumin 1.8 L ASSESSMENT AND PLAN: Chronic Respiratory Failure Pneumonia Sepsis COPD Atrial Fibrillation CAD HTN DM Hypothyroidism Diverticulosis Anemia - Antibiotics per ID - f/u final cultures - inhaled bronchodilators - O2 to keep SpO2 >90% - Lasix - monitor urine output, creatinine - monitor lytes - rate controlled - continue anticoagulation - can use PMV as tolerated - spontaneous breathing trials as tolerated - enteral feeds - DVT/GI prophylaxis - Vent floor monitoring Dr Silva
--- NOTE | 2019-09-11 11:48 | PN ---
Physical Exam: SUBJECTIVE: Patient seen and examined in the morning. No acute events overnight , no events on cardiac monitoring. Patient denies chest pain, abdominal pain, and generalized myalgias. OBJECTIVE: Vital Signs Period Temp Pulse Resp BP Sys/Wynne Pulse Ox Last 24 Hr 98 F-98.7 F 80-112 14-28 93-158/45-90 100-100 GENERAL: Alert and oriented . Not in acute distress. HEENT: Trached to vent. LUNGS: Diffuse crackles HEART: normal rate and rhythm, s1 s2 present, no murmurs rubs or gallops ABDOMEN: Soft, nontender, not distended, normoactive bowel sounds, no guarding, no rebound, no masses. No hepatomegaly or splenomegaly. EXTREMITIES: Peripheral pulses present, 2+. Non edematous. NEUROLOGICAL: Cranial nerves II-XII intact. PSYCHIATRIC: Cooperative. Good eye contact. Appropriate mood and affect. Laboratory Results - last 24 hr 09/10/19 09/10/19 09/10/19 11:45 14:57 16:45 WBC 15.5 H RBC 3.25 L Hgb 9.2 L Hct 29.3 L MCV 90.3 MCH 28.4 MCHC 31.5 L RDW 17.7 H Plt Count 338 MPV 8.9 Absolute Neuts (auto) 12.4 H Neutrophils % 80.0 Lymphocytes % 7.9 L Monocytes % 8.6 Eosinophils % 3.0 Basophils % 0.5 Nucleated RBC % 0 Sodium 140 Potassium 4.2 Chloride 101 Carbon Dioxide 36 H Anion Gap 2 L BUN 23.8 H Creatinine 0.6 Est GFR (CKD-EPI)AfAm 110.83 Est GFR (CKD-EPI)NonAf 95.63 POC Glucometer 275 Random Glucose 249 H Calcium 8.0 L Phosphorus 2.8 Magnesium 2.1 Total Bilirubin 0.3 AST 28 ALT 63 H Alkaline Phosphatase 134 H Total Protein 6.0 L Albumin 1.8 L 09/10/19 09/10/19 09/11/19 17:37 21:18 05:35 WBC 13.5 H RBC 3.20 L Hgb 9.2 L Hct 28.7 L MCV 89.5 MCH 28.9 MCHC 32.2 RDW 17.6 H Plt Count 380 MPV 8.8 Absolute Neuts (auto) 10.7 H Neutrophils % 79.6 Lymphocytes % 7.2 L Monocytes % 8.5 Eosinophils % 4.2 Basophils % 0.5 Nucleated RBC % 0 Sodium Potassium Chloride Carbon Dioxide Anion Gap BUN Creatinine Est GFR (CKD-EPI)AfAm Est GFR (CKD-EPI)NonAf POC Glucometer 271 305 Random Glucose Calcium Phosphorus Magnesium Total Bilirubin AST ALT Alkaline Phosphatase Total Protein Albumin 09/11/19 09/11/19 05:35 05:52 WBC RBC Hgb Hct MCV MCH MCHC RDW Plt Count MPV Absolute Neuts (auto) Neutrophils % Lymphocytes % Monocytes % Eosinophils % Basophils % Nucleated RBC % Sodium 138 Potassium 4.4 Chloride 97 L Carbon Dioxide 37 H Anion Gap 4 L BUN 22.9 H Creatinine 0.6 Est GFR (CKD-EPI)AfAm 110.83 Est GFR (CKD-EPI)NonAf 95.63 POC Glucometer 278 Random Glucose 265 H Calcium 8.1 L Phosphorus 3.0 Magnesium 2.0 Total Bilirubin 0.3 AST 24 ALT 53 Alkaline Phosphatase 144 H Total Protein 6.3 L Albumin 1.8 L Active Medications Generic Name Dose Route Start Last Admin Trade Name Freq PRN Reason Stop Dose Admin Acetaminophen 650 mg 09/10/19 15:32 09/10/19 15:40 Tylenol Oral Solution - PO 650 mg Q4H PRN Administration PAIN LEVEL 6-10 Albuterol/Ipratropium 1 amp 09/07/19 16:00 09/11/19 11:39 Duoneb - NEB 1 amp RQID [facility] Administration Amiodarone HCl 200 mg 09/07/19 10:00 09/10/19 10:13 Cordarone - PO 200 mg DAILY [facility] Administration Apixaban 5 mg 09/07/19 10:00 09/10/19 21:12 Eliquis - PO 5 mg BID [facility] Administration Atorvastatin Calcium 80 mg 09/07/19 22:00 09/10/19 21:12 Lipitor - PO 80 mg HS [facility] Administration Chlorhexidine Gluconate 1 applic 09/07/19 22:00 09/10/19 21:17 Hibiclens For Decolonization - TP 1 applic HS [facility] Administration Furosemide 40 mg 09/11/19 14:00 Lasix Injection - IVPUSH BID@0600,1400 [facility] Furosemide 40 mg 09/11/19 10:00 Lasix Injection - IVPUSH DAILY [facility] Vancomycin HCl 1,000 mg in 250 mls @ 166.667 mls/hr 09/09/19 17:00 09/11/19 05:49 Vancomycin (Pre-Docked) IVPB 166.667 mls/hr BID@0500,1700 [facility] Administration Protocol Meropenem 1 gm/ Dextrose 100 mls @ 200 mls/hr 09/10/19 18:00 09/11/19 01:14 IVPB 200 mls/hr Q8H-IV [facility] Administration Insulin Aspart 1 vial 09/06/19 22:00 09/11/19 06:04 Novolog Vial Sliding Scale - SQ 6 units ACHS [facility] Administration Protocol Levothyroxine Sodium 50 mcg 09/07/19 07:00 09/11/19 06:04 Synthroid - PO 50 mcg ACBK [facility] Administration Methylprednisolone Sodium Succinate 40 mg 09/11/19 09:30 Solu-Medrol - IVPUSH Q6H-IV [facility] Metoprolol Tartrate 25 mg 09/07/19 10:00 09/10/19 10:14 Lopressor - PO 25 mg DAILY [facility] Administration Mupirocin 1 applic 09/07/19 22:00 09/10/19 21:17 Bactroban Ointment (For Decolonization) - NS 09/12/19 21:59 1 applic BID [facility] Administration ASSESSMENT/PLAN: 79 M PMH Afib (Eliquis 5mg BID), cardiac stent placements, COPD, DM, HTN, GERD, Diverticulosis, gout, chronic anemia, bladder &renal stones, hypothyroidism, multiple basal cell carcinomas (s/p excision) presenting with pneumonia. Neuro - noted that patient was Altered at NH. Is a sign of infection for him. -Patient is AOx3 today Cardiovascular -Hx of A-fib. Continuing Eliquis -EKG NSR, PVCs, PAC rate 100 bpm, QTc 410 no signs of ischemia -Continue metoprolol 25mg, amiodarone 200 mg, lipitor, lasix 40 BID -Continue telemetry monitoring Pulmonary -Hx of Afib on Eliquis -Patient has history of LLL infiltrate -Patient has new infiltrate in right lung -Continue duonebs QID -Passy adalgisa valve as tolerated ID -Continue Meropenem and zosyn -Sputum culture positive of MRSA and pseudomonas, Klebsiella ESBL. -F/U Vanc trough. GI -Abdomen U/S shows fatty liver -Restarted feeds -Glucerna 1.5 PEG -Swallow eval with modified barium completed. Patient will be NPO. Renal -Lasix 40 BID Endo -Hx of hypothyroid and DM -Synthroid -ISS F: No fluids E: Monitor CMP N: Tube feeds glucerna. NPO Dispo: Transfer to Med/Surg Visit type - Emergency Visit Emergency Visit: Yes ED Registration Date: 09/06/19 Care time: The patient presented to the Emergency Department on the above date and was hospitalized for further evaluation of their emergent condition. - New Patient This patient is new to me today: No - Critical Care Critical Care patient: Yes Total Critical Care Time (in minutes): 45 Critical Care Statement: The care of this patient involved high complexity decision making to prevent further life threatening deterioration of the patient 's condition and/or to evaluate & treat vital organ system(s) failure or risk of failure. ATTENDING PHYSICIAN STATEMENT I saw and evaluated the patient. I reviewed the resident's note and discussed the case with the resident. I agree with the resident's findings and plan as documented. SUBJECTIVE: OBJECTIVE: ASSESSMENT AND PLAN:
--- NOTE | 2019-09-11 14:00 | PN ---
Progress Note, [employer] - Note Progress Note: Selected Entries 09/11/19 09/11/19 09/11/19 02:00 06:00 10:00 Supper NPO Temperature 98.5 F 98.3 F Laboratory Tests 09/10/19 09/11/19 16:45 05:35 WBC 15.5 H 13.5 H Exercises provided to pt for practice. Reviewed importance of speech/swallowing exercises with pt's Pt unable to tolerate PMV today, per RT, with increased RR. Agitated/confused .
[2019-09-11] MEDS: FUROSEMIDE 40 MG/4 ML INJECTABLE VIAL IVPUSH SCH (14:21)
[2019-09-11] MEDS: CHLORHEXIDINE GLUCONATE 4% CLEANSER FOR DECOLONIZATION TP SCH (21:24)
[2019-09-11] MEDS: ATORVASTATIN CA 40 MG TABLET (FP) PO SCH (21:25)
[2019-09-12] MEDS: ACETAMINOPHEN 650 MG/20.3 ML ORAL SOLUTION (CUPS) PO PRN (00:45)
[2019-09-12] MEDS ORDERED: DEXTROSE 5%-WATER 100 ML IVPB ONE ×3 (01:02→16:57)
[2019-09-12] MEDS ORDERED: MEROPENEM 1 GM VIAL (RESTRICTED TO ID) IVPB ONE ×3 (01:02→16:57)
[2019-09-12] MEDS: methylPREDNISolone NA SUCC 40 MG/1 ML VIAL IVPUSH SCH ×3 (02:38→23:03)
[2019-09-12] MEDS: MEROPENEM 1 GM in DEXTROSE 5%-WATER 100 ML IVPB SCH ×3 (02:38→18:51)
[2019-09-12] MEDS: VANCOMYCIN 1 GRAM (PRE-DOCKED) 1,000 MG/250 ML BAG IVPB SCH ×2 (05:04→17:22)
[2019-09-12] MEDS: FUROSEMIDE 40 MG/4 ML INJECTABLE VIAL IVPUSH SCH ×2 (06:30→15:14)
[2019-09-12] MEDS: INSULIN SLIDING SCALE (NOVOLOG) 1 VIAL SQ SCH ×4 (06:30→23:10)
[2019-09-12] MEDS: LEVOTHYROXINE NA 50 MCG TABLET (FP) PO SCH (06:33)
[2019-09-12] MEDS ORDERED: INSULIN (NOVOLOG) ASPART 100 UNITS/ML 10ML VIAL ONE ×2 (07:31→09:18)
[2019-09-12] MEDS: ALBUTEROL SO4 2.5/IPRATROPIUM 0.5 INH SOL 3 ML VIAL.NEB. NEB SCH ×4 (08:00→20:05)
[2019-09-12 08:24] LABS: BASO % 0.1 % (0-2.0); HEMOGLOBIN 8.7 GM/dL (11.7-16.9); LYMPH % 3.1 % (8-40); MCH 29.3 pg (25.7-33.7); MCHC 32.2 g/dl (32.0-35.9); MEAN CELL VOLUME 90.9 fl (80-96); MONO % 1.5 % (3.8-10.2); NEUT % 95.3 % (42.8-82.8); PLATELET COUNT 354 K/MM3 (134-434); RBC 2.97 M/mm3 (4.00-5.60); RDW 17.5 % (11.9-15.9); WHITE BLOOD COUNT 14.2 K/mm3 (4.0-10.0)
[2019-09-12 08:59] LABS: ALBUMIN 1.9 g/dl (3.4-5.0); BILIRUBIN,TOTAL 0.5 mg/dL (0.2-1); BLOOD UREA NITROGEN 33.5 mg/dL (7-18); CALCIUM 8.4 mg/dL (8.5-10.1); CREATININE 0.8 mg/dL (0.55-1.3); POTASSIUM 4.2 mmol/L (3.5-5.1); TOT PROT 6.2 g/dl (6.4-8.2)
[2019-09-12] MEDS ORDERED: INSULIN (NOVOLOG) ASPART 100 UNITS/ML 10ML VIAL SQ ONE (09:30)
[2019-09-12] MEDS ORDERED: MUPIROCIN 2% TOPICAL OINTMENT FOR DECOLONIZATION NS SCH (10:00)
--- NOTE | 2019-09-12 10:10 | PN ---
Progress Note, Physician - Current Medication List Current Medications: Active Medications Acetaminophen (Tylenol Oral Solution -) 650 mg PO Q4H PRN PRN Reason: PAIN LEVEL 6-10 Last Admin: 09/12/19 00:45 Dose: 650 mg Albuterol/Ipratropium (Duoneb -) 1 amp NEB RQID [facility] Last Admin: 09/12/19 08:00 Dose: 1 amp Amiodarone HCl (Cordarone -) 200 mg PO DAILY [facility] Apixaban (Eliquis -) 5 mg PO BID [facility] Atorvastatin Calcium (Lipitor -) 80 mg PO HS [facility] Furosemide (Lasix Injection -) 40 mg IVPUSH BID@0600,1400 [facility] Last Admin: 09/12/19 06:30 Dose: 40 mg Vancomycin HCl (Vancomycin (Pre-Docked)) 1,000 mg in 250 mls @ 166.667 mls/hr IVPB BID@0500,1700 [facility]; Protocol Last Admin: 09/12/19 05:04 Dose: 166.667 mls/hr Meropenem 1 gm/ Dextrose 100 mls @ 200 mls/hr IVPB Q8H-IV [facility] Last Admin: 09/12/19 02:38 Dose: 200 mls/hr Insulin Aspart (Novolog Vial Sliding Scale -) 1 vial SQ ACHS [facility]; Protocol Last Admin: 09/12/19 06:30 Dose: 10 units Levothyroxine Sodium (Synthroid -) 50 mcg PO ACBK [facility] Last Admin: 09/12/19 06:33 Dose: 50 mcg Methylprednisolone Sodium Succinate (Solu-Medrol -) 40 mg IVPUSH Q6H-IV [facility] Last Admin: 09/12/19 02:38 Dose: 40 mg Metoprolol Tartrate (Lopressor -) 25 mg PO DAILY [facility] - Objective Vital Signs: Vital Signs Temperature 98.6 F 09/12/19 06:00 Pulse Rate 70 09/12/19 06:00 Respiratory Rate 18 09/12/19 09:00 Blood Pressure 150/71 09/12/19 06:00 O2 Sat by Pulse Oximetry (%) 99 09/12/19 04:20 Cardiovascular: Yes: S1, S2 Respiratory: Yes: Mechanically Ventilated Gastrointestinal: Yes: Normal Bowel Sounds, Soft Labs: CBC, BMP 09/12/19 07:37 09/12/19 07:37 INR, PTT INR 1.74 (0.83-1.09) H 09/06/19 17:00 Problem List - Problems (1) Paroxysmal A-fib Assessment/Plan: - stable Continue BB, Eliquis Code(s): I48.0 - PAROXYSMAL ATRIAL FIBRILLATION (2) Sepsis Assessment/Plan: Likely due to Pneumonia Zosyn and Vancomycin Appreciate ID consult Monitor CBC, BMP Microbiology 09/06/19 17:00 Blood - Peripheral Venous Blood Culture - Final NO GROWTH AFTER 5 DAYS INCUBATION 09/06/19 17:15 Blood - Peripheral Venous Blood Culture - Final NO GROWTH AFTER 5 DAYS INCUBATION 09/07/19 05:30 Sputum - Endotrachea Suction/Ventilator Gram Stain - Final 09/07/19 05:30 Sputum - Endotrachea Suction/Ventilator Sputum Culture - Final S Aureus Pseudomonas Aeruginosa Klebsiella Pneumoniae - Esbl 09/07/19 05:30 Urine For Antigen Detection Legionella Antigen - Final 09/07/19 05:30 Urine For Antigen Detection Streptococcus pneumoniae Antigen (M - Final 09/07/19 06:30 Urine - Urine Clean Catch Urine Culture - Final NO GROWTH OBTAINED Code(s): A41.9 - SEPSIS, UNSPECIFIED ORGANISM Qualifiers: Sepsis type: sepsis due to unspecified organism Sepsis acute organ dysfunction status: unspecified Qualified Code(s): A41.9 - Sepsis, unspecified organism (3) Pneumonia Assessment/Plan: Zosyn, Vancomycin per ID Appreciate ID consult Monitor CBC, BMP O2- trach-vent Monitor vent settings Duonebs Code(s): J18.9 - PNEUMONIA, UNSPECIFIED ORGANISM Qualifiers: Pneumonia type: due to unspecified organism Laterality: bilateral Lung location: lower lobe of lung Qualified Code(s): J18.9 - Pneumonia, unspecified organism (4) Chronic respiratory failure with hypoxia and hypercapnia Assessment/Plan: s/p Trach- vent dependent Appreciate Pulm consult Monitor Spo2 Duonebs Code(s): J96.11 - CHRONIC RESPIRATORY FAILURE WITH HYPOXIA; J96.12 - CHRONIC RESPIRATORY FAILURE WITH HYPERCAPNIA (5) Anemia Assessment/Plan: prbc given-stable now monitor labs w/u ordered Code(s): D64.9 - ANEMIA, UNSPECIFIED (6) CHF (congestive heart failure) Assessment/Plan: Continue with iv lasix cxr Code(s): I50.9 - HEART FAILURE, UNSPECIFIED (7) COPD (chronic obstructive pulmonary disease) Assessment/Plan: iv solumedrol--taper to bid nebs Code(s): J44.9 - CHRONIC OBSTRUCTIVE PULMONARY DISEASE, UNSPECIFIED
[2019-09-12] MEDS: APIXABAN 5 MG TABLET PO SCH ×2 (10:56→23:03)
[2019-09-12] MEDS: AMIODARONE HCL 200 MG TABLET PO SCH (10:56)
[2019-09-12] MEDS: METOPROLOL TARTRATE 25 MG TABLET (FP) PO SCH (10:56)
--- NOTE | 2019-09-12 12:20 | PN ---
Progress Note (short form) - Note Progress Note: PULMONARY Vented, awake. No fevers recorded. Heart rates better controlled. Radha Berg consult appreciated Have asked endocrine to eval glycemic control VSS/AFEBRILE 16/400/40/5 A/C Gen: vented, awake Heart: irregular Lung: scattered rhonchi Abd: soft, nontender Ext: + edema CHART REVIEWED ASSESSMENT AND PLAN: Chronic Respiratory Failure Pneumonia Sepsis COPD Atrial Fibrillation CAD HTN DM Hypothyroidism Diverticulosis Anemia - Antibiotics per ID - f/u final cultures - inhaled bronchodilators - O2 to keep SpO2 >90% - Lasix - monitor urine output, creatinine - monitor lytes - rate controlled - continue anticoagulation - can use PMV as tolerated - spontaneous breathing trials as tolerated - enteral feeds - DVT/GI prophylaxis - Vent floor monitoring Delon DONATO MD
[2019-09-12 13:25] LABS: ANISOCYTOSIS 3+; MACROCYTOSIS 0; OVALOCYTE 1+; PLATELET ESTIMATE NORMAL; TARGET CELLS 0
[2019-09-12] MEDS ORDERED: ACETAMINOPHEN 325 MG TABLET (FP) PO PRN (18:24)
[2019-09-12] MEDS: ACETAMINOPHEN 325 MG TABLET (FP) PO PRN (18:39)
[2019-09-12] MEDS ORDERED: CHLORHEXIDINE GLUCONATE 4% CLEANSER FOR DECOLONIZATION TP SCH (22:00)
[2019-09-12] MEDS: ATORVASTATIN CA 80 MG TABLET (FP) PO SCH (23:03)
[2019-09-13] MEDS ORDERED: DEXTROSE 5%-WATER 100 ML IVPB ONE ×3 (01:22→17:45)
[2019-09-13] MEDS ORDERED: MEROPENEM 1 GM VIAL (RESTRICTED TO ID) IVPB ONE ×3 (01:22→17:44)
[2019-09-13] MEDS: MEROPENEM 1 GM in DEXTROSE 5%-WATER 100 ML IVPB SCH ×3 (02:36→18:17)
[2019-09-13] MEDS: VANCOMYCIN 1 GRAM (PRE-DOCKED) 1,000 MG/250 ML BAG IVPB SCH ×2 (04:16→18:18)
[2019-09-13] MEDS: FUROSEMIDE 40 MG/4 ML INJECTABLE VIAL IVPUSH SCH ×2 (05:41→15:11)
[2019-09-13] MEDS: ACETAMINOPHEN 325 MG TABLET (FP) PO PRN ×2 (05:45→19:07)
[2019-09-13] MEDS: LEVOTHYROXINE NA 50 MCG TABLET (FP) PO SCH (06:01)
[2019-09-13] MEDS: INSULIN SLIDING SCALE (NOVOLOG) 1 VIAL SQ SCH ×4 (06:01→23:05)
[2019-09-13] MEDS: ALBUTEROL SO4 2.5/IPRATROPIUM 0.5 INH SOL 3 ML VIAL.NEB. NEB SCH ×4 (07:40→20:21)
[2019-09-13 08:06] LABS: HEMATOCRIT 28.9 % (35.4-49); LYMPH % 1.6 % (8-40); MCH 28.4 pg (25.7-33.7); MCHC 31.3 g/dl (32.0-35.9); MEAN CELL VOLUME 90.6 fl (80-96); MONO % 3.3 % (3.8-10.2); NEUT % 95.1 % (42.8-82.8); PLATELET COUNT 494 K/MM3 (134-434); RBC 3.19 M/mm3 (4.00-5.60); RDW 18.1 % (11.9-15.9); WHITE BLOOD COUNT 19.6 K/mm3 (4.0-10.0)
[2019-09-13 08:13] LABS: ALBUMIN 2.1 g/dl (3.4-5.0); BILIRUBIN,TOTAL 0.4 mg/dL (0.2-1); BLOOD UREA NITROGEN 45.8 mg/dL (7-18); CALCIUM 8.9 mg/dL (8.5-10.1); CREATININE 0.7 mg/dL (0.55-1.3); POTASSIUM 4.8 mmol/L (3.5-5.1); TOT PROT 6.9 g/dl (6.4-8.2)
[2019-09-13] MEDS: APIXABAN 5 MG TABLET PO SCH ×2 (09:59→21:13)
[2019-09-13] MEDS: METOPROLOL TARTRATE 25 MG TABLET (FP) PO SCH (10:00)
[2019-09-13] MEDS: AMIODARONE HCL 200 MG TABLET PO SCH (10:00)
[2019-09-13] MEDS: methylPREDNISolone NA SUCC 40 MG/1 ML VIAL IVPUSH SCH (10:00)
--- NOTE | 2019-09-13 11:17 | PN ---
Progress Note, Physician - Current Medication List Current Medications: Active Medications Acetaminophen (Tylenol -) 650 mg PO Q6H PRN PRN Reason: pain or fever Last Admin: 09/13/19 05:45 Dose: 650 mg Albuterol/Ipratropium (Duoneb -) 1 amp NEB RQID [facility] Last Admin: 09/13/19 07:40 Dose: 1 amp Amiodarone HCl (Cordarone -) 200 mg PO DAILY [facility] Last Admin: 09/13/19 10:00 Dose: 200 mg Apixaban (Eliquis -) 5 mg PO BID [facility] Last Admin: 09/13/19 09:59 Dose: 5 mg Atorvastatin Calcium (Lipitor -) 80 mg PO HS [facility] Last Admin: 09/12/19 23:03 Dose: 80 mg Furosemide (Lasix Injection -) 40 mg IVPUSH BID@0600,1400 [facility] Last Admin: 09/13/19 05:41 Dose: 40 mg Vancomycin HCl (Vancomycin (Pre-Docked)) 1,000 mg in 250 mls @ 166.667 mls/hr IVPB BID@0500,1700 [facility]; Protocol Last Admin: 09/13/19 04:16 Dose: 166.667 mls/hr Meropenem 1 gm/ Dextrose 100 mls @ 200 mls/hr IVPB Q8H-IV [facility] Last Admin: 09/13/19 10:00 Dose: 200 mls/hr Insulin Aspart (Novolog Vial Sliding Scale -) 1 vial SQ [facility]; Protocol Last Admin: 09/13/19 06:01 Dose: 10 units Insulin Detemir (Levemir Vial) [address] [facility] Levothyroxine Sodium (Synthroid -) 50 mcg PO ACBK [facility] Last Admin: 09/13/19 06:01 Dose: 50 mcg Methylprednisolone Sodium Succinate (Solu-Medrol -) 40 mg IVPUSH BID [facility] Last Admin: 09/13/19 10:00 Dose: 40 mg Metoprolol Tartrate (Lopressor -) 25 mg PO DAILY [facility] Last Admin: 09/13/19 10:00 Dose: 25 mg - Objective Vital Signs: Vital Signs Temperature 98.3 F 09/13/19 10:00 Pulse Rate 114 H 09/13/19 10:00 Respiratory Rate 19 09/13/19 10:00 Blood Pressure 126/69 09/13/19 10:00 O2 Sat by Pulse Oximetry (%) 99 09/13/19 08:29 Cardiovascular: Yes: S1, S2 Respiratory: Yes: CTA Bilaterally, Mechanically Ventilated Gastrointestinal: Yes: Normal Bowel Sounds, Soft Labs: CBC, BMP 09/13/19 07:08 09/13/19 07:08 INR, PTT INR 1.74 (0.83-1.09) H 09/06/19 17:00 Problem List - Problems (1) Paroxysmal A-fib Assessment/Plan: - stable Continue BB, Eliquis Code(s): I48.0 - PAROXYSMAL ATRIAL FIBRILLATION (2) Sepsis Assessment/Plan: Likely due to Pneumonia Zosyn and Vancomycin Appreciate ID consult Monitor CBC, BMP Microbiology 09/06/19 17:00 Blood - Peripheral Venous Blood Culture - Final NO GROWTH AFTER 5 DAYS INCUBATION 09/06/19 17:15 Blood - Peripheral Venous Blood Culture - Final NO GROWTH AFTER 5 DAYS INCUBATION 09/07/19 05:30 Sputum - Endotrachea Suction/Ventilator Gram Stain - Final 09/07/19 05:30 Sputum - Endotrachea Suction/Ventilator Sputum Culture - Final S Aureus Pseudomonas Aeruginosa Klebsiella Pneumoniae - Esbl 09/07/19 05:30 Urine For Antigen Detection Legionella Antigen - Final 09/07/19 05:30 Urine For Antigen Detection Streptococcus pneumoniae Antigen (M - Final 09/07/19 06:30 Urine - Urine Clean Catch Urine Culture - Final NO GROWTH OBTAINED Code(s): A41.9 - SEPSIS, UNSPECIFIED ORGANISM Qualifiers: Sepsis type: sepsis due to unspecified organism Sepsis acute organ dysfunction status: unspecified Qualified Code(s): A41.9 - Sepsis, unspecified organism (3) Pneumonia Assessment/Plan: Zosyn, Vancomycin per ID Appreciate ID consult Monitor CBC, BMP O2- trach-vent Monitor vent settings Duonebs Code(s): J18.9 - PNEUMONIA, UNSPECIFIED ORGANISM Qualifiers: Pneumonia type: due to unspecified organism Laterality: bilateral Lung location: lower lobe of lung Qualified Code(s): J18.9 - Pneumonia, unspecified organism (4) Chronic respiratory failure with hypoxia and hypercapnia Assessment/Plan: s/p Trach- vent dependent Appreciate Pulm consult Monitor Spo2 Duonebs Code(s): J96.11 - CHRONIC RESPIRATORY FAILURE WITH HYPOXIA; J96.12 - CHRONIC RESPIRATORY FAILURE WITH HYPERCAPNIA (5) Anemia Assessment/Plan: prbc given-stable now monitor labs w/u ordered Code(s): D64.9 - ANEMIA, UNSPECIFIED (6) CHF (congestive heart failure) Assessment/Plan: Continue with iv lasix cxr Code(s): I50.9 - HEART FAILURE, UNSPECIFIED (7) COPD (chronic obstructive pulmonary disease) Assessment/Plan: iv solumedrol--taper to bid nebs Code(s): J44.9 - CHRONIC OBSTRUCTIVE PULMONARY DISEASE, UNSPECIFIED (8) Diabetes mellitus Assessment/Plan: INCREASE LEVEMIR Code(s): E11.9 - TYPE 2 DIABETES MELLITUS WITHOUT COMPLICATIONS
[2019-09-13 11:31] LABS: ANISOCYTOSIS 1+; MACROCYTOSIS 0; OVALOCYTE 1+; PLATELET ESTIMATE NORMAL
[2019-09-13] MEDS ORDERED: METOPROLOL TARTRATE 25 MG TABLET (FP) PO ONE (17:54)
[2019-09-13] MEDS ORDERED: LORazepam 0.5 MG TABLET PO ONE (18:25)
[2019-09-13] MEDS ORDERED: INSULIN (NOVOLOG) ASPART 100 UNITS/ML 10ML VIAL SQ ONE (18:26)
[2019-09-13] MEDS: ATORVASTATIN CA 80 MG TABLET (FP) PO SCH (21:13)
[2019-09-13] MEDS ORDERED: INSULIN (LEVEMIR) 100 UNITS/ML UNITS SQ SCH ×4 (22:00)
[2019-09-14] MEDS ORDERED: METOPROLOL TARTRATE 25 MG TABLET (FP) PO ONE ×2 (00:44→13:48)
[2019-09-14] MEDS ORDERED: INSULIN (NOVOLOG) ASPART 100 UNITS/ML 10ML VIAL SQ ONE (00:45)
[2019-09-14] MEDS ORDERED: DEXTROSE 5%-WATER 100 ML IVPB ONE ×3 (00:55→17:36)
[2019-09-14] MEDS ORDERED: MEROPENEM 1 GM VIAL (RESTRICTED TO ID) IVPB ONE ×3 (00:55→17:36)
[2019-09-14] MEDS: MEROPENEM 1 GM in DEXTROSE 5%-WATER 100 ML IVPB SCH ×3 (01:09→17:45)
[2019-09-14] MEDS: VANCOMYCIN 1 GRAM (PRE-DOCKED) 1,000 MG/250 ML BAG IVPB SCH ×2 (04:05→17:45)
[2019-09-14] MEDS: FUROSEMIDE 40 MG/4 ML INJECTABLE VIAL IVPUSH SCH ×2 (05:59→14:59)
[2019-09-14] MEDS: LEVOTHYROXINE NA 50 MCG TABLET (FP) PO SCH (05:59)
[2019-09-14] MEDS: INSULIN SLIDING SCALE (NOVOLOG) 1 VIAL SQ SCH ×4 (06:00→23:07)
[2019-09-14] MEDS ORDERED: INSULIN (LEVEMIR) 100 UNITS/ML UNITS SQ SCH ×2 (07:00→10:53)
[2019-09-14] MEDS: ALBUTEROL SO4 2.5/IPRATROPIUM 0.5 INH SOL 3 ML VIAL.NEB. NEB SCH ×4 (08:36→19:50)
[2019-09-14] MEDS ORDERED: METOPROLOL TARTRATE 25 MG TABLET (FP) PO SCH (10:00)
[2019-09-14] MEDS: AMIODARONE HCL 200 MG TABLET PO SCH (10:15)
[2019-09-14] MEDS: APIXABAN 5 MG TABLET PO SCH ×2 (10:15→21:35)
[2019-09-14] MEDS: predniSONE 10 MG TABLET (UD) PO SCH (10:15)
[2019-09-14] MEDS: ACETAMINOPHEN 325 MG TABLET (FP) PO PRN ×2 (10:16→21:35)
--- NOTE | 2019-09-14 10:54 | PN ---
Progress Note, Physician Chief Complaint: Pneumonia Sepsis Uncontrolled Afib History of Present Illness: NAD mech vent No events overnight awake and alert, oriented x 3 Talking over his trach Trial of PMV during the visit tolerated well. Has great potential to try MBS and wean off mech vent. - Current Medication List Current Medications: Active Medications Acetaminophen (Tylenol -) 650 mg PO Q6H PRN PRN Reason: pain or fever Last Admin: 09/14/19 10:16 Dose: 650 mg Albuterol/Ipratropium (Duoneb -) 1 amp NEB RQID [facility] Last Admin: 09/14/19 08:36 Dose: 1 amp Amiodarone HCl (Cordarone -) 200 mg PO DAILY [facility] Last Admin: 09/14/19 10:15 Dose: 200 mg Apixaban (Eliquis -) 5 mg PO BID [facility] Last Admin: 09/14/19 10:15 Dose: 5 mg Atorvastatin Calcium (Lipitor -) 80 mg PO HS [facility] Last Admin: 09/13/19 21:13 Dose: 80 mg Furosemide (Lasix Injection -) 40 mg IVPUSH BID@0600,1400 [facility] Last Admin: 09/14/19 05:59 Dose: 40 mg Vancomycin HCl (Vancomycin (Pre-Docked)) 1,000 mg in 250 mls @ 166.667 mls/hr IVPB BID@0500,1700 [facility]; Protocol Last Admin: 09/14/19 04:05 Dose: 166.667 mls/hr Meropenem 1 gm/ Dextrose 100 mls @ 200 mls/hr IVPB Q8H-IV [facility] Last Admin: 09/14/19 10:15 Dose: 200 mls/hr Insulin Aspart (Novolog Vial Sliding Scale -) 1 vial SQ ACHS [facility]; Protocol Last Admin: 09/14/19 06:00 Dose: 8 units Insulin Detemir (Levemir Vial) 20 units SQ AM [facility] Last Admin: 09/14/19 06:00 Dose: 20 units Insulin Detemir (Levemir Vial) 15 units SQ HS [facility] Last Admin: 09/13/19 21:06 Dose: 15 units Levothyroxine Sodium (Synthroid -) 50 mcg PO ACBK [facility] Last Admin: 09/14/19 05:59 Dose: 50 mcg Metoprolol Tartrate (Lopressor -) 25 mg PO BID [facility] Last Admin: 09/14/19 10:18 Dose: 25 mg Prednisone (Deltasone -) 30 mg PO DAILY [facility] Last Admin: 09/14/19 10:15 Dose: 30 mg - Objective Vital Signs: Vital Signs Temperature 98.1 F 09/14/19 05:57 Pulse Rate 99 H 09/14/19 05:57 Respiratory Rate 28 H 09/14/19 08:34 Blood Pressure 134/78 09/14/19 05:57 O2 Sat by Pulse Oximetry (%) 100 09/13/19 21:00 Constitutional: Yes: Well Nourished, No Distress, Calm Cardiovascular: Yes: Tachycardia, Pulse Irregular Respiratory: Yes: Mechanically Ventilated, Rhonchi (diffuse) Gastrointestinal: Yes: Normal Bowel Sounds, Soft Genitourinary: Yes: Incontinence Musculoskeletal: Yes: Muscle Weakness Extremities: Yes: Other (generalized atrophy) Edema: No Peripheral Pulses WNL: Yes Neurological: Yes: Alert Psychiatric: Yes: Alert, Other (anxious) Labs: CBC, BMP 09/13/19 07:08 09/13/19 07:08 INR, PTT INR 1.74 (0.83-1.09) H 09/06/19 17:00 Problem List - Problems (1) Anxiety Assessment/Plan: -Unable to start SSRI 2/2 to interaction with Amiodarone that may lead to QT prolongation -trial of Buspirone 15 mg GT TID Problems reviewed: Yes Code(s): F41.9 - ANXIETY DISORDER, UNSPECIFIED Assessment/Plan (1) Paroxysmal A-fib Assessment/Plan: -Chronic, tachycardiac -Increase Lopressor to 50 mg GT BID -Continue Eliquis Code(s): I48.0 - PAROXYSMAL ATRIAL FIBRILLATION (2) Sepsis Assessment/Plan: -Likely due to Pneumonia -Meropenem day 4 -Vancomycin day 5 -ID consult -Cultures: Microbiology 09/06/19 17:00 Blood - Peripheral Venous Blood Culture - Final NO GROWTH AFTER 5 DAYS INCUBATION 09/06/19 17:15 Blood - Peripheral Venous Blood Culture - Final NO GROWTH AFTER 5 DAYS INCUBATION 09/07/19 05:30 Sputum - Endotrachea Suction/Ventilator Gram Stain - Final 09/07/19 05:30 Sputum - Endotrachea Suction/Ventilator Sputum Culture - Final Mr S Aureus Pseudomonas Aeruginosa Klebsiella Pneumoniae - Esbl 09/07/19 05:30 Urine For Antigen Detection Legionella Antigen - Final 09/07/19 05:30 Urine For Antigen Detection Streptococcus pneumoniae Antigen (M - Final 09/07/19 06:30 Urine - Urine Clean Catch Urine Culture - Final NO GROWTH OBTAINED Code(s): A41.9 - SEPSIS, UNSPECIFIED ORGANISM Qualifiers: Sepsis type: sepsis due to unspecified organism Sepsis acute organ dysfunction status: unspecified Qualified Code(s): A41.9 - Sepsis, unspecified organism (3) Pneumonia Assessment/Plan: -IV abd -ID consult -afebrile -Pulmonary on board -Bronchodilators Code(s): J18.9 - PNEUMONIA, UNSPECIFIED ORGANISM Qualifiers: Pneumonia type: due to unspecified organism Laterality: bilateral Lung location: lower lobe of lung Qualified Code(s): J18.9 - Pneumonia, unspecified organism (4) Chronic respiratory failure with hypoxia and hypercapnia Assessment/Plan: -Pulmonary on board -Bronchodilators Code(s): J96.11 - CHRONIC RESPIRATORY FAILURE WITH HYPOXIA; J96.12 - CHRONIC RESPIRATORY FAILURE WITH HYPERCAPNIA (5) Anemia Assessment/Plan: -Stool Guaiac negative -Iron% low -start Ferrous sulfate daily -monitor trend Code(s): D64.9 - ANEMIA, UNSPECIFIED (6) CHF (congestive heart failure) Assessment/Plan: -Continue IV furosemide 40 mg BID -cxr 09/13/19 reviewed Code(s): I50.9 - HEART FAILURE, UNSPECIFIED (7) COPD (chronic obstructive pulmonary disease) Assessment/Plan: -on prednisone via GT- tapering dose -Bronchodilators Code(s): J44.9 - CHRONIC OBSTRUCTIVE PULMONARY DISEASE, UNSPECIFIED (8) Diabetes mellitus Assessment/Plan: -A1c at 7.1 -BGM AC HS -ISS -Increase daytime Levemir to 26 U AM and 20 U HS -Endocrine consult appreciated Code(s): E11.9 - TYPE 2 DIABETES MELLITUS WITHOUT COMPLICATIONS
[2019-09-14] MEDS ORDERED: METOPROLOL TARTRATE 50 MG TABLET (FP) PO SCH (10:56)
--- NOTE | 2019-09-14 11:14 | PN ---
Progress Note (short form) - Note Progress Note: PULMONARY Vented, arousable. No fevers recorded. Vital Signs Period Temp Pulse Resp BP Sys/Wynne Pulse Ox Last 24 Hr 97.3 F-98.5 F 60-129 18-30 121-148/65-78 98-100 Gen: vented, awake Heart: irregular Lung: scattered rhonchi Abd: soft, nontender Ext: + edema CBC, BMP 09/13/19 07:08 09/13/19 07:08 Active Medications Acetaminophen (Tylenol -) 650 mg PO Q6H PRN PRN Reason: pain or fever Last Admin: 09/14/19 10:16 Dose: 650 mg Albuterol/Ipratropium (Duoneb -) 1 amp NEB RQID [facility] Last Admin: 09/14/19 08:36 Dose: 1 amp Amiodarone HCl (Cordarone -) 200 mg PO DAILY [facility] Last Admin: 09/14/19 10:15 Dose: 200 mg Apixaban (Eliquis -) 5 mg PO BID [facility] Last Admin: 09/14/19 10:15 Dose: 5 mg Atorvastatin Calcium (Lipitor -) 80 mg PO HS [facility] Last Admin: 09/13/19 21:13 Dose: 80 mg Buspirone HCl (Buspar -) 15 mg GT TID [facility] Ferrous Sulfate (Feosol) 300 mg GT DAILY [facility] Furosemide (Lasix Injection -) 40 mg IVPUSH BID@0600,1400 [facility] Last Admin: 09/14/19 05:59 Dose: 40 mg Vancomycin HCl (Vancomycin (Pre-Docked)) 1,000 mg in 250 mls @ 166.667 mls/hr IVPB BID@0500,1700 [facility]; Protocol Last Admin: 09/14/19 04:05 Dose: 166.667 mls/hr Meropenem 1 gm/ Dextrose 100 mls @ 200 mls/hr IVPB Q8H-IV [facility] Last Admin: 09/14/19 10:15 Dose: 200 mls/hr Insulin Aspart (Novolog Vial Sliding Scale -) 1 vial SQ ACHS [facility]; Protocol Last Admin: 09/14/19 06:00 Dose: 8 units Insulin Detemir (Levemir Vial) 26 units SQ AM [facility] Insulin Detemir (Levemir Vial) 20 units SQ HS [facility] Levothyroxine Sodium (Synthroid -) 50 mcg PO ACBK [facility] Last Admin: 09/14/19 05:59 Dose: 50 mcg Metoprolol Tartrate (Lopressor -) 50 mg PO BID [facility] Prednisone (Deltasone -) 30 mg PO DAILY [facility] Last Admin: 09/14/19 10:15 Dose: 30 mg A/P Chronic Respiratory Failure Pneumonia Sepsis COPD Atrial Fibrillation CAD HTN DM Hypothyroidism Diverticulosis Anemia - continue antibiotics per ID - inhaled bronchodilators - O2 to keep SpO2 >90% - continue lasix - monitor urine output, creatinine - monitor lytes - rate controlled - continue anticoagulation - can use PMV as tolerated - spontaneous breathing trials as tolerated - enteral feeds - DVT/GI prophylaxis
--- NOTE | 2019-09-14 11:27 | PN ---
Progress Note, DYE WEIGHER - Note Progress Note: Selected Entries 09/13/19 09/13/19 09/13/19 06:00 10:00 14:26 Supper NPO Temperature 97.3 F L 98.3 F 97.3 F L 09/13/19 09/13/19 09/13/19 16:00 18:39 20:00 Supper NPO Temperature 98.2 F 98.4 F 98.5 F 09/13/19 09/14/19 09/14/19 23:35 03:00 03:14 Supper Temperature 98.4 F 97.8 F 98.5 F 09/14/19 05:57 Supper Temperature 98.1 F Laboratory Tests 09/10/19 09/11/19 09/12/19 16:45 05:35 07:37 WBC 15.5 H 13.5 H 14.2 H 09/13/19 07:08 WBC 19.6 H Did well with pmv yesterday. 10am Trialed today, good voicing, comfortable, RR increased to 30's. Sleepy but arousable. Ativan yesterday. Suggest daily use of PMV, as tolerated, increasing time on valve to increase upper airway function, voicing,communication, socialization, swallowing and to expedite weaning 1-Take deep breath and push out voice LOUD eg Breathe in, shout 1, Breathe in, shout 2, Breathe in, shout 3, Breathe in, shout 4, ........... 2 syllables- eg Saturday, Saturday,..... Multisyllabic words- September, October, .... Short sentences- I love you, Please sit down etc 2-Breathe in say sudden loud EEEEE Breathe in and then hold EEEE as long as you can-Watch the clock- Try to increase breath support 3- Swallow saliva, HARD, With effort 4- Tongue out, hold b/n your lips and swallow - Several times a day 5- Cough, re-swallow 6- Push tongue up against roof of mouth, hold 5 sec, relax, repeat 10 times 7- Vocal slide- Say eeeee low pitch, slide to high pitch to elevate larynx. If able to tolerate PMV, MBS to assess swallowing function. Exercises posted for f/u with pt's /staff ASpiration on MBS. Strict NPO until using PMV more consistently and MBS repeated as out pt. Seen pt/family again at 445 pm,. Pt weak/lethargic today.
[2019-09-14] MEDS: busPIRone HCL 5 MG TABLET GT SCH ×3 (12:34→21:35)
[2019-09-14] MEDS: FAMOTIDINE 40 MG/5 ML ORAL SUSPENSION PEG SCH (18:37)
--- NOTE | 2019-09-14 19:14 | CONSULT ---
Consult Consult Specialty:: ENDOCRINE Referred by:: DR.DEMATTEO HERMOSILLO Reason for Consultation:: DMT2/SEPSIS - History of Present Illness Chief Complaint: HIGH SUGARS History of Present Illness: 79 y/o man from [facility] with a PMHx of DMT2,Hypothyroidism,Chronic Respiratory Failure s/p Trach, COPD, Chronic Anemia (blood transfusions), pAfib, HTN, HLD, GERD, Nephrolithasis, Squamous Ca (Back,2017).Admitted with respiratory failure, cough wheezing,anemia requiring transfusion,has been lethargic,weak,hypoxic, requiring iv antibiotics,and steroids.his blood sugars have remained high despite insulin coverage - Past Medical History Cardio/Vascular: Yes: AFIB, HTN, Hyperlipdemia Pulmonary: Yes: COPD, O2 Dependent (trach-vent) Gastrointestinal: Yes: GERD Renal/: Yes: Renal Calculi Infectious Disease: Yes: MRSA (sputum) Endocrine: Yes: Diabetes Mellitus, Hypothyroidism Dermatology: Yes: Squamous Cell (lumbar) - Alcohol/Substance Use Hx Alcohol Use: No History of Substance Use: reports: None - Smoking History Smoking history: Former smoker Have you smoked in the past 12 months: No If you are a former smoker, when did you quit?: 45 years ago - Social History ADL: Support Services History of Recent Travel: No Home Medications - Allergies Allergies/Adverse Reactions: Allergies Allergy/AdvReac Type Severity Reaction Status Date / Time heparin Allergy Verified 09/06/19 16:50 - Home Medications Home Medications: Ambulatory Orders Atorvastatin Ca [Lipitor] 80 mg PO DAILY 12/22/12 Colchicine/Probenecid [Col-Benemid] 1 tab PO DAILY 12/22/12 Ezetimibe [Zetia] 10 mg PO DAILY 12/22/12 Insulin Lispro [Humalog] 12 unit SQ AC 12/22/12 Latanoprost 0.005% Eye Drops [Xalatan 0.005% Eye Drops -] 1 drop OU HS 12/22/12 Lisinopril/Hydrochlorothiazide [Lisinopril-Hctz 20-12.5 mg Tab] 1 each PO HS Aspirin [ASA -] 325 mg PO DAILY #0 03/23/15 Exenatide Microspheres [Bydureon Pen] 3.08 mg SQ WEEKLY 03/23/15 Insulin Glargine,Hum.rec.anlog [Lantus (10mL VIAL) -] 40 units SCJ HS 03/23/15 Levothyroxine [Synthroid -] 1 tab PO DAILY 03/23/15 Poca-3 Fatty Acids [Fish Oil] 1 cap PO DAILY 03/23/15 Albuterol 2.5/Ipratropium 0.5 [Duoneb -] 1 neb NEB Q4H 09/06/19 Amiodarone HCl 200 mg PO DAILY 09/06/19 Apixaban [Eliquis] 5 mg PO BID 09/06/19 Metoprolol Tartrate 25 mg PO DAILY 09/06/19 Review of Systems - Review of Systems Constitutional: reports: Lethargy, Weakness Eyes: reports: No Symptoms HENT: reports: Throat Pain Neck: reports: No Symptoms Cardiovascular: reports: Shortness of Breath Respiratory: reports: Cough, Orthopnea, SOB, SOB on Exertion, Wheezing Gastrointestinal: reports: Bloating Genitourinary: reports: No Symptoms Musculoskeletal: reports: Extremity Pain, Joint Swelling, Muscle Pain, Muscle Cramps Integumentary: reports: Erythema, Incision, Pruritis, Rash Neurological: reports: Dizziness, Numbness, Weakness Physical Exam Vital Signs: Vital Signs Temperature 98.0 F 09/14/19 18:00 Pulse Rate 88 09/14/19 18:00 Respiratory Rate 18 09/14/19 18:00 Blood Pressure 116/60 09/14/19 18:00 O2 Sat by Pulse Oximetry (%) 100 09/13/19 21:00 Constitutional: Yes: Anxious Eyes: Yes: EOM Intact HENT: Yes: Hoarseness, Nasal Congestion, Pharyngeal Erythema, Thrush Neck: Yes: Trachea Midline Cardiovascular: Yes: Bradycardia Respiratory: Yes: Mechanically Ventilated, Rhonchi, Tachypnea, Wheezes Gastrointestinal: Yes: Hyperactive Bowel Sounds ...Rectal Exam: Yes: Deferred Musculoskeletal: Yes: Joint Stiffness, Joint Swelling, Muscle Pain, Muscle Weakness Extremities: Yes: Cool, Delayed Capillary Refill Wound/Incision: Yes: Draining, Reddened Neurological: Yes: Confusion, Numbness, Weakness Labs: CBC, BMP 09/13/19 07:08 09/13/19 07:08 Problem List - Problems (1) Type 2 diabetes mellitus with diabetic autonomic (poly)neuropathy Problems reviewed: Yes Code(s): E11.43 - TYPE 2 DIABETES W DIABETIC AUTONOMIC (POLY)NEUROPATHY Qualifiers: 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 Qualified Code( s): E11.43 - Type 2 diabetes mellitus with diabetic autonomic (poly)neuropathy; 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 (2) Anemia Code(s): D64.9 - ANEMIA, UNSPECIFIED Qualifiers: Anemia type: B12 deficiency (3) CHF (congestive heart failure) Problems reviewed: Yes Code(s): I50.9 - HEART FAILURE, UNSPECIFIED (4) COPD (chronic obstructive pulmonary disease) Code(s): J44.9 - CHRONIC OBSTRUCTIVE PULMONARY DISEASE, UNSPECIFIED (5) Chronic respiratory failure with hypoxia and hypercapnia Code(s): J96.11 - CHRONIC RESPIRATORY FAILURE WITH HYPOXIA; J96.12 - CHRONIC RESPIRATORY FAILURE WITH HYPERCAPNIA (6) Diabetes mellitus Code(s): E11.9 - TYPE 2 DIABETES MELLITUS WITHOUT COMPLICATIONS (7) GERD (gastroesophageal reflux disease) Code(s): K21.9 - GASTRO-ESOPHAGEAL REFLUX DISEASE WITHOUT ESOPHAGITIS Assessment/Plan Current Active Problems Anemia (Acute) Anxiety (Acute) CHF (congestive heart failure) (Acute) COPD (chronic obstructive pulmonary disease) (Acute) Chronic respiratory failure with hypoxia and hypercapnia (Acute) Diabetes mellitus (Acute) GERD (gastroesophageal reflux disease) (Acute) HLD (hyperlipidemia) (Acute) HTN (hypertension) (Acute) Paroxysmal A-fib (Acute) Pneumonia (Acute) Sepsis (Acute) Laboratory Results - last 24 hr 09/12/19 09/13/19 09/14/19 06:13 23:02 05:33 POC Glucometer 440 461 340 09/14/19 09/14/19 09/14/19 12:31 17:20 18:59 POC Glucometer 308 310 294 Laboratory Tests 09/07/19 09/13/19 09/13/19 05:35 07:08 07:08 Sodium 140 Potassium 4.8 Chloride 95 L Anion Gap 1 L BUN 45.8 H Creatinine 0.7 Est GFR (CKD-EPI)AfAm 104.03 Est GFR (CKD-EPI)NonAf 89.76 POC Glucometer Hemoglobin A1c % 7.1 H TSH 2.01 09/13/19 09/13/19 09/14/19 19:16 23:02 05:33 Sodium Potassium Chloride Anion Gap BUN Creatinine Est GFR (CKD-EPI)AfAm Est GFR (CKD-EPI)NonAf POC Glucometer 464 461 340 Hemoglobin A1c % TSH 09/14/19 09/14/19 09/14/19 12:31 17:20 18:59 Sodium Potassium Chloride Anion Gap BUN Creatinine Est GFR (CKD-EPI)AfAm Est GFR (CKD-EPI)NonAf POC Glucometer 308 310 294 Hemoglobin A1c % TSH plan: bgm q4h levemir bid will taper as steroids stable euthyroid synthroid daily doses
[2019-09-14] MEDS: METOPROLOL TARTRATE 50 MG TABLET (FP) PO SCH (21:34)
[2019-09-14] MEDS: ATORVASTATIN CA 80 MG TABLET (FP) PO SCH (21:35)
[2019-09-14 22:05] LABS: HEMATOCRIT 32.9 % (35.4-49); HEMOGLOBIN 10.2 GM/dL (11.7-16.9); MCHC 31.1 g/dl (32.0-35.9); MEAN CELL VOLUME 93.2 fl (80-96); MEAN PLT VOLUME 9.7 fl (7.5-11.1); PLATELET COUNT 500 K/MM3 (134-434); RBC 3.53 M/mm3 (4.00-5.60); RDW 18.4 % (11.9-15.9); WHITE BLOOD COUNT 17.7 K/mm3 (4.0-10.0)
[2019-09-14 22:37] LABS: ALBUMIN 2.4 g/dl (3.4-5.0); ALK PHOS 169 U/L (45-117); ANION GAP 2 MMOL/L (8-16); BILIRUBIN,TOTAL 0.4 mg/dL (0.2-1); BLOOD UREA NITROGEN 59.6 mg/dL (7-18); CALCIUM 8.9 mg/dL (8.5-10.1); CHLORIDE 94 mmol/L (98-107); CO2 > 45 mmol/L (21-32); CREATININE 0.8 mg/dL (0.55-1.3); GLUCOSE,RANDOM 315 mg/dL (74-106); POTASSIUM 4.7 mmol/L (3.5-5.1); SGOT/AST 39 U/L (15-37); SGPT/ALT 64 U/L (13-61); SODIUM 142 mmol/L (136-145); TOT PROT 7.2 g/dl (6.4-8.2)
[2019-09-14] MEDS: INSULIN (LEVEMIR) 100 UNITS/ML UNITS SQ SCH (23:05)
--- NOTE | 2019-09-14 23:29 | HOSP ---
Subjective - Review of Symptoms Events since last encounter: 79 y/o man from [facility] with a PMHx of Chronic Respiratory Failure s/p Trach, COPD, Chronic Anemia (blood transfusions), pAfib, HTN, HLD, DM, GERD, Nephrolithasis, Squamous Ca (Back,2017). Who presents to the ED for abnormal lab value- hemoglobin of 6 and right lower lobe infiltrate seen on chest x-ray done at the facility. Patient currently being treated for Sepsis, pneumonia remain on meropenem and vanco. RN microblog stating patient/family complain of CP and SOB. Upon exam patient point to head and abd, does not point at chest, however does say " i am dying" which is worrisome for spouse at bedside, family also concerned about tachycardiac. Explained patient had chronic A-fib and medication were adjusted (increase lopressor 50mg BID) and likely due to infection/sepsis. Respiratory called for suction and neb given. However still concerned. EKG, cbc, cmp and trop STAT were ordered. EKG shows a- fib with rvr vent rate of 108, no s/t changed, trop negative. cbc: wbc trending done, afebrile. Will consult cardio for a-fib. Monitor vitals q 4 hrs. Physical Examination Vital Signs: Vital Signs Temperature 98.0 F 09/14/19 18:00 Pulse Rate 88 09/14/19 18:00 Respiratory Rate 25 H 09/14/19 20:00 Blood Pressure 116/60 09/14/19 18:00 O2 Sat by Pulse Oximetry (%) 100 09/13/19 21:00 Labs: CBC, BMP 09/14/19 21:30 09/14/19 21:30
[2019-09-15] MEDS ORDERED: MEROPENEM 1 GM in SODIUM CHLORIDE 100 ML IVPB SCH (02:00)
[2019-09-15] MEDS: INSULIN SLIDING SCALE (NOVOLOG) 1 VIAL SQ SCH ×6 (02:28→22:42)
[2019-09-15] MEDS: VANCOMYCIN 1 GRAM (PRE-DOCKED) 1,000 MG/250 ML BAG IVPB SCH ×2 (04:21→18:05)
[2019-09-15] MEDS: INSULIN (LEVEMIR) 100 UNITS/ML UNITS SQ SCH ×2 (07:11→22:43)
[2019-09-15] MEDS: LEVOTHYROXINE NA 50 MCG TABLET (FP) PO SCH (07:14)
[2019-09-15] MEDS: FUROSEMIDE 40 MG/4 ML INJECTABLE VIAL IVPUSH SCH ×2 (07:14→14:38)
[2019-09-15] MEDS: ALBUTEROL SO4 2.5/IPRATROPIUM 0.5 INH SOL 3 ML VIAL.NEB. NEB SCH ×4 (08:43→21:17)
[2019-09-15] MEDS ORDERED: MEROPENEM 1 GM VIAL (RESTRICTED TO ID) IVPB ONE ×2 (08:57→17:31)
[2019-09-15] MEDS ORDERED: SODIUM CHLORIDE 100 ML IVPB ONE ×2 (08:57→17:31)
[2019-09-15] MEDS ORDERED: PT OWN MED DRAWER 7, Y5N ONE (08:57)
[2019-09-15] MEDS: predniSONE 10 MG TABLET (UD) PO SCH (10:33)
[2019-09-15] MEDS: AMIODARONE HCL 200 MG TABLET PO SCH (10:33)
[2019-09-15] MEDS: FERROUS SO4 300 MG/5 ML ORAL SOLN UNIT DOSE CUPS GT SCH (10:33)
[2019-09-15] MEDS: FAMOTIDINE 40 MG/5 ML ORAL SUSPENSION PEG SCH (10:34)
[2019-09-15] MEDS: METOPROLOL TARTRATE 50 MG TABLET (FP) PO SCH (10:34)
[2019-09-15] MEDS: APIXABAN 5 MG TABLET PO SCH ×2 (10:34→22:24)
[2019-09-15] MEDS: busPIRone HCL 5 MG TABLET GT SCH (10:36)
--- NOTE | 2019-09-15 10:50 | CON.CARD ---
Consult Consult Specialty:: Cardiology Referred by:: Dr. Knox Reason for Consultation:: Chronic afib - History of Present Illness Chief Complaint: admitted with sepsis, pneumonia, mild tachycardia History of Present Illness: 79 year oold man with pmh Chronic Respiratory Failure s/p Trach, COPD, Chronic Anemia (blood transfusions), reported pAfib on amiodarone, metoprolol and eliquis, HTN, HLD, DM, GERD, Nephrolithasis, Squamous Ca (Back,2016) admitted with sepsis, acute on chronic respiratory failure, pneumonia, anemia. During admission pt noted to have intermittent tachycardia in afib up to 130bpm. He is on Lopressor 25mg bid and amiodarone at the [place]. His lopressor was increased to 50mg bid for tachycardia. This am pt noted to be less responsive and HR dropped to 30s. Rapid response was called and HR improved back to baseline. - Past Medical History Cardio/Vascular: Yes: AFIB, HTN, Hyperlipdemia Pulmonary: Yes: COPD, O2 Dependent (trach-vent) Gastrointestinal: Yes: GERD Renal/: Yes: Renal Calculi Infectious Disease: Yes: MRSA (sputum) Endocrine: Yes: Diabetes Mellitus, Hypothyroidism Dermatology: Yes: Squamous Cell (lumbar) - Alcohol/Substance Use Hx Alcohol Use: No History of Substance Use: reports: None - Smoking History Smoking history: Former smoker Have you smoked in the past 12 months: No If you are a former smoker, when did you quit?: 45 years ago - Social History ADL: Support Services History of Recent Travel: No Home Medications - Allergies Allergies/Adverse Reactions: Allergies Allergy/AdvReac Type Severity Reaction Status Date / Time heparin Allergy Verified 09/06/19 16:50 - Home Medications Home Medications: Ambulatory Orders Atorvastatin Ca [Lipitor] 80 mg PO DAILY 12/22/12 Colchicine/Probenecid [Col-Benemid] 1 tab PO DAILY 12/22/12 Ezetimibe [Zetia] 10 mg PO DAILY 12/22/12 Insulin Lispro [Humalog] 12 unit SQ AC 12/22/12 Latanoprost 0.005% Eye Drops [Xalatan 0.005% Eye Drops -] 1 drop OU HS 12/22/12 Lisinopril/Hydrochlorothiazide [Lisinopril-Hctz 20-12.5 mg Tab] 1 each PO HS Aspirin [ASA -] 325 mg PO DAILY #0 03/23/15 Exenatide Microspheres [Bydureon Pen] 3.08 mg SQ WEEKLY 03/23/15 Insulin Glargine,Hum.rec.anlog [Lantus (10mL VIAL) -] 40 units SCJ HS 03/23/15 Levothyroxine [Synthroid -] 1 tab PO DAILY 03/23/15 [place]-3 Fatty Acids [Fish Oil] 1 cap PO DAILY 03/23/15 Albuterol 2.5/Ipratropium 0.5 [Duoneb -] 1 neb NEB Q4H 09/06/19 Amiodarone HCl 200 mg PO DAILY 09/06/19 Apixaban [Eliquis] 5 mg PO BID 09/06/19 Metoprolol Tartrate 25 mg PO DAILY 09/06/19 Family Medical History Family History: Denies Review of Systems - Review of Systems Constitutional: reports: Fever, Malaise, Weakness. denies: No Symptoms, Chills , Diaphoresis, Lethargy, Loss of Appetite, Night Sweats, Unintentional Wgt. Loss , Other Eyes: denies: No Symptoms, Blind Spots, Blurred Vision, Double Vision, Eye Pain , Floaters, Photophobia, Recent Change in Vision, Other HENT: denies: No Symptoms, Difficult Swallowing, Ear Discharge, Ear Pain, Epistaxis, Gingival Bleeding, Hearing Loss, Mouth Swelling, Nasal Congestion, Ocular Prosthesis, Throat Pain, Toothache, Ringing in Ears, Other Neck: denies: No Symptoms, Decreased ROM, Lumps, Pain on Movement, Stiffness, Swollen Glands, Tenderness, Other Cardiovascular: reports: Shortness of Breath. denies: No Symptoms, Chest Pain, Edema, Palpitations, Other Respiratory: reports: SOB. denies: No Symptoms, Cough, Exercise Intolerance, Hemoptysis, Orthopnea, PND, Snoring, SOB on Exertion, Wheezing, Other Gastrointestinal: denies: No Symptoms, Abdominal Pain, Bloating, Constipation, Diarrhea, Dysphagia, Indigestion, Melena, Nausea, Rectal Bleeding, Vomiting, Vomiting Blood, Other Genitourinary: denies: No Symptoms, Burning, Discharge, Dysuria, Flank Pain, Frequency, Hematuria, Incontinence, Lesions, Menses, Pain, Testicular Mass, Testicular Pain, Testicular Swelling, Urgency, Vaginal Bleeding, Other Breasts: denies: No Symptoms Reported, See HPI, Breast Implants, Discharge from Nipple, Lumps, Pain, Skin Changes, Other Musculoskeletal: reports: Muscle Weakness. denies: No Symptoms, Back Pain, Crepitus, Decreased ROM, Extremity Pain, Joint Pain, Joint Swelling, Muscle Pain , Muscle Cramps, Other Integumentary: denies: No Symptoms, Blister, Bruising, Change in Color, Eczema, Erythema, Incision, Lesions, Lump, Pallor, Pruritis, Rash, Wound, Other Neurological: reports: Change in LOC. denies: No Symptoms, Change in Speech, Confusion, Dizziness, Headache, Incoordination, Numbness, Parasthesia, Pre- Existing Deficit, Seizure, Syncope, Tremors, Unsteady Gait, Weakness, Other Endocrine: denies: No Symptoms, Excessive Sweating, Flushing, Increased Hunger, Increased Thirst, Intolerance to Cold, Intolerance to Heat, Unexplained Weight Gain, Unexplained Weight Loss, Other Hematology/Lymphatic: denies: No Symptoms, Easily Bruised, Excessive Bleeding, Swollen Glands, Other Psychiatric: denies: No Symptoms, Altered Sleep Pattern, Anxiety, Depression, Hallucinations, Panic, Paranoia, Suicidal, Other - Risk Factors Known Risk Factors: Yes: Age, Physical Inactivity Vital Signs: Vital Signs Temperature 97.7 F 09/15/19 06:00 Pulse Rate 107 H 09/15/19 06:00 Respiratory Rate 27 H 09/15/19 08:47 Blood Pressure 133/66 09/15/19 06:00 O2 Sat by Pulse Oximetry (%) 100 09/14/19 21:00 Constitutional: Yes: No Distress, Calm Neck: Yes: Supple, Trachea Midline Respiratory: Yes: Regular, Mechanically Ventilated Gastrointestinal: Yes: Normal Bowel Sounds, Soft Cardiovascular: Yes: Pulse Irregular. No: Regular Rate and Rhythm, Bradycardia , Tachycardia, Gallop, Rub, Varicosities JVD: No Carotid Bruit: No PMI: Non-Displaced Heart Sounds: Yes: S1, S2. No: Split S2, S3, S4, Clicks, Gallop, Rub, Bruit Murmur: No: Systolic Murmur, Diastolic Murmur Edema: No Peripheral Pulses WNL: Yes Neurological: Yes: Alert Psychiatric: Yes: Alert - Other Data Labs, Other Data: CBC, BMP 09/14/19 21:30 09/14/19 21:30 INR, PTT INR 1.74 (0.83-1.09) H 09/06/19 17:00 Troponin, BNP 09/14/19 21:30 Troponin I 0.02 Troponin, BNP 09/14/19 21:30 Troponin I 0.02 ekg 09/06 nsr with apcs, pvcs, nsst Imaging - Results Chest X-ray: Report Reviewed, Image Reviewed EKG: Report Reviewed, Image Reviewed Other: Report Reviewed, Image Reviewed Assessment/Plan 79 year oold man with pmh Chronic Respiratory Failure s/p Trach, COPD, Chronic Anemia (blood transfusions), reported pAfib on amiodarone, metoprolol and eliquis, HTN, HLD, DM, GERD, Nephrolithasis, Squamous Ca (Back,2016) admitted with sepsis, acute on chronic respiratory failure, pneumonia, anemia. During admission pt noted to have intermittent tachycardia in afib up to 130bpm. He is on Lopressor 25mg bid and amiodarone at the [place]. His lopressor was increased to 50mg bid for tachycardia. This am pt noted to be less responsive and HR dropped to 30s. Rapid response was called and HR improved back to baseline. Afib-paroxysmal -has been in afib during admission -HR above goal at times likely driven by underlying illnesses with sepsis, anemia -lopressor had been increased to 50mg bid but with bradycardia this am -hold lopressor and when able to resume it would resume home dose of 25mg bid -cont amiodarone for now -would not aggressively treat mild tachycardia as it is likely secondary to sepsis and anemia -can allow for mild tachycardia ie HR <110bpm -cont eliquis if safe to do so
--- NOTE | 2019-09-15 11:11 | PN ---
Progress Note, [employer] - Note Progress Note: Selected Entries 09/14/19 09/14/19 09/14/19 03:00 03:14 05:57 Supper Temperature 97.8 F 98.5 F 98.1 F 09/14/19 09/14/19 09/14/19 10:00 13:00 17:20 Supper NPO Temperature 98.0 F 98.1 F 09/14/19 09/14/19 09/14/19 18:00 20:00 22:00 Supper Temperature 98.0 F 98.0 F 98.1 F 09/15/19 09/15/19 09/15/19 00:00 02:00 04:00 Supper Temperature 98.1 F 98.9 F 98.6 F 09/15/19 06:00 Supper Temperature 97.7 F Laboratory Tests 09/13/19 09/14/19 07:08 21:30 WBC 19.6 H 17.7 H More lethargic today. Family at bedside. Defer PMV. To follow when improved medically.
--- NOTE | 2019-09-15 11:59 | PN ---
Progress Note, Physician Chief Complaint: Pneumonia Sepsis Uncontrolled Afib History of Present Illness: Walked in during rapid response Pt obtunded IV access obtained, IVF bolus being given Pt's SBP decreased to 70's, which eventually returned to normal, HR was okay - Current Medication List Current Medications: Active Medications Acetaminophen (Tylenol -) 650 mg PO Q6H PRN PRN Reason: pain or fever Last Admin: 09/14/19 21:35 Dose: 650 mg Albuterol/Ipratropium (Duoneb -) 1 amp NEB RQID [facility] [place] Last Admin: 09/15/19 08:43 Dose: 1 amp Amiodarone HCl (Cordarone -) 200 mg PO DAILY [facility] [place] Last Admin: 09/15/19 10:33 Dose: 200 mg Apixaban (Eliquis -) 5 mg PO BID [facility] [place] Last Admin: 09/15/19 10:34 Dose: 5 mg Atorvastatin Calcium (Lipitor -) 80 mg PO HS [facility] [place] Last Admin: 09/14/19 21:35 Dose: 80 mg Famotidine (Pepcid) 20 mg PEG DAILY [facility] [place] Last Admin: 09/15/19 10:34 Dose: 20 mg Ferrous Sulfate (Feosol) 300 mg GT DAILY [facility] [place] Last Admin: 09/15/19 10:33 Dose: 300 mg Furosemide (Lasix Injection -) 40 mg IVPUSH BID@0600,1400 [facility] [place] Last Admin: 09/14/19 14:59 Dose: 40 mg Vancomycin HCl (Vancomycin (Pre-Docked)) 1,000 mg in 250 mls @ 166.667 mls/hr IVPB BID@0500,1700 [facility] [place]; Protocol Last Admin: 09/15/19 04:21 Dose: 166.667 mls/hr Meropenem 1 gm/ Sodium (Chloride) 100 mls @ 200 mls/hr IVPB Q8H-IV [facility] Insulin Aspart (Novolog Vial Sliding Scale -) 1 vial SQ Q4HPO [facility] [place]; Protocol Last Admin: 09/15/19 10:36 Dose: 2 units Insulin Detemir (Levemir Vial) 20 units SQ HS [facility] [place] Last Admin: 09/14/19 23:05 Dose: 20 units Insulin Detemir (Levemir Vial) 35 units SQ AM [facility] [place] Last Admin: 09/15/19 07:11 Dose: 35 units Levothyroxine Sodium (Synthroid -) 50 mcg PO ACBK [facility] [place] Last Admin: 09/15/19 07:14 Dose: 50 mcg Metoprolol Tartrate (Lopressor -) 25 mg PO BID [facility] [place] Prednisone (Deltasone -) 30 mg PO DAILY [facility] [place] Last Admin: 09/15/19 10:33 Dose: 30 mg - Objective Vital Signs: Vital Signs Temperature 97.7 F 09/15/19 06:00 Pulse Rate 84 09/15/19 11:00 Respiratory Rate 16 09/15/19 11:00 Blood Pressure 87/47 L 09/15/19 11:00 O2 Sat by Pulse Oximetry (%) 100 09/14/19 21:00 Constitutional: Yes: Well Nourished, No Distress Cardiovascular: Yes: Pulse Irregular Respiratory: Yes: Mechanically Ventilated Gastrointestinal: Yes: Normal Bowel Sounds, Soft Genitourinary: Yes: Incontinence Musculoskeletal: Yes: Muscle Weakness Edema: No Peripheral Pulses WNL: Yes Neurological: Yes: Lethargy Psychiatric: Yes: Alert Labs: CBC, BMP 09/14/19 21:30 09/14/19 21:30 INR, PTT INR 1.74 (0.83-1.09) H 09/06/19 17:00 Problem List - Problems (1) Anxiety Assessment/Plan: -Unable to start SSRI 2/2 to interaction with Amiodarone that may lead to QT prolongation -D/C Buspirone Problems reviewed: Yes Code(s): F41.9 - ANXIETY DISORDER, UNSPECIFIED Assessment/Plan (1) Paroxysmal A-fib Assessment/Plan: -Chronic, tachycardiac -Hold Lopressor -Continue Eliquis Code(s): I48.0 - PAROXYSMAL ATRIAL FIBRILLATION (2) Sepsis Assessment/Plan: -Likely due to Pneumonia -Meropenem day 5 -Vancomycin day 6 -ID consult -Cultures: Microbiology 09/06/19 17:00 Blood - Peripheral Venous Blood Culture - Final NO GROWTH AFTER 5 DAYS INCUBATION 09/06/19 17:15 Blood - Peripheral Venous Blood Culture - Final NO GROWTH AFTER 5 DAYS INCUBATION 09/07/19 05:30 Sputum - Endotrachea Suction/Ventilator Gram Stain - Final 09/07/19 05:30 Sputum - Endotrachea Suction/Ventilator Sputum Culture - Final Mr S Aureus Pseudomonas Aeruginosa Klebsiella Pneumoniae - Esbl 09/07/19 05:30 Urine For Antigen Detection Legionella Antigen - Final 09/07/19 05:30 Urine For Antigen Detection Streptococcus pneumoniae Antigen (M - Final 09/07/19 06:30 Urine - Urine Clean Catch Urine Culture - Final NO GROWTH OBTAINED Code(s): A41.9 - SEPSIS, UNSPECIFIED ORGANISM Qualifiers: Sepsis type: sepsis due to unspecified organism Sepsis acute organ dysfunction status: unspecified Qualified Code(s): A41.9 - Sepsis, unspecified organism (3) Pneumonia Assessment/Plan: -IV abd -ID consult -afebrile -Pulmonary on board -Bronchodilators Code(s): J18.9 - PNEUMONIA, UNSPECIFIED ORGANISM Qualifiers: Pneumonia type: due to unspecified organism Laterality: bilateral Lung location: lower lobe of lung Qualified Code(s): J18.9 - Pneumonia, unspecified organism (4) Chronic respiratory failure with hypoxia and hypercapnia Assessment/Plan: -Pulmonary on board -Bronchodilators Code(s): J96.11 - CHRONIC RESPIRATORY FAILURE WITH HYPOXIA; J96.12 - CHRONIC RESPIRATORY FAILURE WITH HYPERCAPNIA (5) Anemia Assessment/Plan: -Stool Guaiac negative -Iron% low -started Ferrous sulfate daily -monitor trend Code(s): D64.9 - ANEMIA, UNSPECIFIED (6) CHF (congestive heart failure) Assessment/Plan: -Continue IV furosemide 40 mg BID -Repeat CXR today Code(s): I50.9 - HEART FAILURE, UNSPECIFIED (7) COPD (chronic obstructive pulmonary disease) Assessment/Plan: -on prednisone via GT- tapering dose -Bronchodilators Code(s): J44.9 - CHRONIC OBSTRUCTIVE PULMONARY DISEASE, UNSPECIFIED (8) Diabetes mellitus Assessment/Plan: -A1c at 7.1 -BGM AC HS -ISS -Levemir 26 U AM and 20 U HS -Endocrine consult appreciated Code(s): E11.9 - TYPE 2 DIABETES MELLITUS WITHOUT COMPLICATIONS Rapid Response: Stat: IV bolus 1 L CXR EKG Blood cultures Labs: cbc cmp CT head Hold Lopressor and amiodarone Evaluated by ICU team, to be continued monitoring on the floor Ordered Neurology consult Pt mental status improved after above intervention, pt opening eyes to verbal stimuli, able to recognize his daughter.
--- NOTE | 2019-09-15 12:26 | PN ---
Progress Note (short form) - Note Progress Note: PULMONARY Rapid response called earlier for decreased responsiveness and hypotension. Vital Signs Period Temp Pulse Resp BP Sys/Wynne Pulse Ox Last 24 Hr 97.7 F-98.9 F 84-120 16-27 87-150/47-83 100 Gen: vented, awake Heart: irregular Lung: scattered rhonchi Abd: soft, nontender Ext: + edema CBC, BMP 09/14/19 21:30 09/14/19 21:30 Active Medications Acetaminophen (Tylenol -) 650 mg PO Q6H PRN PRN Reason: pain or fever Last Admin: 09/14/19 21:35 Dose: 650 mg Albuterol/Ipratropium (Duoneb -) 1 amp NEB RQID [facility] Last Admin: 09/15/19 08:43 Dose: 1 amp Amiodarone HCl (Cordarone -) 200 mg PO DAILY [facility] Last Admin: 09/15/19 10:33 Dose: 200 mg Apixaban (Eliquis -) 5 mg PO BID [facility] Last Admin: 09/15/19 10:34 Dose: 5 mg Atorvastatin Calcium (Lipitor -) 80 mg PO HS [facility] Last Admin: 09/14/19 21:35 Dose: 80 mg Famotidine (Pepcid) 20 mg PEG DAILY [facility] Last Admin: 09/15/19 10:34 Dose: 20 mg Ferrous Sulfate (Feosol) 300 mg GT DAILY [facility] Last Admin: 09/15/19 10:33 Dose: 300 mg Furosemide (Lasix Injection -) 40 mg IVPUSH BID@0600,1400 [facility] Last Admin: 09/14/19 14:59 Dose: 40 mg Vancomycin HCl (Vancomycin (Pre-Docked)) 1,000 mg in 250 mls @ 166.667 mls/hr IVPB BID@0500,1700 [facility]; Protocol Last Admin: 09/15/19 04:21 Dose: 166.667 mls/hr Meropenem 1 gm/ Sodium (Chloride) 100 mls @ 200 mls/hr IVPB Q8H-IV [facility] Insulin Aspart (Novolog Vial Sliding Scale -) 1 vial SQ Q4HPO [facility]; Protocol Last Admin: 09/15/19 10:36 Dose: 2 units Insulin Detemir (Levemir Vial) 20 units SQ [facility] Last Admin: 09/14/19 23:05 Dose: 20 units Insulin Detemir (Levemir Vial) 35 units SQ AM [facility] Last Admin: 09/15/19 07:11 Dose: 35 units Levothyroxine Sodium (Synthroid -) 50 mcg PO ACBK [facility] Last Admin: 09/15/19 07:14 Dose: 50 mcg Metoprolol Tartrate (Lopressor -) 25 mg PO BID [facility] Prednisone (Deltasone -) 30 mg PO DAILY [facility] Last Admin: 09/15/19 10:33 Dose: 30 mg A/P Chronic Respiratory Failure Pneumonia Sepsis COPD Atrial Fibrillation CAD HTN DM Hypothyroidism Diverticulosis Anemia - reculture - antibiotics per ID - inhaled bronchodilators - O2 to keep SpO2 >90% - would hold lasix for now - monitor urine output, creatinine - monitor lytes - rate controlled - continue anticoagulation - PMV as tolerated - spontaneous breathing trials as tolerated - enteral feeds - DVT/GI prophylaxis
--- NOTE | 2019-09-15 12:35 | EKG ---
Test Reason : Blood Pressure : / mmHG Vent. Rate : 077 BPM Atrial Rate : 277 BPM P-R Int : 000 ms QRS Dur : 088 ms QT Int : 408 ms P-R-T Axes : 000 034 084 degrees QTc Int : 461 ms ATRIAL FIBRILLATION NONSPECIFIC T WAVE ABNORMALITY PROLONGED QT ABNORMAL ECG Confirmed by MD SALBADOR, CANDICE ([id number]) on 09/15/2019 12:34:46 PM Referred By: Ani PELAEZ Confirmed By:CANDICE SIU MD
--- NOTE | 2019-09-15 12:37 | EKG ---
Test Reason : Blood Pressure : / mmHG Vent. Rate : 108 BPM Atrial Rate : 182 BPM P-R Int : 000 ms QRS Dur : 078 ms QT Int : 328 ms P-R-T Axes : 000 019 187 degrees QTc Int : 439 ms POOR DATA QUALITY, INTERPRETATION MAY BE ADVERSELY AFFECTED ATRIAL FIBRILLATION WITH RAPID VENTRICULAR RESPONSE MINIMAL VOLTAGE CRITERIA FOR LVH, MAY BE NORMAL VARIANT NONSPECIFIC ST AND T WAVE ABNORMALITY ABNORMAL ECG Confirmed by MD SALBADOR, CANDICE ([id number]) on 09/15/2019 12:37:20 PM Referred By: Confirmed By:CANDICE SIU MD
--- NOTE | 2019-09-15 12:50 | RAPID ---
Physical Examination Vital Signs: Vital Signs Temperature 97.7 F 09/15/19 06:00 Pulse Rate 84 09/15/19 11:00 Respiratory Rate 23 H 09/15/19 12:33 Blood Pressure 87/47 L 09/15/19 11:00 O2 Sat by Pulse Oximetry (%) 100 09/14/19 21:00 Rapid Response called at 1110. Rapid response team arrived immediately to bedside. Rapid response called as patient had decreased responsiveness and hypotension. As per Nurse patient has been alert and talkative at baseline. Vitals: 108/63 MAP 81, 78HR, SpO2 - 95% Physical Exam: General: minimally reactive to physical/verbal stimuli, able to follow commands HEENT: NC/AT, PERRL Neck: Trach in place Cardio: RRR, no murmur noted Respiratory: CTA B/L, no accessory muscle use Extremities: no peripheral edema noted. Thready radial pulse Neuro: obtunded, able to squeeze fingers with both hands, not able to wiggle toes Skin: decreased warmth in extremities Orders: 1L IV fluid bolus CBC, CMP, Mg, Phos CXR EKG Blood cultures, urine culture Patient slowly became more responsive during rapid IV access gained in right and left hand Primary team present in room during rapid, stated that they will get head CT if patient's mental status does not improve further Labs: CBC, BMP 09/14/19 21:30 09/14/19 21:30
[2019-09-15] MEDS: MEROPENEM 1 GM in SODIUM CHLORIDE 100 ML IVPB SCH ×2 (13:10→19:42)
--- NOTE | 2019-09-15 18:03 | PN ---
Progress Note, Physician History of Present Illness: MORE LETHARGIC BUT ABLE TO NOD RAPID RESPONSE CALLED EARLIER BP LABILE NO ACUTE DISTRESS BREATHING NON-LABORED AFEBRILE SPUTUM MRSA/ PSEUDOMONAS/ ESBL - Current Medication List Current Medications: Active Medications Acetaminophen (Tylenol -) 650 mg PO Q6H PRN PRN Reason: pain or fever Last Admin: 09/14/19 21:35 Dose: 650 mg Albuterol/Ipratropium (Duoneb -) 1 amp NEB RQID [facility] Last Admin: 09/15/19 16:14 Dose: 1 amp Amiodarone HCl (Cordarone -) 200 mg PO DAILY [facility] Last Admin: 09/15/19 10:33 Dose: 200 mg Apixaban (Eliquis -) 5 mg PO BID [facility] Last Admin: 09/15/19 10:34 Dose: 5 mg Atorvastatin Calcium (Lipitor -) 80 mg PO HS [facility] Last Admin: 09/14/19 21:35 Dose: 80 mg Famotidine (Pepcid) 20 mg PEG DAILY [facility] Last Admin: 09/15/19 10:34 Dose: 20 mg Ferrous Sulfate (Feosol) 300 mg GT DAILY [facility] Last Admin: 09/15/19 10:33 Dose: 300 mg Vancomycin HCl (Vancomycin (Pre-Docked)) 1,000 mg in 250 mls @ 166.667 mls/hr IVPB BID@0500,1700 [facility]; Protocol Last Admin: 09/15/19 04:21 Dose: 166.667 mls/hr Meropenem 1 gm/ Sodium (Chloride) 100 mls @ 200 mls/hr IVPB Q8H-IV [facility] Last Admin: 09/15/19 13:10 Dose: 200 mls/hr Insulin Aspart (Novolog Vial Sliding Scale -) 1 vial SQ Q4HPO [facility]; Protocol Last Admin: 09/15/19 16:56 Dose: Not Given Insulin Detemir (Levemir Vial) 20 units SQ HS [facility] Last Admin: 09/14/19 23:05 Dose: 20 units Insulin Detemir (Levemir Vial) 35 units SQ AM [facility] Last Admin: 09/15/19 07:11 Dose: 35 units Levothyroxine Sodium (Synthroid -) 50 mcg PO ACBK [facility] Last Admin: 09/15/19 07:14 Dose: 50 mcg Metoprolol Tartrate (Lopressor -) 25 mg PO BID [facility] Prednisone (Deltasone -) 30 mg PO DAILY [facility] Last Admin: 09/15/19 10:33 Dose: 30 mg - Objective Vital Signs: Vital Signs Temperature 98.5 F 09/15/19 14:42 Pulse Rate 49 L 09/15/19 14:42 Respiratory Rate 27 H 09/15/19 16:13 Blood Pressure 123/56 L 09/15/19 14:42 O2 Sat by Pulse Oximetry (%) 100 09/14/19 21:00 Constitutional: Yes: No Distress Eyes: Yes: Conjunctiva Clear Cardiovascular: Yes: Regular Rate and Rhythm, S1, S2 Respiratory: Yes: Diminished Gastrointestinal: Yes: Normal Bowel Sounds, Soft. No: Tenderness Edema: Yes Labs: CBC, BMP 09/14/19 21:30 09/14/19 21:30 INR, PTT INR 1.74 (0.83-1.09) H 09/06/19 17:00 Assessment/Plan S/P RAPID RESPONSE PNEUMONIA SEPSIS SECONDARY TO PNEUMONIA + SPUTUM C/S MDRO CHRONIC RESPIRATORY FAILURE CONTINUE MEROPENEM/ VANCOMYCIN DISCUSSED WITH FAMILY AT BEDSIDE CONTACT PRECAUTIONS
[2019-09-15 18:27] LABS: HEMATOCRIT 28.2 % (35.4-49); HEMOGLOBIN 9.1 GM/dL (11.7-16.9); MCH 29.6 pg (25.7-33.7); MCHC 32.2 g/dl (32.0-35.9); MEAN PLT VOLUME 9.2 fl (7.5-11.1); MONO % 5.1 % (3.8-10.2); NEUT % 91.9 % (42.8-82.8); PLATELET COUNT 388 K/MM3 (134-434); RBC 3.06 M/mm3 (4.00-5.60); RDW 17.9 % (11.9-15.9)
--- NOTE | 2019-09-15 18:31 | CONSULT ---
Consult - text type - Consultation Consultation Note: NEUROLOGY CONSULTATION is greatly appreciated: Events reviewed. Patient examined with his and daughter's at the bedside. This 79 yo RH man with h/o HTN, DM, HLD, PVD, ASHD, AFib, hypothyroidism and COPD is maintained on multiple meds including apixaban. Known to me with OMS, Early Extrapyramidal signs and diabetic peripheral neuropathy all resulting in gait impairment with falls. Last seen 02/23/16. Chronic respiratory failure since cholecystectomy/peritonitis last summer. s/p trache. S/P PEG.Has been in respiratory rehab but in and out of acute care settings with infections recurrent anemia. Now admitted from [facility] Pneumonia possible due to aspiration (witnessed by family). On Meripenem, vancomicin. According to family patient has waxing and waning "lethargy." CT of head (09/15/19) reviewed: Mild atrophy and microvascular changes. TSH= 2.01. W0=704 pg% AMY: S/P Trache. Neck supple. Cor irreg. No Bruits. NEURO: Awake, alert, slow to respond. Follows simple command. CN II-XII: Full velasquez to threat. Full EOM's. No facial. Protrudes tongue in midline. Motor: Arms 2-3/5 proximally and 4/5 distally- symmetrically Legs No mov't prox or distal. Areflexic. Plantars silent Coord: No obvious dystaxia with arm mov'ts. Sensory: grimaces to pinch arms >> legs. IMP: Non-focal exam Full assessment of cognition not possible although a mild-mod OMS is likely present. 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 Waxing and waning status due to Toxic-metabolic encephalopathy Suggest: Add thiamine 250 mg q8H x 3 days. Continue antibiotics, hydration and nutritional support R/O GI bleed (especially while on Apixaban) Begin Bedside PT and mobilize as soon as possible Keep NPO is recurrent aspiration is suspected Thank you very much, Napoleon Tan MD
[2019-09-15 19:19] LABS: ALK PHOS 126 U/L (45-117); ANION GAP 1 MMOL/L (8-16); BILIRUBIN,TOTAL 0.4 mg/dL (0.2-1); BLOOD UREA NITROGEN 54.7 mg/dL (7-18); CALCIUM 8.5 mg/dL (8.5-10.1); CHLORIDE 100 mmol/L (98-107); CO2 > 45 mmol/L (21-32); CREATININE 0.6 mg/dL (0.55-1.3); GLUCOSE,RANDOM 85 mg/dL (74-106); MAGNESIUM 2.7 mg/dL (1.8-2.4); PHOSPHOROUS 2.5 mg/dL (2.5-4.9); POTASSIUM 4.5 mmol/L (3.5-5.1); SGOT/AST 34 U/L (15-37); SGPT/ALT 57 U/L (13-61); SODIUM 146 mmol/L (136-145); TOT PROT 5.9 g/dl (6.4-8.2)
[2019-09-15 20:55] LABS: PLATELET ESTIMATE ADEQUATE
[2019-09-15] MEDS: ATORVASTATIN CA 80 MG TABLET (FP) PO SCH (22:24)
[2019-09-16] MEDS ORDERED: MEROPENEM 1 GM VIAL (RESTRICTED TO ID) IVPB ONE ×2 (01:48→18:23)
[2019-09-16] MEDS ORDERED: SODIUM CHLORIDE 100 ML IVPB ONE ×2 (01:48→18:23)
[2019-09-16] MEDS: INSULIN SLIDING SCALE (NOVOLOG) 1 VIAL SQ SCH ×6 (02:09→22:50)
[2019-09-16] MEDS: MEROPENEM 1 GM in SODIUM CHLORIDE 100 ML IVPB SCH ×3 (02:10→18:34)
[2019-09-16] MEDS: VANCOMYCIN 1 GRAM (PRE-DOCKED) 1,000 MG/250 ML BAG IVPB SCH ×2 (04:40→19:05)
[2019-09-16] MEDS: INSULIN (LEVEMIR) 100 UNITS/ML UNITS SQ SCH ×2 (06:12→22:50)
[2019-09-16] MEDS: LEVOTHYROXINE NA 50 MCG TABLET (FP) PO SCH (06:12)
[2019-09-16] MEDS: ALBUTEROL SO4 2.5/IPRATROPIUM 0.5 INH SOL 3 ML VIAL.NEB. NEB SCH ×4 (08:15→20:33)
[2019-09-16 09:08] LABS: BASO % 0.4 % (0-2.0); EOS % 0.9 % (0-4.5); HEMATOCRIT 28.6 % (35.4-49); HEMOGLOBIN 9.2 GM/dL (11.7-16.9); LYMPH % 8.3 % (8-40); MCH 29.6 pg (25.7-33.7); MCHC 32.1 g/dl (32.0-35.9); MEAN CELL VOLUME 92.1 fl (80-96); MEAN PLT VOLUME 9.7 fl (7.5-11.1); MONO % 10.5 % (3.8-10.2); NEUT % 79.9 % (42.8-82.8); PLATELET COUNT 350 K/MM3 (134-434); RBC 3.11 M/mm3 (4.00-5.60); RDW 18.4 % (11.9-15.9); WHITE BLOOD COUNT 14.6 K/mm3 (4.0-10.0)
[2019-09-16 09:29] LABS: BILIRUBIN,TOTAL 0.4 mg/dL (0.2-1); BLOOD UREA NITROGEN 47.7 mg/dL (7-18); CALCIUM 8.3 mg/dL (8.5-10.1); CREATININE 0.5 mg/dL (0.55-1.3); POTASSIUM 4.4 mmol/L (3.5-5.1); TOT PROT 5.7 g/dl (6.4-8.2)
[2019-09-16 10:24] LABS: ANISOCYTOSIS 1+; MACROCYTOSIS 0; PLATELET ESTIMATE NORMAL
[2019-09-16] MEDS: APIXABAN 5 MG TABLET PO SCH ×2 (10:43→22:50)
[2019-09-16] MEDS: FERROUS SO4 300 MG/5 ML ORAL SOLN UNIT DOSE CUPS GT SCH (10:43)
[2019-09-16] MEDS: predniSONE 10 MG TABLET (UD) PO SCH (10:43)
[2019-09-16] MEDS: AMIODARONE HCL 200 MG TABLET PO SCH (10:43)
[2019-09-16] MEDS: FAMOTIDINE 40 MG/5 ML ORAL SUSPENSION PEG SCH (10:43)
--- NOTE | 2019-09-16 11:34 | PN ---
Progress Note, Physician Chief Complaint: Pneumonia Sepsis Uncontrolled Afib History of Present Illness: NAD alert and oriented today, knows he's in the hospital and it's September Poor IV access, Last IV infiltrated. Needs Meropenem + Vanco for ESBL in [place] - Current Medication List Current Medications: Active Medications Acetaminophen (Tylenol -) 650 mg PO Q6H PRN PRN Reason: pain or fever Last Admin: 09/14/19 21:35 Dose: 650 mg Albuterol/Ipratropium (Duoneb -) 1 amp NEB RQID [facility] Last Admin: 09/16/19 08:15 Dose: 1 amp Amiodarone HCl (Cordarone -) 200 mg PO DAILY [facility] Last Admin: 09/16/19 10:43 Dose: 200 mg Apixaban (Eliquis -) 5 mg PO BID [facility] Last Admin: 09/16/19 10:43 Dose: 5 mg Atorvastatin Calcium (Lipitor -) 80 mg PO HS [facility] Last Admin: 09/15/19 22:24 Dose: 80 mg Famotidine (Pepcid) 20 mg PEG DAILY [facility] Last Admin: 09/16/19 10:43 Dose: 20 mg Ferrous Sulfate (Feosol) 300 mg GT DAILY [facility] Last Admin: 09/16/19 10:43 Dose: 300 mg Vancomycin HCl (Vancomycin (Pre-Docked)) 1,000 mg in 250 mls @ 166.667 mls/hr IVPB BID@0500,1700 [facility]; Protocol Last Admin: 09/16/19 04:40 Dose: 166.667 mls/hr Meropenem 1 gm/ Sodium (Chloride) 100 mls @ 200 mls/hr IVPB Q8H-IV [facility] Last Admin: 09/16/19 02:10 Dose: 200 mls/hr Insulin Aspart (Novolog Vial Sliding Scale -) 1 vial SQ Q4HPO [facility]; Protocol Last Admin: 09/16/19 05:50 Dose: Not Given Insulin Detemir (Levemir Vial) 20 units SQ HS [facility] Last Admin: 09/15/19 22:43 Dose: 20 units Insulin Detemir (Levemir Vial) 35 units SQ AM [facility] Last Admin: 09/16/19 06:12 Dose: 35 units Levothyroxine Sodium (Synthroid -) 50 mcg PO ACBK [facility] Last Admin: 09/16/19 06:12 Dose: 50 mcg Metoprolol Tartrate (Lopressor -) 25 mg PO BID [facility] Prednisone (Deltasone -) 30 mg PO DAILY [facility] Last Admin: 09/16/19 10:43 Dose: 30 mg Thiamine HCl (Vitamin B1 Injection -) 200 mg IM DAILY [facility] - Objective Vital Signs: Vital Signs Temperature 98.1 F 09/16/19 10:42 Pulse Rate 109 H 09/16/19 10:42 Respiratory Rate 18 09/16/19 10:42 Blood Pressure 149/74 09/16/19 10:42 O2 Sat by Pulse Oximetry (%) 100 09/15/19 21:00 Constitutional: Yes: Well Nourished, No Distress, Calm Cardiovascular: Yes: Regular Rate and Rhythm Respiratory: Yes: Regular, Mechanically Ventilated, Rhonchi (diffuse) Gastrointestinal: Yes: Normal Bowel Sounds, Soft Genitourinary: Yes: Incontinence Musculoskeletal: Yes: Other (generalized atrophy) Extremities: Yes: WNL Edema: No Peripheral Pulses WNL: Yes Neurological: Yes: Alert, Oriented Psychiatric: Yes: Alert, Oriented Labs: CBC, BMP 09/16/19 08:10 09/16/19 08:10 INR, PTT INR 1.74 (0.83-1.09) H 09/06/19 17:00 Problem List - Problems (1) Anxiety Assessment/Plan: -Unable to start SSRI 2/2 to interaction with Amiodarone that may lead to QT prolongation Problems reviewed: Yes Code(s): F41.9 - ANXIETY DISORDER, UNSPECIFIED (2) Lethargy Assessment/Plan: -much improved -CT head negative -Seen by Neurology -Thiamine 200 mg IVPB daily x 3 doses -EKG no change Problems reviewed: Yes Code(s): R53.83 - OTHER FATIGUE Assessment/Plan (1) Paroxysmal A-fib Assessment/Plan: -Chronic, tachycardiac -Hold Lopressor -Continue Eliquis -Continue Amiodarone Code(s): I48.0 - PAROXYSMAL ATRIAL FIBRILLATION (2) Sepsis Assessment/Plan: -Likely due to Pneumonia -Meropenem day 6 -Vancomycin day 7 -ID consult -Cultures: Microbiology 09/06/19 17:00 Blood - Peripheral Venous Blood Culture - Final NO GROWTH AFTER 5 DAYS INCUBATION 09/06/19 17:15 Blood - Peripheral Venous Blood Culture - Final NO GROWTH AFTER 5 DAYS INCUBATION 09/07/19 05:30 Sputum - Endotrachea Suction/Ventilator Gram Stain - Final 09/07/19 05:30 Sputum - Endotrachea Suction/Ventilator Sputum Culture - Final S Aureus Pseudomonas Aeruginosa Klebsiella Pneumoniae - Esbl 09/07/19 05:30 Urine For Antigen Detection Legionella Antigen - Final 09/07/19 05:30 Urine For Antigen Detection Streptococcus pneumoniae Antigen (M - Final 09/07/19 06:30 Urine - Urine Clean Catch Urine Culture - Final NO GROWTH OBTAINED Code(s): A41.9 - SEPSIS, UNSPECIFIED ORGANISM Qualifiers: Sepsis type: sepsis due to unspecified organism Sepsis acute organ dysfunction status: unspecified Qualified Code(s): A41.9 - Sepsis, unspecified organism (3) Pneumonia Assessment/Plan: -IV abd -ID consult -afebrile -Pulmonary on board -Bronchodilators Code(s): J18.9 - PNEUMONIA, UNSPECIFIED ORGANISM Qualifiers: Pneumonia type: due to unspecified organism Laterality: bilateral Lung location: lower lobe of lung Qualified Code(s): J18.9 - Pneumonia, unspecified organism (4) Chronic respiratory failure with hypoxia and hypercapnia Assessment/Plan: -Pulmonary on board -Bronchodilators Code(s): J96.11 - CHRONIC RESPIRATORY FAILURE WITH HYPOXIA; J96.12 - CHRONIC RESPIRATORY FAILURE WITH HYPERCAPNIA (5) Anemia Assessment/Plan: -Stool Guaiac negative -Iron% low -started Ferrous sulfate daily -monitor trend -H/H stable Code(s): D64.9 - ANEMIA, UNSPECIFIED (6) CHF (congestive heart failure) Assessment/Plan: -Continue IV furosemide 40 mg BID -Repeat CXR today yesterday negative Code(s): I50.9 - HEART FAILURE, UNSPECIFIED (7) COPD (chronic obstructive pulmonary disease) Assessment/Plan: -on prednisone via GT- tapering dose -Bronchodilators Code(s): J44.9 - CHRONIC OBSTRUCTIVE PULMONARY DISEASE, UNSPECIFIED (8) Diabetes mellitus Assessment/Plan: -A1c at 7.1 -BGM AC HS -ISS -Levemir 26 U AM and 20 U HS -Endocrine consult appreciated Code(s): E11.9 - TYPE 2 DIABETES MELLITUS WITHOUT COMPLICATIONS
--- NOTE | 2019-09-16 12:04 | PN ---
Progress Note (short form) - Note Progress Note: PULMONARY Mental status improving, more alert today. Vital Signs Period Temp Pulse Resp BP Sys/Wynne Pulse Ox Last 24 Hr 97.8 F-99.1 F 48-109 16-27 114-158/56-79 100 Gen: vented, awake Heart: irregular Lung: scattered rhonchi Abd: soft, nontender Ext: + edema CBC, BMP 09/16/19 08:10 09/16/19 08:10 Active Medications Acetaminophen (Tylenol -) 650 mg PO Q6H PRN PRN Reason: pain or fever Last Admin: 09/14/19 21:35 Dose: 650 mg Albuterol/Ipratropium (Duoneb -) 1 amp NEB RQID [facility] Last Admin: 09/16/19 08:15 Dose: 1 amp Amiodarone HCl (Cordarone -) 200 mg PO DAILY [facility] Last Admin: 09/16/19 10:43 Dose: 200 mg Apixaban (Eliquis -) 5 mg PO BID [facility] Last Admin: 09/16/19 10:43 Dose: 5 mg Atorvastatin Calcium (Lipitor -) 80 mg PO HS [facility] Last Admin: 09/15/19 22:24 Dose: 80 mg Famotidine (Pepcid) 20 mg PEG DAILY [facility] Last Admin: 09/16/19 10:43 Dose: 20 mg Ferrous Sulfate (Feosol) 300 mg GT DAILY [facility] Last Admin: 09/16/19 10:43 Dose: 300 mg Vancomycin HCl (Vancomycin (Pre-Docked)) 1,000 mg in 250 mls @ 166.667 mls/hr IVPB BID@0500,1700 [facility]; Protocol Last Admin: 09/16/19 04:40 Dose: 166.667 mls/hr Meropenem 1 gm/ Sodium (Chloride) 100 mls @ 200 mls/hr IVPB Q8H-IV [facility] Last Admin: 09/16/19 02:10 Dose: 200 mls/hr Insulin Aspart (Novolog Vial Sliding Scale -) 1 vial SQ Q4HPO [facility]; Protocol Last Admin: 09/16/19 11:55 Dose: Not Given Insulin Detemir (Levemir Vial) 20 units SQ HS [facility] Last Admin: 09/15/19 22:43 Dose: 20 units Insulin Detemir (Levemir Vial) 35 units SQ AM [facility] Last Admin: 09/16/19 06:12 Dose: 35 units Levothyroxine Sodium (Synthroid -) 50 mcg PO ACBK [facility] Last Admin: 09/16/19 06:12 Dose: 50 mcg Metoprolol Tartrate (Lopressor -) 25 mg PO BID [facility] Prednisone (Deltasone -) 30 mg PO DAILY [facility] Last Admin: 09/16/19 10:43 Dose: 30 mg Thiamine HCl (Vitamin B1 Injection -) 200 mg IM DAILY [facility] Stop: 09/18/19 10:01 A/P Chronic Respiratory Failure Pneumonia Sepsis COPD Atrial Fibrillation CAD HTN DM Hypothyroidism Diverticulosis Anemia - antibiotics per ID - inhaled bronchodilators - O2 to keep SpO2 >90% - continue to hold lasix for now - monitor urine output, creatinine - monitor lytes - rate controlled - continue anticoagulation - PMV as tolerated - spontaneous breathing trials as tolerated - enteral feeds - DVT/GI prophylaxis
[2019-09-16] MEDS: THIAMINE HCL 200 MG/2 ML VIAL IM SCH (12:35)
--- NOTE | 2019-09-16 14:53 | PN ---
Progress Note, Physician Chief Complaint: The patieint appears comfortable without acute distress. History of Present Illness: 79 year old man with a PMHx of chronic respiratory failure s/p Trach, COPD, chronic anemia (blood transfusions), reported pAfib on amiodarone, metoprolol and eliquis, HTN, HLD, DM, GERD, nephrolithasis, squamous Ca (Back,2017) admitted with sepsis, acute on chronic respiratory failure, pneumonia, anemia. During admission pt noted to have intermittent tachycardia in afib up to 130bpm. He is on Lopressor 25mg bid and amiodarone at the [place]. His lopressor was increased to 50mg bid for tachycardia. Rapid response was called 09/15/19 for bradycardia, dropped to 30s and HR improved back to baseline. - Current Medication List Current Medications: Active Medications Acetaminophen (Tylenol -) 650 mg PO Q6H PRN PRN Reason: pain or fever Last Admin: 09/14/19 21:35 Dose: 650 mg Albuterol/Ipratropium (Duoneb -) 1 amp NEB RQID [facility] Last Admin: 09/16/19 11:00 Dose: 1 amp Amiodarone HCl (Cordarone -) 200 mg PO DAILY [facility] Last Admin: 09/16/19 10:43 Dose: 200 mg Apixaban (Eliquis -) 5 mg PO BID [facility] Last Admin: 09/16/19 10:43 Dose: 5 mg Atorvastatin Calcium (Lipitor -) 80 mg PO HS [facility] Last Admin: 09/15/19 22:24 Dose: 80 mg Famotidine (Pepcid) 20 mg PEG DAILY [facility] Last Admin: 09/16/19 10:43 Dose: 20 mg Ferrous Sulfate (Feosol) 300 mg GT DAILY [facility] Last Admin: 09/16/19 10:43 Dose: 300 mg Vancomycin HCl (Vancomycin (Pre-Docked)) 1,000 mg in 250 mls @ 166.667 mls/hr IVPB BID@0500,1700 [facility]; Protocol Last Admin: 09/16/19 04:40 Dose: 166.667 mls/hr Meropenem 1 gm/ Sodium (Chloride) 100 mls @ 200 mls/hr IVPB Q8H-IV [facility] Last Admin: 09/16/19 02:10 Dose: 200 mls/hr Insulin Aspart (Novolog Vial Sliding Scale -) 1 vial SQ Q4HPO [facility]; Protocol Last Admin: 09/16/19 11:55 Dose: Not Given Insulin Detemir (Levemir Vial) 20 units SQ HS [facility] Last Admin: 09/15/19 22:43 Dose: 20 units Insulin Detemir (Levemir Vial) 35 units SQ AM [facility] Last Admin: 09/16/19 06:12 Dose: 35 units Levothyroxine Sodium (Synthroid -) 50 mcg PO ACBK [facility] Last Admin: 09/16/19 06:12 Dose: 50 mcg Metoprolol Tartrate (Lopressor -) 25 mg PO BID [facility] Prednisone (Deltasone -) 30 mg PO DAILY [facility] Last Admin: 09/16/19 10:43 Dose: 30 mg Thiamine HCl (Vitamin B1 Injection -) 200 mg IM DAILY [facility] Stop: 09/18/19 10:01 Last Admin: 09/16/19 12:35 Dose: 200 mg - Objective Vital Signs: Vital Signs Temperature 98.1 F 09/16/19 10:42 Pulse Rate 109 H 09/16/19 10:42 Respiratory Rate 18 09/16/19 10:42 Blood Pressure 149/74 09/16/19 10:42 O2 Sat by Pulse Oximetry (%) 100 09/15/19 21:00 General: Well developed. Chronic ill. No acute distress. Head: Normocephalic. Atraumatic, Neck: Trach in place and connected. Heart: Normal S1, S2: Irregular rhythm and mild tachycardia. Lungs: Symmetrical air entry. Coarse BS with rhonchii. Abdomen: Soft. Bowel sound positive. Non tender. No masses. Extremities: Trace leg edema and dependent edema. Labs: CBC, BMP 09/16/19 08:10 09/16/19 08:10 INR, PTT INR 1.74 (0.83-1.09) H 09/06/19 17:00 Assessment/Plan 79 year old man with a PMHx of chronic respiratory failure s/p Trach, COPD, chronic anemia (blood transfusions), reported pAfib on amiodarone, metoprolol and eliquis, HTN, HLD, DM, GERD, nephrolithasis, squamous Ca (Back,2016) admitted with sepsis, acute on chronic respiratory failure, pneumonia, anemia. During admission pt noted to have intermittent tachycardia in afib up to 130bpm. He is on Lopressor 25mg bid and amiodarone at the [place]. His lopressor was increased to 50mg bid for tachycardia. Rapid response was called 09/15/19 for bradycardia, dropped to 30s and HR improved back to baseline. Afib-paroxysmal -Persistent afib during admission -HR above goal at times likely driven by underlying illnesses with sepsis, anemia -Continue lopressor 25 mg bid. -Continue amiodarone for now -Would not aggressively treat mild tachycardia as it is likely secondary to sepsis and anemia -Can allow for mild tachycardia ie HR <110bpm -Continue eliquis if safe to do so. Please do not hesitate to call us for reconsult at any time if any further questions or additional issue arises regarding this patient.
--- NOTE | 2019-09-16 17:35 | RAPID ---
Physical Examination Vital Signs: Vital Signs Temperature 98.7 F 09/16/19 13:00 Pulse Rate 108 H 09/16/19 13:00 Respiratory Rate 21 H 09/16/19 13:25 Blood Pressure 147/82 09/16/19 13:00 O2 Sat by Pulse Oximetry (%) 100 09/15/19 21:00 98.3F, 152/73, HR 120s, BGM 120 Findings/Remarks: Rapid Response called for AMS, tachy 120s, diaphoresis As per daughter and : they had concern for diaphoresis and clammy skin. Pt has been more lethargic in the past 3days, mouthing names of family, not moving extremities purposefully. Cannot speak as he has tracheostomy. Admitted for sespsis 2/2 PNA(pseudomonas, ESBL Kleb). Seen by Neuro yesterday, who thought lethargy dt sepsis Constitutional: Yes: No Distress, Diaphoresis (mild sweating) Eyes: Yes: Conjunctiva Clear, Other (tracking my face) HENT: Yes: Atraumatic Neck: Yes: Other (tracheostomy in place). No: Lymphadenopathy Cardiovascular: Yes: Tachycardia, Pulse Irregular, Other (sternotomy scar). No : Murmur Respiratory: Yes: Other (mildly coarse b/l lung sounds) Gastrointestinal: Yes: Soft, Other (gastrostomy feeding tube in RLQ). No: Tenderness Extremities: Yes: Other (thin lower extremities) Neurological: Yes: Other (mouthing words(Name-Adria, year-2019). Opening and closing hands, dorsi/plantarflexion of b/l toes on command. Voltage Inspector strength is diminished) Labs: CBC, BMP 09/16/19 08:10 09/16/19 08:10 Rapid Response - Rapid Response Assessment: Known to Neuro(Britney) for Opsoclonus myoclonus syndrome(OMS). CTH(09/15/19) noted to be neg for intracranial path. Noted Rapid Response yesterday(09/15/19) for bradycardia which improved. Cardiology increased Lopressor for Afib with goal HR <110. Outcome: - EKG(09/16/19): mostly unchanged from 09/15/19 - troponin ordered - ABG ordered
[2019-09-16 18:15] LABS: ARTERIAL BLD GAS O2 SATURATION 99.6 % (95-98); ARTERIAL BLOOD GAS pH 7.25 (7.35-7.45)
[2019-09-16 18:18] LABS: ALLENS TEST POSITIVE; ARTERIAL BLOOD GAS PO2 354 mmHg (80-100)
[2019-09-16 18:20] LABS: ARTERIAL BLOOD GAS PCO2 > 100 mmHg (35-45)
[2019-09-16] MEDS ORDERED: PT OWN MED DRAWER 7, Y5N ONE (19:22)
[2019-09-16 22:14] LABS: ARTERIAL BLD GAS O2 SATURATION 99.2 % (95-98); ARTERIAL BLOOD GAS BASE EXCESS 16.6 meq/l (-2-2); ARTERIAL BLOOD GAS PCO2 60.7 mmHg (35-45); ARTERIAL BLOOD GAS PO2 142 mmHg (80-100); ARTERIAL BLOOD GAS pH 7.46 (7.35-7.45)
[2019-09-16 22:16] LABS: ALLENS TEST POSITIVE
[2019-09-16] MEDS: ATORVASTATIN CA 80 MG TABLET (FP) PO SCH (22:50)
--- NOTE | 2019-09-16 23:46 | PN ---
Progress Note, Physician Chief Complaint: weak to respond,recent event noted - Current Medication List Current Medications: Active Medications Acetaminophen (Tylenol -) 650 mg PO Q6H PRN PRN Reason: pain or fever Last Admin: 09/14/19 21:35 Dose: 650 mg Albuterol/Ipratropium (Duoneb -) 1 amp NEB RQID [facility] Last Admin: 09/16/19 20:33 Dose: 1 amp Amiodarone HCl (Cordarone -) 200 mg PO DAILY [facility] Last Admin: 09/16/19 10:43 Dose: 200 mg Apixaban (Eliquis -) 5 mg PO BID [facility] Last Admin: 09/16/19 22:50 Dose: 5 mg Atorvastatin Calcium (Lipitor -) 80 mg PO HS [facility] Last Admin: 09/16/19 22:50 Dose: 80 mg Famotidine (Pepcid) 20 mg PEG DAILY [facility] Last Admin: 09/16/19 10:43 Dose: 20 mg Ferrous Sulfate (Feosol) 300 mg GT DAILY [facility] Last Admin: 09/16/19 10:43 Dose: 300 mg Vancomycin HCl (Vancomycin (Pre-Docked)) 1,000 mg in 250 mls @ 166.667 mls/hr IVPB BID@0500,1700 [facility]; Protocol Last Admin: 09/16/19 19:05 Dose: 166.667 mls/hr Meropenem 1 gm/ Sodium (Chloride) 100 mls @ 200 mls/hr IVPB Q8H-IV [facility] Last Admin: 09/16/19 18:34 Dose: 200 mls/hr Insulin Aspart (Novolog Vial Sliding Scale -) 1 vial SQ ACHS [facility]; Protocol Insulin Detemir (Levemir Vial) 30 units SQ AM [facility] Insulin Detemir (Levemir Vial) 15 units SQ HS [facility] Levothyroxine Sodium (Synthroid -) 50 mcg PO ACBK [facility] Last Admin: 09/16/19 06:12 Dose: 50 mcg Metoprolol Tartrate (Lopressor -) 25 mg PO BID [facility] Prednisone (Deltasone -) 30 mg PO DAILY [facility] Last Admin: 09/16/19 10:43 Dose: 30 mg Thiamine HCl (Vitamin B1 Injection -) 200 mg IM DAILY [facility] Stop: 09/18/19 10:01 Last Admin: 09/16/19 12:35 Dose: 200 mg - Objective Vital Signs: Vital Signs Temperature 97.8 F 09/16/19 22:00 Pulse Rate 102 H 09/16/19 22:00 Respiratory Rate 16 09/16/19 20:32 Blood Pressure 127/55 L 09/16/19 22:00 O2 Sat by Pulse Oximetry (%) 100 09/15/19 21:00 Constitutional: Yes: Mild Distress Eyes: Yes: EOM Intact HENT: Yes: Normocephalic Neck: Yes: Trachea Midline Cardiovascular: Yes: Bradycardia Respiratory: Yes: Mechanically Ventilated, Poor Air Entry, Tachypnea Gastrointestinal: Yes: Normal Bowel Sounds ...Rectal Exam: Yes: Deferred Genitourinary: Yes: WNL Musculoskeletal: Yes: Muscle Pain, Muscle Weakness Edema: No Neurological: Yes: Lethargy, Weakness Labs: CBC, BMP 09/16/19 08:10 09/16/19 08:10 INR, PTT INR 1.74 (0.83-1.09) H 09/06/19 17:00 Problem List - Problems (1) Type 2 diabetes mellitus with diabetic autonomic (poly)neuropathy Code(s): E11.43 - TYPE 2 DIABETES W DIABETIC AUTONOMIC (POLY)NEUROPATHY Qualifiers: Diabetes mellitus manager intermediate insulin use: with manager intermediate use Qualified Code( s): E11.43 - Type 2 diabetes mellitus with diabetic autonomic (poly)neuropathy; Z79.4 - long term care social worker (current) use of insulin (2) Anemia Code(s): D64.9 - ANEMIA, UNSPECIFIED Qualifiers: Anemia type: B12 deficiency (3) CHF (congestive heart failure) Code(s): I50.9 - HEART FAILURE, UNSPECIFIED (4) COPD (chronic obstructive pulmonary disease) Code(s): J44.9 - CHRONIC OBSTRUCTIVE PULMONARY DISEASE, UNSPECIFIED (5) Chronic respiratory failure with hypoxia and hypercapnia Code(s): J96.11 - CHRONIC RESPIRATORY FAILURE WITH HYPOXIA; J96.12 - CHRONIC RESPIRATORY FAILURE WITH HYPERCAPNIA (6) Diabetes mellitus Code(s): E11.9 - TYPE 2 DIABETES MELLITUS WITHOUT COMPLICATIONS (7) GERD (gastroesophageal reflux disease) Code(s): K21.9 - GASTRO-ESOPHAGEAL REFLUX DISEASE WITHOUT ESOPHAGITIS Assessment/Plan Current Active Problems Anemia (Acute) Anxiety (Acute) CHF (congestive heart failure) (Acute) COPD (chronic obstructive pulmonary disease) (Acute) Chronic respiratory failure with hypoxia and hypercapnia (Acute) Diabetes mellitus (Acute) GERD (gastroesophageal reflux disease) (Acute) HLD (hyperlipidemia) (Acute) HTN (hypertension) (Acute) Lethargy (Acute) Paroxysmal A-fib (Acute) Pneumonia (Acute) Sepsis (Acute) Type 2 diabetes mellitus with diabetic autonomic (poly)neuropathy (Acute) Abnormal Lab Results 09/16/19 09/16/19 09/16/19 08:10 08:10 17:45 WBC 14.6 H RBC 3.11 L Hgb 9.2 L Hct 28.6 L RDW 18.4 H Absolute Neuts (auto) 11.7 H Neutrophils % (Manual) 86.0 H Lymphocytes % (Manual) 6.0 L D Monocytes % 10.5 H D ABG pH 7.25 L ABG pCO2 at Pt Temp > 100 H* ABG pO2 at Pt Temp 354 H ABG HCO3 ABG O2 Sat (Measured) 99.6 H ABG Base Excess Carbon Dioxide 42 H Anion Gap 1 L BUN 47.7 H Creatinine 0.5 L Random Glucose 120 H Calcium 8.3 L AST 64 H ALT 72 H Alkaline Phosphatase 137 H Total Protein 5.7 L Albumin 2.0 L 09/16/19 22:00 WBC RBC Hgb Hct RDW Absolute Neuts (auto) Neutrophils % (Manual) Lymphocytes % (Manual) Monocytes % ABG pH 7.46 H ABG pCO2 at Pt Temp 60.7 H ABG pO2 at Pt Temp 142 H ABG HCO3 42.5 H ABG O2 Sat (Measured) 99.2 H ABG Base Excess 16.6 H Carbon Dioxide Anion Gap BUN Creatinine Random Glucose Calcium AST ALT Alkaline Phosphatase Total Protein Albumin Laboratory Tests 09/16/19 09/16/19 09/16/19 05:35 11:53 16:47 POC Glucometer 126 98 120 09/16/19 22:49 POC Glucometer 233 plan: levemir 30units am levemir 10units hs bgm qid novolog scale supportive care
[2019-09-17] MEDS ORDERED: MEROPENEM 1 GM VIAL (RESTRICTED TO ID) IVPB ONE ×2 (02:51→10:17)
[2019-09-17] MEDS ORDERED: SODIUM CHLORIDE 100 ML IVPB ONE ×2 (02:51→10:18)
[2019-09-17] MEDS: MEROPENEM 1 GM in SODIUM CHLORIDE 100 ML IVPB SCH ×2 (03:08→10:34)
[2019-09-17] MEDS: LEVOTHYROXINE NA 50 MCG TABLET (FP) PO SCH (06:14)
[2019-09-17] MEDS: VANCOMYCIN 1 GRAM (PRE-DOCKED) 1,000 MG/250 ML BAG IVPB SCH (06:14)
[2019-09-17] MEDS: INSULIN SLIDING SCALE (NOVOLOG) 1 VIAL SQ SCH ×3 (06:16→17:01)
[2019-09-17] MEDS: INSULIN (LEVEMIR) 100 UNITS/ML UNITS SQ SCH (06:26)
[2019-09-17] MEDS ORDERED: INSULIN (LEVEMIR) 100 UNITS/ML UNITS SQ SCH ×4 (07:00→22:00)
[2019-09-17] MEDS: ALBUTEROL SO4 2.5/IPRATROPIUM 0.5 INH SOL 3 ML VIAL.NEB. NEB SCH ×4 (08:00→20:05)
[2019-09-17] MEDS: APIXABAN 5 MG TABLET PO SCH (10:33)
[2019-09-17] MEDS: THIAMINE HCL 200 MG/2 ML VIAL IM SCH (10:33)
[2019-09-17] MEDS: FAMOTIDINE 40 MG/5 ML ORAL SUSPENSION PEG SCH (10:33)
[2019-09-17] MEDS: predniSONE 10 MG TABLET (UD) PO SCH (10:34)
[2019-09-17] MEDS: AMIODARONE HCL 200 MG TABLET PO SCH (10:34)
[2019-09-17] MEDS: FERROUS SO4 300 MG/5 ML ORAL SOLN UNIT DOSE CUPS GT SCH (10:35)
--- NOTE | 2019-09-17 10:39 | PN ---
Progress Note (short form) - Note Progress Note: PULMONARY Awake, alert, vented. Denies shortness of breath. Vital Signs Period Temp Pulse Resp BP Sys/Wynne Pulse Ox Last 24 Hr 97.8 F-99.1 F 79-109 16-22 123-154/55-82 98-98 Gen: vented, awake Heart: irregular Lung: scattered rhonchi Abd: soft, nontender Ext: + edema CBC, BMP 09/16/19 08:10 09/16/19 08:10 Active Medications Acetaminophen (Tylenol -) 650 mg PO Q6H PRN PRN Reason: pain or fever Last Admin: 09/14/19 21:35 Dose: 650 mg Albuterol/Ipratropium (Duoneb -) 1 amp NEB RQID [facility] Last Admin: 09/17/19 08:00 Dose: 1 amp Amiodarone HCl (Cordarone -) 200 mg PO DAILY [facility] Last Admin: 09/17/19 10:34 Dose: 200 mg Apixaban (Eliquis -) 5 mg PO BID [facility] Last Admin: 09/17/19 10:33 Dose: 5 mg Atorvastatin Calcium (Lipitor -) 80 mg PO HS [facility] Last Admin: 09/16/19 22:50 Dose: 80 mg Famotidine (Pepcid) 20 mg PEG DAILY [facility] Last Admin: 09/17/19 10:33 Dose: 20 mg Ferrous Sulfate (Feosol) 300 mg GT DAILY [facility] Last Admin: 09/17/19 10:35 Dose: 300 mg Vancomycin HCl (Vancomycin (Pre-Docked)) 1,000 mg in 250 mls @ 166.667 mls/hr IVPB BID@0500,1700 [facility]; Protocol Last Admin: 09/17/19 06:14 Dose: 166.667 mls/hr Meropenem 1 gm/ Sodium (Chloride) 100 mls @ 200 mls/hr IVPB Q8H-IV [facility] Last Admin: 09/17/19 10:34 Dose: 200 mls/hr Insulin Aspart (Novolog Vial Sliding Scale -) 1 vial SQ ACHS [facility]; Protocol Last Admin: 09/17/19 06:16 Dose: Not Given Insulin Detemir (Levemir Vial) 30 units SQ AM [facility] Last Admin: 09/17/19 06:26 Dose: 30 units Insulin Detemir (Levemir Vial) 10 units SQ HS [facility] Levothyroxine Sodium (Synthroid -) 50 mcg PO ACBK [facility] Last Admin: 09/17/19 06:14 Dose: 50 mcg Metoprolol Tartrate (Lopressor -) 25 mg PO BID [facility] Prednisone (Deltasone -) 30 mg PO DAILY [facility] Last Admin: 09/17/19 10:34 Dose: 30 mg Thiamine HCl (Vitamin B1 Injection -) 200 mg IM DAILY [facility] Stop: 09/18/19 10:01 Last Admin: 09/17/19 10:33 Dose: 200 mg A/P Chronic Respiratory Failure Pneumonia Sepsis COPD Atrial Fibrillation CAD HTN DM Hypothyroidism Diverticulosis Anemia - antibiotics per ID - inhaled bronchodilators - O2 to keep SpO2 >90% - can resume lasix - monitor urine output, creatinine - monitor lytes - rate controlled - continue anticoagulation - PMV as tolerated - spontaneous breathing trials as tolerated - enteral feeds - DVT/GI prophylaxis
[2019-09-17] MEDS: FUROSEMIDE 40 MG/4 ML INJECTABLE VIAL IVPUSH SCH (10:53)
--- NOTE | 2019-09-17 11:57 | EKG ---
Test Reason : Blood Pressure : / mmHG Vent. Rate : 112 BPM Atrial Rate : 300 BPM P-R Int : 000 ms QRS Dur : 088 ms QT Int : 292 ms P-R-T Axes : 000 023 145 degrees QTc Int : 398 ms ATRIAL FIBRILLATION WITH RAPID VENTRICULAR RESPONSE NONSPECIFIC ST AND T WAVE ABNORMALITY ABNORMAL ECG WHEN COMPARED WITH ECG OF 15-SEP-2019 11:45, NO SIGNIFICANT CHANGE WAS FOUND Confirmed by AUDRA MULTANI MD ([id number]) on 09/17/2019 11:56:58 AM Referred By: Confirmed By:AUDRA MULTANI MD
--- NOTE | 2019-09-17 12:17 | PN ---
Progress Note, Physician Chief Complaint: Pneumonia Sepsis Uncontrolled Afib History of Present Illness: NAD alert and oriented today, knows he's in the hospital and it's September - Current Medication List Current Medications: Active Medications Acetaminophen (Tylenol -) 650 mg PO Q6H PRN PRN Reason: pain or fever Last Admin: 09/14/19 21:35 Dose: 650 mg Albuterol/Ipratropium (Duoneb -) 1 amp NEB RQID [facility] Last Admin: 09/17/19 12:00 Dose: 1 amp Amiodarone HCl (Cordarone -) 200 mg PO DAILY [facility] Last Admin: 09/17/19 10:34 Dose: 200 mg Apixaban (Eliquis -) 5 mg PO BID [facility] Last Admin: 09/17/19 10:33 Dose: 5 mg Atorvastatin Calcium (Lipitor -) 80 mg PO HS [facility] Last Admin: 09/16/19 22:50 Dose: 80 mg Famotidine (Pepcid) 20 mg PEG DAILY [facility] Last Admin: 09/17/19 10:33 Dose: 20 mg Ferrous Sulfate (Feosol) 300 mg GT DAILY [facility] Last Admin: 09/17/19 10:35 Dose: 300 mg Furosemide (Lasix Injection -) 40 mg IVPUSH DAILY [facility] Last Admin: 09/17/19 10:53 Dose: 40 mg Vancomycin HCl (Vancomycin (Pre-Docked)) 1,000 mg in 250 mls @ 166.667 mls/hr IVPB BID@0500,1700 [facility]; Protocol Last Admin: 09/17/19 06:14 Dose: 166.667 mls/hr Meropenem 1 gm/ Sodium (Chloride) 100 mls @ 200 mls/hr IVPB Q8H-IV [facility] Last Admin: 09/17/19 10:34 Dose: 200 mls/hr Insulin Aspart (Novolog Vial Sliding Scale -) 1 vial SQ ACHS [facility]; Protocol Last Admin: 09/17/19 11:45 Dose: Not Given Insulin Detemir (Levemir Vial) 30 units SQ AM [facility] Last Admin: 09/17/19 06:26 Dose: 30 units Insulin Detemir (Levemir Vial) 10 units SQ HS [facility] Levothyroxine Sodium (Synthroid -) 50 mcg PO ACBK [facility] Last Admin: 09/17/19 06:14 Dose: 50 mcg Metoprolol Tartrate (Lopressor -) 25 mg PO BID [facility] Prednisone (Deltasone -) 30 mg PO DAILY [facility] Last Admin: 09/17/19 10:34 Dose: 30 mg Thiamine HCl (Vitamin B1 Injection -) 200 mg IM DAILY [facility] Stop: 09/18/19 10:01 Last Admin: 09/17/19 10:33 Dose: 200 mg - Objective Vital Signs: Vital Signs Temperature 98.1 F 09/17/19 10:46 Pulse Rate 95 H 09/17/19 10:46 Respiratory Rate 22 H 09/17/19 12:04 Blood Pressure 108/56 L 09/17/19 10:46 O2 Sat by Pulse Oximetry (%) 98 09/17/19 08:00 Constitutional: Yes: Well Nourished, No Distress, Calm Cardiovascular: Yes: Regular Rate and Rhythm Respiratory: Yes: Regular, Mechanically Ventilated, Rhonchi (diffuse) Gastrointestinal: Yes: Normal Bowel Sounds, Soft Genitourinary: Yes: Incontinence Musculoskeletal: Yes: Muscle Weakness Extremities: Yes: WNL Edema: No Peripheral Pulses WNL: Yes Neurological: Yes: Alert, Oriented Psychiatric: Yes: Alert, Oriented Labs: CBC, BMP 09/16/19 08:10 09/16/19 08:10 INR, PTT INR 1.74 (0.83-1.09) H 09/06/19 17:00 Problem List - Problems (1) Anxiety Assessment/Plan: -Unable to start SSRI 2/2 to interaction with Amiodarone that may lead to QT prolongation Problems reviewed: Yes Code(s): F41.9 - ANXIETY DISORDER, UNSPECIFIED (2) Lethargy Assessment/Plan: -much improved -CT head negative -Seen by Neurology -Thiamine 200 mg IVPB daily x 3 doses -EKG no change Problems reviewed: Yes Code(s): R53.83 - OTHER FATIGUE Assessment/Plan (1) Paroxysmal A-fib Assessment/Plan: -Chronic, tachycardiac -Hold Lopressor -Continue Eliquis -Continue Amiodarone Code(s): I48.0 - PAROXYSMAL ATRIAL FIBRILLATION (2) Sepsis Assessment/Plan: -Likely due to Pneumonia -Meropenem day 7 -Vancomycin day 8 -ID consult -Cultures: Microbiology 09/06/19 17:00 Blood - Peripheral Venous Blood Culture - Final NO GROWTH AFTER 5 DAYS INCUBATION 09/06/19 17:15 Blood - Peripheral Venous Blood Culture - Final NO GROWTH AFTER 5 DAYS INCUBATION 09/07/19 05:30 Sputum - Endotrachea Suction/Ventilator Gram Stain - Final 09/07/19 05:30 Sputum - Endotrachea Suction/Ventilator Sputum Culture - Final S Aureus Pseudomonas Aeruginosa Klebsiella Pneumoniae - Esbl 09/07/19 05:30 Urine For Antigen Detection Legionella Antigen - Final 09/07/19 05:30 Urine For Antigen Detection Streptococcus pneumoniae Antigen (M - Final 09/07/19 06:30 Urine - Urine Clean Catch Urine Culture - Final NO GROWTH OBTAINED Code(s): A41.9 - SEPSIS, UNSPECIFIED ORGANISM Qualifiers: Sepsis type: sepsis due to unspecified organism Sepsis acute organ dysfunction status: unspecified Qualified Code(s): A41.9 - Sepsis, unspecified organism (3) Pneumonia Assessment/Plan: -IV abx -ID consult -afebrile -Pulmonary on board -Bronchodilators Code(s): J18.9 - PNEUMONIA, UNSPECIFIED ORGANISM Qualifiers: Pneumonia type: due to unspecified organism Laterality: bilateral Lung location: lower lobe of lung Qualified Code(s): J18.9 - Pneumonia, unspecified organism (4) Chronic respiratory failure with hypoxia and hypercapnia Assessment/Plan: -Pulmonary on board -Bronchodilators Code(s): J96.11 - CHRONIC RESPIRATORY FAILURE WITH HYPOXIA; J96.12 - CHRONIC RESPIRATORY FAILURE WITH HYPERCAPNIA (5) Anemia Assessment/Plan: -Stool Guaiac negative -Iron% low -started Ferrous sulfate daily -monitor trend -H/H stable Code(s): D64.9 - ANEMIA, UNSPECIFIED (6) CHF (congestive heart failure) Assessment/Plan: -Continue IV furosemide 40 mg BID -Repeat CXR today yesterday negative Code(s): I50.9 - HEART FAILURE, UNSPECIFIED (7) COPD (chronic obstructive pulmonary disease) Assessment/Plan: -on prednisone via GT- tapering dose -Bronchodilators Code(s): J44.9 - CHRONIC OBSTRUCTIVE PULMONARY DISEASE, UNSPECIFIED (8) Diabetes mellitus Assessment/Plan: -A1c at 7.1 -BGM AC HS -ISS -Levemir 26 U AM and 20 U HS -Endocrine consult appreciated Code(s): E11.9 - TYPE 2 DIABETES MELLITUS WITHOUT COMPLICATIONS
[2019-09-17 13:17] VITALS: BMI 26.1
[2019-09-17 13:40] LABS: BASO % 0.2 % (0-2.0); EOS % 1.2 % (0-4.5); HEMATOCRIT 26.2 % (35.4-49); HEMOGLOBIN 8.5 GM/dL (11.7-16.9); LYMPH % 3.7 % (8-40); MCH 29.3 pg (25.7-33.7); MCHC 32.4 g/dl (32.0-35.9); MEAN CELL VOLUME 90.6 fl (80-96); MEAN PLT VOLUME 9.1 fl (7.5-11.1); MONO % 5.9 % (3.8-10.2); PLATELET COUNT 340 K/MM3 (134-434); RBC 2.89 M/mm3 (4.00-5.60); RDW 18.7 % (11.9-15.9); WHITE BLOOD COUNT 16.7 K/mm3 (4.0-10.0)
[2019-09-17 14:13] LABS: BILIRUBIN,TOTAL 0.4 mg/dL (0.2-1); BLOOD UREA NITROGEN 51.2 mg/dL (7-18); CALCIUM 8.3 mg/dL (8.5-10.1); CREATININE 0.6 mg/dL (0.55-1.3); POTASSIUM 4.1 mmol/L (3.5-5.1); TOT PROT 5.5 g/dl (6.4-8.2)
--- NOTE | 2019-09-17 14:43 | PN ---
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 Seems confused. Attempted to educate pt regarding results of mbs and npo status. Pt was distracted and could not attend to my suggestions. Pt's educated and report given. Suggest daily use of PMV, as tolerated, increasing time on valve to increase upper airway function, voicing,communication, socialization, swallowing and to expedite weaning Repeat MBS before PO trials- HIGH RISK OF SILENT ASPIRATION
--- NOTE | 2019-09-17 15:00 | PN ---
Progress Note, Physician History of Present Illness: MORE AWAKE AND ALERT, BUT SAYS CONFUSED NO ACUTE DISTRESS BREATHING NON-LABORED AFEBRILE WBC SL ELEVATED ON PREDNISONE - Current Medication List Current Medications: Active Medications Acetaminophen (Tylenol -) 650 mg PO Q6H PRN PRN Reason: pain or fever Last Admin: 09/14/19 21:35 Dose: 650 mg Albuterol/Ipratropium (Duoneb -) 1 amp NEB RQID [facility] Last Admin: 09/17/19 12:00 Dose: 1 amp Amiodarone HCl (Cordarone -) 200 mg PO DAILY [facility] Last Admin: 09/17/19 10:34 Dose: 200 mg Apixaban (Eliquis -) 5 mg PO BID [facility] Last Admin: 09/17/19 10:33 Dose: 5 mg Atorvastatin Calcium (Lipitor -) 80 mg PO HS [facility] Last Admin: 09/16/19 22:50 Dose: 80 mg Famotidine (Pepcid) 20 mg PEG DAILY [facility] Last Admin: 09/17/19 10:33 Dose: 20 mg Ferrous Sulfate (Feosol) 300 mg GT DAILY [facility] Last Admin: 09/17/19 10:35 Dose: 300 mg Furosemide (Lasix Injection -) 40 mg IVPUSH DAILY [facility] Last Admin: 09/17/19 10:53 Dose: 40 mg Insulin Aspart (Novolog Vial Sliding Scale -) 1 vial SQ [facility]; Protocol Last Admin: 09/17/19 11:45 Dose: Not Given Insulin Detemir (Levemir Vial) 30 units SQ AM [facility] Last Admin: 09/17/19 06:26 Dose: 30 units Insulin Detemir (Levemir Vial) 10 units SQ HS [facility] Levofloxacin (Levaquin -) 500 mg GT DAILY [facility] Levothyroxine Sodium (Synthroid -) 50 mcg PO ACBK [facility] Last Admin: 09/17/19 06:14 Dose: 50 mcg Metoprolol Tartrate (Lopressor -) 25 mg PO BID [facility] Prednisone (Deltasone -) 30 mg PO DAILY [facility] Last Admin: 09/17/19 10:34 Dose: 30 mg Thiamine HCl (Vitamin B1 Injection -) 200 mg IM DAILY [facility] Stop: 09/18/19 10:01 Last Admin: 09/17/19 10:33 Dose: 200 mg - Objective Vital Signs: Vital Signs Temperature 98.1 F 09/17/19 10:46 Pulse Rate 95 H 09/17/19 10:46 Respiratory Rate 22 H 09/17/19 12:04 Blood Pressure 108/56 L 09/17/19 10:46 O2 Sat by Pulse Oximetry (%) 98 09/17/19 08:00 Constitutional: Yes: No Distress Cardiovascular: Yes: Regular Rate and Rhythm, S1, S2 Respiratory: Yes: Mechanically Ventilated Gastrointestinal: Yes: Normal Bowel Sounds, Soft. No: Tenderness Labs: CBC, BMP 09/17/19 13:18 09/17/19 13:18 INR, PTT INR 1.74 (0.83-1.09) H 09/06/19 17:00 Assessment/Plan PNEUMONIA SEPSIS SECONDARY TO PNEUMONIA + SPUTUM C/S MDRO CHRONIC RESPIRATORY FAILURE SUBSTITUTE LEVAQUIN 500MG GT QD X 7D DISCUSSED WITH AT BEDSIDE CONTACT PRECAUTIONS
--- NOTE | 2019-09-17 15:32 | DS ---
Physical Examination Vital Signs: Vital Signs Temperature 98.1 F 09/17/19 10:46 Pulse Rate 95 H 09/17/19 10:46 Respiratory Rate 22 H 09/17/19 12:04 Blood Pressure 108/56 L 09/17/19 10:46 O2 Sat by Pulse Oximetry (%) 98 09/17/19 08:00 Constitutional: Yes: Well Nourished, No Distress, Calm Cardiovascular: Yes: Regular Rate and Rhythm Respiratory: Yes: Mechanically Ventilated Gastrointestinal: Yes: Normal Bowel Sounds, Soft Renal/: Yes: Incontinence Musculoskeletal: Yes: Muscle Weakness Extremities: Yes: Other (generalized atrophy) Edema: No Peripheral Pulses WNL: Yes Neurological: Yes: Alert, Oriented Psychiatric: Yes: Alert, Oriented Labs: CBC, BMP 09/17/19 13:18 09/17/19 13:18 Discharge Summary Problems reviewed: Yes Reason For Visit: PNEUMONIA, SEPSIS Current Active Problems Anemia (Acute) Anxiety (Acute) CHF (congestive heart failure) (Acute) COPD (chronic obstructive pulmonary disease) (Acute) Chronic respiratory failure with hypoxia and hypercapnia (Acute) Diabetes mellitus (Acute) GERD (gastroesophageal reflux disease) (Acute) HLD (hyperlipidemia) (Acute) HTN (hypertension) (Acute) Lethargy (Acute) Paroxysmal A-fib (Acute) Pneumonia (Acute) Sepsis (Acute) Type 2 diabetes mellitus with diabetic autonomic (poly)neuropathy (Acute) Goals: (1) Anxiety Assessment/Plan: -Unable to start SSRI 2/2 to interaction with Amiodarone that may lead to QT prolongation Problems reviewed: Yes Code(s): F41.9 - ANXIETY DISORDER, UNSPECIFIED (2) Lethargy Assessment/Plan: -much improved -CT head negative -Seen by Neurology -received Thiamine 200 mg IVPB daily x 3 doses -EKG no change Problems reviewed: Yes Code(s): R53.83 - OTHER FATIGUE Assessment/Plan (1) Paroxysmal A-fib Assessment/Plan: -Chronic, tachycardiac -Hold Lopressor -Continue Eliquis -Continue Amiodarone Code(s): I48.0 - PAROXYSMAL ATRIAL FIBRILLATION (2) Sepsis Assessment/Plan: -Likely due to Pneumonia -Finished Meropenem day 7 -Finished Vancomycin day 8 -ABX Levaquin 500 mg 1 tab daily x 7 days -ID consult -Cultures: Microbiology 09/06/19 17:00 Blood - Peripheral Venous Blood Culture - Final NO GROWTH AFTER 5 DAYS INCUBATION 09/06/19 17:15 Blood - Peripheral Venous Blood Culture - Final NO GROWTH AFTER 5 DAYS INCUBATION 09/07/19 05:30 Sputum - Endotrachea Suction/Ventilator Gram Stain - Final 09/07/19 05:30 Sputum - Endotrachea Suction/Ventilator Sputum Culture - Final S Aureus Pseudomonas Aeruginosa Klebsiella Pneumoniae - Esbl 09/07/19 05:30 Urine For Antigen Detection Legionella Antigen - Final 09/07/19 05:30 Urine For Antigen Detection Streptococcus pneumoniae Antigen (M - Final 09/07/19 06:30 Urine - Urine Clean Catch Urine Culture - Final NO GROWTH OBTAINED Code(s): A41.9 - SEPSIS, UNSPECIFIED ORGANISM Qualifiers: Sepsis type: sepsis due to unspecified organism Sepsis acute organ dysfunction status: unspecified Qualified Code(s): A41.9 - Sepsis, unspecified organism (3) Pneumonia Assessment/Plan: -IV abx -ID consult -afebrile -Pulmonary on board -Bronchodilators Code(s): J18.9 - PNEUMONIA, UNSPECIFIED ORGANISM Qualifiers: Pneumonia type: due to unspecified organism Laterality: bilateral Lung location: lower lobe of lung Qualified Code(s): J18.9 - Pneumonia, unspecified organism (4) Chronic respiratory failure with hypoxia and hypercapnia Assessment/Plan: -Pulmonary on board -Bronchodilators Code(s): J96.11 - CHRONIC RESPIRATORY FAILURE WITH HYPOXIA; J96.12 - CHRONIC RESPIRATORY FAILURE WITH HYPERCAPNIA (5) Anemia Assessment/Plan: -Stool Guaiac negative -Iron% low -started Ferrous sulfate daily -monitor trend -H/H stable Code(s): D64.9 - ANEMIA, UNSPECIFIED (6) CHF (congestive heart failure) Assessment/Plan: -Continue IV furosemide 40 mg BID -Repeat CXR today yesterday negative Code(s): I50.9 - HEART FAILURE, UNSPECIFIED (7) COPD (chronic obstructive pulmonary disease) Assessment/Plan: -on prednisone via GT- tapering dose -Bronchodilators Code(s): J44.9 - CHRONIC OBSTRUCTIVE PULMONARY DISEASE, UNSPECIFIED (8) Diabetes mellitus Assessment/Plan: -A1c at 7.1 -BGM AC HS -ISS -Levemir 26 U AM and 20 U HS -Endocrine consult appreciated Code(s): E11.9 - TYPE 2 DIABETES MELLITUS WITHOUT COMPLICATIONS Condition: Stable - Instructions Diet, Activity, Other Instructions: Taper prednisone 30 mg GT daily x 3 days 20 mg GT daily x 3 days; 10 mg GT daily x 3 days; 5 mg GT daily x 3 days, then stop Referrals: Ed Jackson MD [Primary Care Provider] - Disposition: [facility] F[facility] - Home Medications Comprehensive Discharge Medication List: Ambulatory Orders Atorvastatin Ca [Lipitor] 80 mg PO DAILY 12/22/12 Latanoprost 0.005% Eye Drops [Xalatan 0.005% Eye Drops -] 1 drop OU HS 12/22/12 Albuterol 2.5/Ipratropium 0.5 [Duoneb -] 1 neb NEB Q4H 09/06/19 Amiodarone HCl 200 mg PO DAILY 09/06/19 Apixaban [Eliquis] 5 mg PO BID 09/06/19 Acetaminophen [Tylenol .Regular Strength -] 650 mg GT Q6H PRN tablet 09/17/19 Famotidine [Pepcid] 20 mg PEG DAILY oral.susp 09/17/19 Ferrous Sulfate [Feosol] 300 mg GT DAILY ud[facility] 09/17/19 Furosemide Oral Solution [Lasix Oral Solution -] 40 mg GT DAILY #35 udc Insulin (Levemir) [Levemir Vial] 20 units SQ HS units 09/17/19 Insulin (Levemir) [Levemir Vial] 30 units SQ AM units 09/17/19 Insulin Sliding Scale [Novolog Vial Sliding Scale -] 1 vial SQ ACHS units 09/17 Levothyroxine [Synthroid -] 1 tab GT DAILY #30 tab 09/17/19 Metoprolol Tartrate [Lopressor -] 25 mg PO BID tablet 09/17/19 levoFLOXacin [Levaquin -] 500 mg GT DAILY #7 tablet 09/17/19 predniSONE [Deltasone -] 30 mg PO DAILY tablet 09/17/19 Prescription Drug Monitoring Program (I-STOP) results: I-STOP reviewed and no issues identified
[2019-09-18] MEDS: ATORVASTATIN CA 80 MG TABLET (FP) PO SCH (00:55)
[2019-09-18] MEDS: APIXABAN 5 MG TABLET PO SCH ×2 (00:56→10:05)
[2019-09-18] MEDS: METOPROLOL TARTRATE 25 MG TABLET (FP) PO SCH ×2 (00:56→10:59)
[2019-09-18] MEDS: INSULIN SLIDING SCALE (NOVOLOG) 1 VIAL SQ SCH ×2 (00:59→07:15)
[2019-09-18] MEDS: INSULIN (LEVEMIR) 100 UNITS/ML UNITS SQ SCH (07:14)
[2019-09-18] MEDS: LEVOTHYROXINE NA 50 MCG TABLET (FP) PO SCH (07:16)
[2019-09-18] MEDS: ALBUTEROL SO4 2.5/IPRATROPIUM 0.5 INH SOL 3 ML VIAL.NEB. NEB SCH (08:30)
[2019-09-18] MEDS ORDERED: PT OWN MED DRAWER 7, Y5N ONE (09:34)
--- NOTE | 2019-09-18 09:48 | PN ---
Progress Note, Physician Chief Complaint: Pneumonia Sepsis Afib History of Present Illness: Previous notes and events reviewed awake and alert NAD mechanically ventilated no acute events overnight reported patient is being discharged to [facility] today - Current Medication List Current Medications: Active Medications Acetaminophen (Tylenol -) 650 mg PO Q6H PRN PRN Reason: pain or fever Last Admin: 09/14/19 21:35 Dose: 650 mg Albuterol/Ipratropium (Duoneb -) 1 amp NEB RQID [facility] Last Admin: 09/17/19 20:05 Dose: 1 amp Amiodarone HCl (Cordarone -) 200 mg PO DAILY [facility] Last Admin: 09/17/19 10:34 Dose: 200 mg Apixaban (Eliquis -) 5 mg PO BID [facility] Last Admin: 09/18/19 00:56 Dose: 5 mg Atorvastatin Calcium (Lipitor -) 80 mg PO HS [facility] Last Admin: 09/18/19 00:55 Dose: 80 mg Famotidine (Pepcid) 20 mg PEG DAILY [facility] Last Admin: 09/17/19 10:33 Dose: 20 mg Ferrous Sulfate (Feosol) 300 mg GT DAILY [facility] Last Admin: 09/17/19 10:35 Dose: 300 mg Furosemide (Lasix Injection -) 40 mg IVPUSH DAILY [facility] Last Admin: 09/17/19 10:53 Dose: 40 mg Insulin Aspart (Novolog Vial Sliding Scale -) 1 vial SQ [facility]; Protocol Last Admin: 09/18/19 07:15 Dose: 2 units Insulin Detemir (Levemir Vial) 30 units SQ AM [facility] Last Admin: 09/18/19 07:14 Dose: 30 units Insulin Detemir (Levemir Vial) 10 units SQ HS [facility] Last Admin: 09/18/19 00:58 Dose: 10 units Levofloxacin (Levaquin -) 500 mg GT DAILY [facility] Last Admin: 09/17/19 15:48 Dose: 500 mg Levothyroxine Sodium (Synthroid -) 50 mcg PO ACBK [facility] Last Admin: 09/18/19 07:16 Dose: 50 mcg Metoprolol Tartrate (Lopressor -) 25 mg PO BID [facility] Last Admin: 09/18/19 00:56 Dose: 25 mg Prednisone (Deltasone -) 30 mg PO DAILY [facility] Last Admin: 09/17/19 10:34 Dose: 30 mg Thiamine HCl (Vitamin B1 Injection -) 200 mg IM DAILY [facility] Stop: 09/18/19 10:01 Last Admin: 09/17/19 10:33 Dose: 200 mg - Objective Vital Signs: Vital Signs Temperature 98.6 F 09/18/19 06:00 Pulse Rate 74 09/18/19 06:00 Respiratory Rate 20 09/18/19 06:00 Blood Pressure 130/55 L 09/18/19 06:00 O2 Sat by Pulse Oximetry (%) 98 09/17/19 21:00 Constitutional: Yes: No Distress, Calm Eyes: Yes: Conjunctiva Clear HENT: Yes: Atraumatic Neck: Yes: Other (trach) Cardiovascular: Yes: Regular Rate and Rhythm Respiratory: Yes: Regular, Diminished, Mechanically Ventilated Gastrointestinal: Yes: Normal Bowel Sounds, Soft Genitourinary: Yes: Incontinence Musculoskeletal: Yes: Muscle Weakness Extremities: Yes: WNL Edema: No Neurological: Yes: Alert, Pre-Existing Deficit Psychiatric: Yes: Alert Labs: CBC, BMP 09/17/19 13:18 09/17/19 13:18 INR, PTT INR 1.74 (0.83-1.09) H 09/06/19 17:00 Microbiology 09/16/19 14:30 Urine - Urine Clean Catch Urine Culture - Final NO GROWTH OBTAINED 09/16/19 08:10 Blood - Peripheral Venous Blood Culture - Preliminary NO GROWTH OBTAINED AFTER 48 HOURS, INCUBATION TO CONTINUE FOR 3 DAYS. 09/16/19 08:20 Blood - Peripheral Venous Blood Culture - Preliminary NO GROWTH OBTAINED AFTER 48 HOURS, INCUBATION TO CONTINUE FOR 3 DAYS. 09/06/19 17:00 Blood - Peripheral Venous Blood Culture - Final NO GROWTH AFTER 5 DAYS INCUBATION 09/06/19 17:15 Blood - Peripheral Venous Blood Culture - Final NO GROWTH AFTER 5 DAYS INCUBATION 09/07/19 05:30 Sputum - Endotrachea Suction/Ventilator Gram Stain - Final 09/07/19 05:30 Sputum - Endotrachea Suction/Ventilator Sputum Culture - Final S Aureus Pseudomonas Aeruginosa Klebsiella Pneumoniae - Esbl 09/07/19 05:30 Urine For Antigen Detection Legionella Antigen - Final 09/07/19 05:30 Urine For Antigen Detection Streptococcus pneumoniae Antigen (M - Final 09/07/19 06:30 Urine - Urine Clean Catch Urine Culture - Final NO GROWTH OBTAINED Problem List - Problems (1) Anemia Code(s): D64.9 - ANEMIA, UNSPECIFIED Qualifiers: Anemia type: B12 deficiency (2) Anxiety Code(s): F41.9 - ANXIETY DISORDER, UNSPECIFIED (3) CHF (congestive heart failure) Code(s): I50.9 - HEART FAILURE, UNSPECIFIED (4) COPD (chronic obstructive pulmonary disease) Code(s): J44.9 - CHRONIC OBSTRUCTIVE PULMONARY DISEASE, UNSPECIFIED (5) Chronic respiratory failure with hypoxia and hypercapnia Code(s): J96.11 - CHRONIC RESPIRATORY FAILURE WITH HYPOXIA; J96.12 - CHRONIC RESPIRATORY FAILURE WITH HYPERCAPNIA (6) Diabetes mellitus Code(s): E11.9 - TYPE 2 DIABETES MELLITUS WITHOUT COMPLICATIONS (7) GERD (gastroesophageal reflux disease) Code(s): K21.9 - GASTRO-ESOPHAGEAL REFLUX DISEASE WITHOUT ESOPHAGITIS (8) HLD (hyperlipidemia) Code(s): E78.5 - HYPERLIPIDEMIA, UNSPECIFIED (9) HTN (hypertension) Code(s): I10 - ESSENTIAL (PRIMARY) HYPERTENSION (10) Paroxysmal A-fib Code(s): I48.0 - PAROXYSMAL ATRIAL FIBRILLATION (11) Pneumonia Code(s): J18.9 - PNEUMONIA, UNSPECIFIED ORGANISM Qualifiers: Pneumonia type: due to unspecified organism Laterality: bilateral Lung location: lower lobe of lung Qualified Code(s): J18.9 - Pneumonia, unspecified organism Assessment/Plan patient is being discharged to [facility] facility
[2019-09-18] MEDS: predniSONE 10 MG TABLET (UD) PO SCH (10:05)
[2019-09-18] MEDS: FERROUS SO4 300 MG/5 ML ORAL SOLN UNIT DOSE CUPS GT SCH (10:05)
[2019-09-18] MEDS: THIAMINE HCL 200 MG/2 ML VIAL IM SCH (10:06)
[2019-09-18] MEDS: FAMOTIDINE 40 MG/5 ML ORAL SUSPENSION PEG SCH (10:07)
[2019-09-18 10:26] VITALS: PULSE 76
[2019-09-18] MEDS: FUROSEMIDE 40 MG/4 ML INJECTABLE VIAL IVPUSH SCH (10:59)
[2019-09-18] MEDS: AMIODARONE HCL 200 MG TABLET PO SCH (11:05)
--- NOTE | 2019-09-18 11:58 | PN ---
Progress Note (short form) - Note Progress Note: GI NOte: I came to do the GI consult but the patient was just discharged. I became aware of this consult just last night.
[2019-09-18 13:01] VITALS: BP 110/66; TEMP 98
== END 2019-09-18 11:43 | DRG 870 ==
LOC: JER 16:13 → JICU 18:52 → J5S 09-11 23:43
PROVIDERS: ADMIT Internal Medicine; ATTEND Family Medicine
PROC: 5A1955Z Respiratory Ventilation, Greater than 96 Consecutive Hours (ICD-10-PCS; principal; 2019-09-06)
PROC: 30233N1 Transfusion of Nonautologous Red Blood Cells into Peripheral Vein, Percutaneous Approach (ICD-10-PCS; 2019-09-09)
DX: A41.9 Sepsis, unspecified organism (principal); J18.9 Pneumonia, unspecified organism; G93.41 Metabolic encephalopathy; J96.11 Chronic respiratory failure with hypoxia; J96.12 Chronic respiratory failure with hypercapnia; J44.9 Chronic obstructive pulmonary disease, unspecified; K21.9 Gastro-esophageal reflux disease without esophagitis; E03.9 Hypothyroidism, unspecified; Z93.0 Tracheostomy status; E78.5 Hyperlipidemia, unspecified; I10 Essential (primary) hypertension; I48.0 Paroxysmal atrial fibrillation; D64.9 Anemia, unspecified; F41.9 Anxiety disorder, unspecified; I25.10 Atherosclerotic heart disease of native coronary artery without angina pectoris; E11.43 Type 2 diabetes mellitus with diabetic autonomic (poly)neuropathy; Z95.5 Presence of coronary angioplasty implant and graft; D72.829 Elevated white blood cell count, unspecified
CPT/HCPCS: 36415; 36430; 36511; 36600; 70450-TC; 71045-TC-FY; 74230-TC-FY; 76700-TC; 80048; 80053; 81003; 82272; 82607; 82728; 82803; 82962; 83036; 83540; 83550; 83605; 83735; 84100; 84443; 84484; 85025; 85027; 85610; 85730; 86850; 86900; 86901; 86922; 87040; 87070; 87086; 87186; 87205; 87804; 87899; 92611-GN; 93005; 93010; 94002; 94640; 97161-GP; 99284-25; G0480; J0131; J7030; P9038; P9058